=== PATIENT | female | born 1935 | race Caucasian/White ===

== ENCOUNTER → 2016-08-23 | Outpatient (REF) | payer MEDICARE, MEDICAID ==
[~2016-08-23] MED LIST: /AMLO25TA PO; /LEVE75TA PO; /MOM400 PO; /MOXI40TA PO; /PANT40TA PO; ACET50TA PO; ASPI81TA85 PO; BENA25TA4 PO; DILA100C PO; DOCU10ELUD PO; FURO40TA2 PO; GABA100C PO; HEPA50VL SQ; LEVA12INH INH; LIDO1DIS2 TD; LOPR50TA PO; MS C200T PO; MYLASSUD PO; NEUR250S PO; NYAM10003 TOP; PERCOCET PO; PHENYTOIN PO; PREPOIN TOP; PRIM25TA PO; PRIN10TA PO; ZOFR4TAB3 PO
[2016-08-23 14:16] LABS: YEAST LIKE CELL URINE AUTO SMALL
== END ==
PROVIDERS: ATTEND Internal Medicine
DX: N39.0 Urinary tract infection, site not specified (principal)

== ENCOUNTER → 2016-09-25 | Outpatient (REF) | payer MEDICARE, MEDICAID ==
[2016-09-25 12:48] LABS: BASO % 0.4 % (0.0-1.0); EOS # 0.3 K/mm3 (0.0-0.50); EOS % 2.4 % (0.0-3.0); LARGE UNSTAINED CELL # 0.3 K/mm3 (0.0-0.4); LARGE UNSTAINED CELL % 1.9 % (0.0-4.0); LYMPH # 1.8 K/mm3 (1.5-4.5); LYMPH % 13.2 % (24.0-44.0); MEAN CORPUSCULAR HEMOGLOBIN 33.5 pg (27.0-33.0); MEAN CORPUSCULAR HGB CONC 34.3 g/dl (32.0-36.5); MEAN CORPUSCULAR VOLUME 97.5 fl (80.0-96.0); MONO # 0.7 K/mm3 (0.0-0.8); MONO % 5.5 % (0.0-5.0); NEUTROPHILS # 10.2 K/mm3 (1.8-7.7); NEUTROPHILS % 76.6 % (36.0-66.0); PLATELET COUNT, AUTOMATED 541 k/mm3 (150-450); RED CELL DISTRIBUTION WIDTH 12.2 % (11.5-14.5); WHITE BLOOD COUNT 13.3 K/mm3 (4.0-10.0)
[2016-09-25 13:34] LABS: ALBUMIN 2.5 GM/DL (3.2-5.2); ALKALINE PHOSPHATASE 146 U/L (45-117); ALT/SGPT 31 U/L (12-78); ANION GAP 11 MEQ/L (8-16); AST/SGOT 45 U/L (15-37); BILIRUBIN,TOTAL 0.2 MG/DL (0.2-1.0); BLOOD UREA NITROGEN 37 MG/DL (7-18); CALCIUM LEVEL 8.7 MG/DL (8.8-10.2); CARBON DIOXIDE LEVEL 26 MEQ/L (21-32); CHLORIDE LEVEL 93 MEQ/L (98-107); CREATININE FOR GFR 1.19 MG/DL (0.55-1.02); GLOMERULAR FILTRATION RATE 46.3 (>32); GLUCOSE, FASTING 101 MG/DL (83-110); POTASSIUM SERUM 4.1 MEQ/L (3.5-5.1); SODIUM LEVEL 130 MEQ/L (136-145); TOTAL PROTEIN 7.5 GM/DL (6.4-8.2)
== END ==
PROVIDERS: ATTEND Internal Medicine
DX: R53.83 Other fatigue (principal)

== ENCOUNTER → 2016-09-28 | Outpatient (REF) | payer MEDICARE, MEDICAID ==
[2016-09-28 10:10] LABS: MEAN CORPUSCULAR HEMOGLOBIN 33.2 pg (27.0-33.0); MEAN CORPUSCULAR HGB CONC 33.8 g/dl (32.0-36.5); MEAN CORPUSCULAR VOLUME 98.1 fl (80.0-96.0); RED CELL DISTRIBUTION WIDTH 12.4 % (11.5-14.5)
== END ==
PROVIDERS: ATTEND Internal Medicine
DX: D72.829 Elevated white blood cell count, unspecified (principal)

== ENCOUNTER → 2016-10-02 | Outpatient (REF) | payer MEDICARE, MEDICAID | PROVIDERS: ATTEND Internal Medicine | DX: R31.9 Hematuria, unspecified (principal) ==

== ENCOUNTER → 2016-10-03 | Outpatient (REF) | payer MEDICARE, MEDICAID ==
--- NOTE | 2016-10-03 16:01 | REP ---
KUB: Two views: History: Urinary retention. Comparison study: 08/17/2015. Findings: There is diffuse osteopenia. Bowel gas pattern is unremarkable. Vascular calcification is noted. There is a 1.2 cm rim-calcification in the right pelvis. This may be a phlebolith. It is unchanged. Impression: Bowel gas pattern is unremarkable. Probable phlebolith in the right pelvis. Otherwise negative KUB. Signed by Adrian Calvo MD 10/03/2016 05:08 P
[2016-10-03 17:06] LABS: BASO # 0.1 K/mm3 (0.0-0.2); BASO % 0.6 % (0.0-1.0); EOS # 0.4 K/mm3 (0.0-0.50); EOS % 3.9 % (0.0-3.0); LARGE UNSTAINED CELL # 0.3 K/mm3 (0.0-0.4); LARGE UNSTAINED CELL % 2.4 % (0.0-4.0); LYMPH # 1.6 K/mm3 (1.5-4.5); LYMPH % 14.1 % (24.0-44.0); MEAN CORPUSCULAR HEMOGLOBIN 33.5 pg (27.0-33.0); MEAN CORPUSCULAR VOLUME 98.5 fl (80.0-96.0); MONO # 0.6 K/mm3 (0.0-0.8); MONO % 5.2 % (0.0-5.0); NEUTROPHILS # 8.3 K/mm3 (1.8-7.7); NEUTROPHILS % 73.7 % (36.0-66.0); PLATELET COUNT, AUTOMATED 600 k/mm3 (150-450); RED CELL DISTRIBUTION WIDTH 12.3 % (11.5-14.5); WHITE BLOOD COUNT 11.3 K/mm3 (4.0-10.0)
[2016-10-03 17:28] LABS: ALBUMIN 2.8 GM/DL (3.2-5.2); ALBUMIN/GLOBULIN RATIO 0.56 (1.00-1.93); BILIRUBIN,TOTAL 0.1 MG/DL (0.2-1.0); CREATININE FOR GFR 1.24 MG/DL (0.55-1.02); GLOMERULAR FILTRATION RATE 44.2 (>32); TOTAL PROTEIN 7.8 GM/DL (6.4-8.2)
== END ==
PROVIDERS: ATTEND Internal Medicine
DX: R33.8 Other retention of urine (principal)

== ENCOUNTER → 2016-10-06 | Outpatient (CLI) | payer MEDICARE ==
--- NOTE | 2016-10-06 11:44 | REP ---
RENAL AND BLADDER ULTRASOUND: Real-time sonographic evaluation of the kidneys is performed. The kidneys are normal in size and echotexture, right kidney measuring 12.5 x 7.5 x 7.2 cm and the left kidney 12.0 x 6.5 x 6.9 cm. There is moderate right hydronephrosis. There is moderately severe hydronephrosis on the left. Dilated right renal pelvis measures 36 mm and dilated left renal pelvis 39 mm. There is mild bilateral cortical thinning. A calculus in the upper pole of the right kidney measures 4 mm in diameter. The urinary bladder is mild to moderately distended with thickened trabeculated wall. IMPRESSION: Moderate right hydronephrosis, moderately severe left hydronephrosis. 4 mm stone upper pole right kidney. Thickened trabeculated bladder wall. Signed by Bang Hendricks MD 10/06/2016 04:59 P
== END ==
LOC: M RAD 10:39
PROVIDERS: ATTEND Internal Medicine
DX: R31.9 Hematuria, unspecified (principal); R33.9 Retention of urine, unspecified; G40.919 Epilepsy, unspecified, intractable, without status epilepticus

== ENCOUNTER → 2016-10-06 | Outpatient (REF) | payer MEDICARE, MEDICAID ==
[2016-10-06 12:03] LABS: MEAN CORPUSCULAR HEMOGLOBIN 32.9 pg (27.0-33.0); MEAN CORPUSCULAR HGB CONC 32.8 g/dl (32.0-36.5); MEAN CORPUSCULAR VOLUME 100.3 fl (80.0-96.0); RED CELL DISTRIBUTION WIDTH 12.9 % (11.5-14.5); WHITE BLOOD COUNT 11.4 K/mm3 (4.0-10.0)
[2016-10-06 12:16] LABS: CALCIUM LEVEL 8.8 MG/DL (8.8-10.2); CREATININE FOR GFR 0.99 MG/DL (0.55-1.02); GLOMERULAR FILTRATION RATE 57.3 (>32)
[2016-10-06 12:20] LABS: POTASSIUM SERUM 5.2 MEQ/L (3.5-5.1)
== END ==
PROVIDERS: ATTEND Internal Medicine
DX: G40.919 Epilepsy, unspecified, intractable, without status epilepticus (principal)

== ENCOUNTER → 2016-10-09 | Outpatient (REF) | payer MEDICARE ==
[2016-10-09 11:21] LABS: MEAN CORPUSCULAR HEMOGLOBIN 34.2 pg (27.0-33.0); MEAN CORPUSCULAR HGB CONC 33.9 g/dl (32.0-36.5); MEAN CORPUSCULAR VOLUME 100.9 fl (80.0-96.0); RED CELL DISTRIBUTION WIDTH 13.2 % (11.5-14.5); WHITE BLOOD COUNT 9.5 K/mm3 (4.0-10.0)
[2016-10-09 12:03] LABS: ANION GAP 13 MEQ/L (8-16); BLOOD UREA NITROGEN 28 MG/DL (7-18); CALCIUM LEVEL 9.2 MG/DL (8.8-10.2); CARBON DIOXIDE LEVEL 28 MEQ/L (21-32); CHLORIDE LEVEL 93 MEQ/L (98-107); CREATININE FOR GFR 0.76 MG/DL (0.55-1.02); GLOMERULAR FILTRATION RATE > 60.0 (>32); GLUCOSE, FASTING 75 MG/DL (83-110); POTASSIUM SERUM 4.6 MEQ/L (3.5-5.1); SODIUM LEVEL 134 MEQ/L (136-145)
== END ==
PROVIDERS: ATTEND Internal Medicine
DX: N13.30 Unspecified hydronephrosis (principal)

== ENCOUNTER → 2016-10-13 | Outpatient (CLI) | payer MEDICARE ==
--- NOTE | 2016-10-13 10:15 | REP ---
CT study abdomen and pelvis without IV or oral contrast: Renal stone protocol. History: Hydronephrosis. Comparison CT study is from December 27, 2012. This was a CT study of the chest. CT findings: Preliminary digital cam maker radiograph shows an unremarkable bowel gas pattern. The lung bases show some mild discoid atelectasis in the right base. Left hemidiaphragm shows an eventration and is elevated. There is evidence of a small amount of pleural fluid in the left base. The liver and the spleen are normal in size, homogeneous in texture. No adrenal lesion is seen on either side. Pancreas is unremarkable. The gallbladder is not seen. The patient does not give a history of cholecystectomy. It may be tiny and contracted. There is some vascular calcification. A Luis catheter is seen in the urinary bladder. There is formed stool producing mild distension of the rectum. Small and large intestinal bowel loops are unremarkable. No abdominal wall defect is seen. There is no evidence of free air or free fluid. There is right-sided hydronephrosis and hydroureter moderate in degree. There are calcific densities in the intrarenal collecting system of the right kidney posteriorly at mid renal level. The right ureter is dilated and can be traced distally to the level of the mid to distal pelvis. There are some calcifications adjacent to the distal ureter but no definite ureteral stone is seen. No left ureteral calculus is observed. There is mild left-sided hydronephrosis. No intrarenal nephrolithiasis is noted on the left. No bony destructive lesion is seen. There are degenerative spondylosis changes in the lower lumbar spine. Impression: 1. Bilateral hydronephrosis. Intrarenal nephrolithiasis on the right. No ureteral stone is seen. Bilateral ureteral dilation is observed to the distal pelvis. 2. Formed stool distends the rectum, question fecal impaction. 3. Luis catheter. 4. Small left pleural effusion. Gallbladder not visualized, question small and contracted. Signed by Adrian Calvo MD 10/13/2016 01:59 P
== END ==
LOC: M RAD 09:29
PROVIDERS: ATTEND Nurse Practitioner Adult Health
DX: N13.30 Unspecified hydronephrosis (principal)

== ENCOUNTER → 2016-10-25 | Outpatient (CLI) | payer MEDICARE ==
--- NOTE | 2016-10-25 11:07 | REP ---
Clinical: Urinary retention. Technique: Real time soni scale ultrasound examination using curved array transducer. Findings: Bilateral kidneys demonstrate cortical thinning and prominent central sinus fat consistent with chronic medical renal disease and atrophy. Moderate bilateral hydronephrosis and proximal hydroureter noted. Luis catheter in collapsed bladder. Right kidney measures 11.3 x 6.9 x 5.6 cm; renal pelvis measures 23 mm. Left kidney measures 12.1 x 6.2 x 4.6 cm; renal pelvis measures 23 mm. Impression: Chronic medical renal disease with moderate bilateral hydronephrosis. Signed by Bart Cunningham MD 10/25/2016 10:59 A
== END ==
LOC: M RAD 10:23
PROVIDERS: ATTEND Nurse Practitioner Adult Health
DX: R33.9 Retention of urine, unspecified (principal)

== ENCOUNTER → 2016-11-28 | Outpatient (REF) | payer MEDICARE, MEDICAID ==
[2016-11-28 11:14] LABS: MEAN CORPUSCULAR HEMOGLOBIN 35.4 pg (27.0-33.0); MEAN CORPUSCULAR HGB CONC 33.9 g/dl (32.0-36.5); MEAN CORPUSCULAR VOLUME 104.6 fl (80.0-96.0); RED CELL DISTRIBUTION WIDTH 13.1 % (11.5-14.5); WHITE BLOOD COUNT 8.6 K/mm3 (4.0-10.0)
== END ==
PROVIDERS: ATTEND Internal Medicine
DX: D64.9 Anemia, unspecified (principal)

== ENCOUNTER → 2016-12-14 | Outpatient (CLI) | payer MEDICARE ==
--- NOTE | 2016-12-14 13:29 | REP ---
Clinical: Hydronephrosis. Comparison: 10/25/2016. Technique: Real time soni scale and color evaluation using curved array transducer. Findings: The kidneys are normal in reniform shape and size demonstrating increased medullary sinus fat and associated cortical thinning suggesting chronic medical renal disease. Mild bilateral hydronephrosis and proximal hydroureter is appreciated which appears mildly improved compared to 10/25/2016. No obvious nephrolithiasis, cystic or mass lesions identified. Right kidney measures 9.4 x 4.6 x 5.0 cm. Left kidney measures 10.5 x 3.5 x 5.1 cm. Impression: Kidneys demonstrate changes related to chronic medical renal disease as well as mild bilateral hydronephrosis mildly improved compared to prior examination. Signed by Bart Cunningham MD 12/14/2016 01:22 P
== END ==
LOC: M RAD 12:40
PROVIDERS: ATTEND Nurse Practitioner Adult Health
DX: N13.30 Unspecified hydronephrosis (principal)

== ENCOUNTER → 2017-01-03 | Outpatient (REF) | payer MEDICARE ==
[2017-01-03 10:37] LABS: MEAN CORPUSCULAR HEMOGLOBIN 35.6 pg (27.0-33.0); MEAN CORPUSCULAR HGB CONC 34.5 g/dl (32.0-36.5); RED CELL DISTRIBUTION WIDTH 12.2 % (11.5-14.5); WHITE BLOOD COUNT 7.1 K/mm3 (4.0-10.0)
[2017-01-03 10:54] LABS: ALBUMIN 2.8 GM/DL (3.2-5.2); ALBUMIN/GLOBULIN RATIO 0.76 (1.00-1.93); ALKALINE PHOSPHATASE 112 U/L (45-117); ALT/SGPT 21 U/L (12-78); ANION GAP 9 MEQ/L (8-16); AST/SGOT 19 U/L (15-37); BILIRUBIN,TOTAL 0.2 MG/DL (0.2-1.0); BLOOD UREA NITROGEN 20 MG/DL (7-18); CALCIUM LEVEL 8.7 MG/DL (8.8-10.2); CARBON DIOXIDE LEVEL 28 MEQ/L (21-32); CHLORIDE LEVEL 95 MEQ/L (98-107); CREATININE FOR GFR 0.61 MG/DL (0.55-1.02); GLOMERULAR FILTRATION RATE > 60.0 (>32); GLUCOSE, FASTING 112 MG/DL (83-110); POTASSIUM SERUM 4.1 MEQ/L (3.5-5.1); SODIUM LEVEL 132 MEQ/L (136-145); TOTAL PROTEIN 6.5 GM/DL (6.4-8.2)
[2017-01-06 00:07] LABS: PHENOBARBITAL (PRIMIDONE) 6 ug/mL (15-40)
== END ==
PROVIDERS: ATTEND Internal Medicine
DX: G40.909 Epilepsy, unspecified, not intractable, without status epilepticus (principal)

== ENCOUNTER → 2017-01-24 | Outpatient (REF) ==
[2017-01-26 01:12] LABS: PHENOBARBITAL (PRIMIDONE) 8 ug/mL (15-40)
== END ==
PROVIDERS: ATTEND Internal Medicine
DX: G40.909 Epilepsy, unspecified, not intractable, without status epilepticus (principal)

== ENCOUNTER → 2017-02-08 | Outpatient (REF) | payer MEDICARE, MEDICAID ==
[2017-02-09 00:23] LABS: TRIPLE PHOSPHATE CRYSTALS SMALL
== END ==
PROVIDERS: ATTEND Internal Medicine
DX: R30.0 Dysuria (principal)

== ENCOUNTER → 2017-02-12 | Outpatient (REF) | payer MEDICARE, MEDICAID | PROVIDERS: ATTEND Internal Medicine | DX: N39.0 Urinary tract infection, site not specified (principal) ==

== ENCOUNTER → 2017-03-14 | Outpatient (REF) | payer MEDICARE, MEDICAID | PROVIDERS: ATTEND Internal Medicine | DX: R31.9 Hematuria, unspecified (principal) ==

== ENCOUNTER → 2017-03-20 | Outpatient (REF) | payer MEDICARE, MEDICAID | PROVIDERS: ATTEND Internal Medicine | DX: N39.0 Urinary tract infection, site not specified (principal) ==

== ENCOUNTER → 2017-04-06 | Outpatient (REF) | payer MEDICARE, MEDICAID | PROVIDERS: ATTEND Internal Medicine | DX: Z00.00 Encounter for general adult medical examination without abnormal findings (principal) ==

== ENCOUNTER → 2017-05-16 | Outpatient (REF) | payer MEDICARE, MEDICAID ==
[2017-05-16 13:30] LABS: BASO % 0.6 % (0.0-1.0); EOS # 0.5 10^3/uL (0.0-0.50); EOS % 6.9 % (0.0-3.0); IMMATURE GRANULOCYTE % 0.1 % (0-0); LYMPH # 2.4 10^3/uL (1.5-4.5); LYMPH % 33.3 % (24.0-44.0); MEAN CORPUSCULAR HEMOGLOBIN 33.9 pg (27.0-33.0); MEAN CORPUSCULAR HGB CONC 33.5 g/dl (32.0-36.5); MEAN CORPUSCULAR VOLUME 101.1 fl (80.0-96.0); MONO # 0.7 10^3/uL (0.0-0.8); MONO % 9.1 % (0.0-5.0); NEUTROPHILS # 3.6 10^3/uL (1.8-7.7); PLATELET COUNT, AUTOMATED 293 10^3/uL (150-450); RED CELL DISTRIBUTION WIDTH 12.6 % (11.5-14.5); WHITE BLOOD COUNT 7.3 10^3/uL (4.0-10.0)
--- NOTE | 2017-05-16 13:52 | REP ---
Chest one-view HISTORY: Fever Comparison: 06/08/2016 There is poor inspiratory effort. Linear density is present in the right lower lobe consistent with scar. The left lung is clear. The cardiac silhouette is enlarged. The pulmonary vasculature is normal in appearance. Impression: Cardiomegaly. Signed by Raymond Chambers MD 05/16/2017 01:43 P
[2017-05-16 13:55] LABS: ALBUMIN/GLOBULIN RATIO 0.79 (1.00-1.93); ALKALINE PHOSPHATASE 105 U/L (45-117); ALT/SGPT 31 U/L (12-78); ANION GAP 9 MEQ/L (8-16); AST/SGOT 30 U/L (15-37); BILIRUBIN,TOTAL 0.2 MG/DL (0.2-1.0); BLOOD UREA NITROGEN 17 MG/DL (7-18); CALCIUM LEVEL 8.8 MG/DL (8.8-10.2); CARBON DIOXIDE LEVEL 30 MEQ/L (21-32); CHLORIDE LEVEL 95 MEQ/L (98-107); CREATININE FOR GFR 0.65 MG/DL (0.55-1.02); GLOMERULAR FILTRATION RATE > 60.0 (>32); GLUCOSE, FASTING 115 MG/DL (83-110); POTASSIUM SERUM 4.1 MEQ/L (3.5-5.1); SODIUM LEVEL 134 MEQ/L (136-145); TOTAL PROTEIN 6.8 GM/DL (6.4-8.2)
== END ==
PROVIDERS: ATTEND Internal Medicine
DX: R50.9 Fever, unspecified (principal); R06.02 Shortness of breath

== ENCOUNTER → 2017-06-25 | Outpatient (REF) | payer MEDICARE, MEDICAID | PROVIDERS: ATTEND Internal Medicine | DX: R10.9 Unspecified abdominal pain (principal) ==

== ENCOUNTER → 2017-07-04 | Outpatient (REF) | payer MEDICARE, MEDICAID ==
[2017-07-04 10:29] LABS: MEAN CORPUSCULAR HEMOGLOBIN 33.6 pg (27.0-33.0); MEAN CORPUSCULAR HGB CONC 33.4 g/dl (32.0-36.5); MEAN CORPUSCULAR VOLUME 100.5 fl (80.0-96.0); PLATELET COUNT, AUTOMATED 319 10^3/uL (150-450); RED CELL DISTRIBUTION WIDTH 12.3 % (11.5-14.5); WHITE BLOOD COUNT 9.1 10^3/uL (4.0-10.0)
[2017-07-04 10:49] LABS: ALBUMIN/GLOBULIN RATIO 0.73 (1.00-1.93); ALKALINE PHOSPHATASE 99 U/L (45-117); ALT/SGPT 25 U/L (12-78); ANION GAP 11 MEQ/L (8-16); AST/SGOT 17 U/L (7-37); BILIRUBIN,TOTAL 0.3 MG/DL (0.2-1.0); BLOOD UREA NITROGEN 22 MG/DL (7-18); CALCIUM LEVEL 9.1 MG/DL (8.8-10.2); CARBON DIOXIDE LEVEL 28 MEQ/L (21-32); CHLORIDE LEVEL 96 MEQ/L (98-107); CREATININE FOR GFR 0.68 MG/DL (0.55-1.02); GLOMERULAR FILTRATION RATE > 60.0 (>32); GLUCOSE, FASTING 127 MG/DL (83-110); POTASSIUM SERUM 4.7 MEQ/L (3.5-5.1); SODIUM LEVEL 135 MEQ/L (136-145); TOTAL PROTEIN 7.1 GM/DL (6.4-8.2)
== END ==
PROVIDERS: ATTEND Internal Medicine
DX: R56.9 Unspecified convulsions (principal)

== ENCOUNTER → 2017-08-21 | Outpatient (REF) | LOC: M RAD 11:51 | DX: Z00.00 Encounter for general adult medical examination without abnormal findings (principal) ==

== ENCOUNTER → 2017-10-03 | Outpatient (REF) | payer MEDICARE, MEDICAID ==
[2017-10-03 08:28] LABS: ANION GAP 5 MEQ/L (8-16); BLOOD UREA NITROGEN 15 MG/DL (7-18); CALCIUM LEVEL 8.5 MG/DL (8.8-10.2); CARBON DIOXIDE LEVEL 31 MEQ/L (21-32); CHLORIDE LEVEL 97 MEQ/L (98-107); CREATININE FOR GFR 0.51 MG/DL (0.55-1.30); GLOMERULAR FILTRATION RATE > 60.0 (>32); GLUCOSE, FASTING 79 MG/DL (70-100); SODIUM LEVEL 133 MEQ/L (136-145)
== END ==
DX: N13.30 Unspecified hydronephrosis (principal)
CPT/HCPCS: 80048

== ENCOUNTER → 2017-10-08 | Outpatient (CLI) | payer MEDICARE, MEDICAID ==
[~2017-10-08] MED LIST changes: -/AMLO25TA PO; -/LEVE75TA PO; -/MOM400 PO; -/MOXI40TA PO; -/PANT40TA PO; -ACET50TA PO; -ASPI81TA85 PO; -BENA25TA4 PO; -DILA100C PO; -DOCU10ELUD PO; -FURO40TA2 PO; -GABA100C PO; +GASTROGRAFIN SOLUTION 30ML (Q9963) As Ordered; -HEPA50VL SQ; +ISOVUE-370 76% 100ML VIAL (Q9967) As Ordered; -LEVA12INH INH; -LIDO1DIS2 TD; -LOPR50TA PO; -MS C200T PO; -MYLASSUD PO; -NEUR250S PO; -NYAM10003 TOP; -PERCOCET PO; -PHENYTOIN PO; -PREPOIN TOP; -PRIM25TA PO; -PRIN10TA PO; -ZOFR4TAB3 PO
== END ==
LOC: M RAD 12:20
DX: N13.30 Unspecified hydronephrosis (principal)
CPT/HCPCS: Q9963

== ENCOUNTER → 2017-12-17 | Outpatient (REF) | payer MEDICARE, MEDICAID ==
[2017-12-17 14:31] LABS: HEMOGLOBIN 13.5 g/dl (12.0-15.5); MEAN CORPUSCULAR HEMOGLOBIN 34.5 pg (27.0-33.0); MEAN CORPUSCULAR HGB CONC 34.6 g/dl (32.0-36.5); MEAN CORPUSCULAR VOLUME 99.7 fl (80.0-96.0); PLATELET COUNT, AUTOMATED 284 10^3/uL (150-450); RED BLOOD COUNT 3.91 10^6/uL (4.00-5.40); RED CELL DISTRIBUTION WIDTH 12.6 % (11.5-14.5)
[2017-12-17 15:02] LABS: ANION GAP 4 MEQ/L (8-16); BLOOD UREA NITROGEN 19 MG/DL (7-18); CALCIUM LEVEL 9.2 MG/DL (8.8-10.2); CARBON DIOXIDE LEVEL 33 MEQ/L (21-32); CHLORIDE LEVEL 94 MEQ/L (98-107); CREATININE FOR GFR 0.64 MG/DL (0.55-1.30); GLOMERULAR FILTRATION RATE > 60.0 (>32); GLUCOSE, FASTING 100 MG/DL (70-100); POTASSIUM SERUM 4.6 MEQ/L (3.5-5.1); SODIUM LEVEL 131 MEQ/L (136-145)
== END ==
DX: Z01.818 Encounter for other preprocedural examination (principal)
CPT/HCPCS: 80048

== ENCOUNTER → 2018-01-04 | Outpatient (REF) | payer MEDICARE, MEDICAID ==
[2018-01-04 11:01] LABS: HEMATOCRIT 37.7 % (36.0-47.0); HEMOGLOBIN 12.8 g/dl (12.0-15.5); MEAN CORPUSCULAR HEMOGLOBIN 34.2 pg (27.0-33.0); MEAN CORPUSCULAR VOLUME 100.8 fl (80.0-96.0); PLATELET COUNT, AUTOMATED 310 10^3/uL (150-450); RED BLOOD COUNT 3.74 10^6/uL (4.00-5.40); RED CELL DISTRIBUTION WIDTH 12.6 % (11.5-14.5)
[2018-01-04 11:47] LABS: ALBUMIN 2.9 GM/DL (3.2-5.2); ALBUMIN/GLOBULIN RATIO 0.74 (1.00-1.93); ALKALINE PHOSPHATASE 111 U/L (45-117); ALT/SGPT 22 U/L (12-78); ANION GAP 8 MEQ/L (8-16); AST/SGOT 19 U/L (7-37); BILIRUBIN,TOTAL 0.2 MG/DL (0.2-1.0); BLOOD UREA NITROGEN 17 MG/DL (7-18); CALCIUM LEVEL 8.7 MG/DL (8.8-10.2); CARBON DIOXIDE LEVEL 30 MEQ/L (21-32); CHLORIDE LEVEL 96 MEQ/L (98-107); GLOMERULAR FILTRATION RATE > 60.0 (>32); GLUCOSE, FASTING 92 MG/DL (70-100); POTASSIUM SERUM 4.3 MEQ/L (3.5-5.1); SODIUM LEVEL 134 MEQ/L (136-145); TOTAL PROTEIN 6.8 GM/DL (6.4-8.2)
== END ==
DX: G40.909 Epilepsy, unspecified, not intractable, without status epilepticus (principal)
CPT/HCPCS: 80188

== ENCOUNTER → 2018-01-14 | Outpatient (REF) | payer MEDICARE, MEDICAID ==
[2018-01-14 17:02] LABS: HEMATOCRIT 37.6 % (36.0-47.0); HEMOGLOBIN 13.2 g/dl (12.0-15.5); MEAN CORPUSCULAR HGB CONC 35.1 g/dl (32.0-36.5); MEAN CORPUSCULAR VOLUME 99.7 fl (80.0-96.0); PLATELET COUNT, AUTOMATED 303 10^3/uL (150-450); RED BLOOD COUNT 3.77 10^6/uL (4.00-5.40); RED CELL DISTRIBUTION WIDTH 12.3 % (11.5-14.5)
[2018-01-14 17:33] LABS: ANION GAP 9 MEQ/L (8-16); BLOOD UREA NITROGEN 20 MG/DL (7-18); CALCIUM LEVEL 8.8 MG/DL (8.8-10.2); CARBON DIOXIDE LEVEL 30 MEQ/L (21-32); CHLORIDE LEVEL 94 MEQ/L (98-107); CREATININE FOR GFR 0.64 MG/DL (0.55-1.30); GLOMERULAR FILTRATION RATE > 60.0 (>32); GLUCOSE, FASTING 90 MG/DL (70-100); POTASSIUM SERUM 4.9 MEQ/L (3.5-5.1); SODIUM LEVEL 133 MEQ/L (136-145)
== END ==
DX: Z01.818 Encounter for other preprocedural examination (principal)
CPT/HCPCS: 80048

== ENCOUNTER 2018-01-22 06:59 | Day surgery (SDC) | payer MEDICARE, MEDICAID ==
[~2018-01-22 06:59] MED LIST changes: +ACETAMINOPHEN 325 MG TAB PO; -GASTROGRAFIN SOLUTION 30ML (Q9963) As Ordered; -ISOVUE-370 76% 100ML VIAL (Q9967) As Ordered
[2018-01-22] MEDS ORDERED: PHENYLEPHRINE HCL 10 % OPHTH. SOL 5ML OD (07:00)
[2018-01-22] MEDS ORDERED: TROPICAMIDE 1% OPHTH SOLN 2ML As Ordered (07:10)
[2018-01-22] MEDS ORDERED: OFLOXACIN 0.3 % (OCUFLOX) OPTH SOL 5ML As Ordered (07:10)
[2018-01-22] MEDS ORDERED: CYCLOPENTOLATE 2% OPHTH SOLN 2ML BTL As Ordered (07:10)
[2018-01-22] MEDS ORDERED: PHENYLEPHRINE 2.5% OPHTH SOL 2ML As Ordered (07:10)
[2018-01-22] MEDS: TROPICAMIDE 1% OPHTH SOLN 2ML OD (07:32)
[2018-01-22] MEDS: LIDOCAINE 3.5 % 1ML OPHTH TOPICAL GEL OU (07:32)
[2018-01-22] MEDS: CYCLOPENTOLATE 2% OPHTH SOLN 2ML BTL OD (07:32)
[2018-01-22] MEDS: OFLOXACIN 0.3 % (OCUFLOX) OPTH SOL 5ML OD (07:32)
[2018-01-22] MEDS: PHENYLEPHRINE 2.5% OPHTH SOL 2ML OD (07:32)
[2018-01-22] MEDS: POVIDONE-IODINE 5% OPHTH PREP SOL 30ML As Ordered (08:30)
[2018-01-22] MEDS ORDERED: fentaNYL 100 MCG/2 ML INJECTION (J3010) As Ordered (08:31)
[2018-01-22] MEDS: LIDOCAINE 1% SDV 5 ML VIAL As Ordered (08:38)
[2018-01-22] MEDS: TRIAMCINOLONE PRES FR 40 MG/ML 1ML(TRIESENCE)(OR EYE ONLY)(J3300 PER 1MG) As Ordered (08:38)
[2018-01-22] MEDS: HEALON DUET (HEALON 10MG/ML 0.55ML & HEALON ENDOCOAT 30MG/ML 0.85ML) As Ordered (08:38)
[2018-01-22] MEDS: BSS with VANC/TOB/EPI for EYE CASES IR (08:38)
[2018-01-22] MEDS: MOXIFLOXACIN IN BSS 0.25MG/0.25ML INTRACAMERAL INJ (OR EYE ONLY)(J2280) As Ordered (08:38)
[2018-01-22] MEDS ORDERED: AcetaZOLAMIDE 500 MG ER CAP As Ordered (09:32)
[2018-01-22] MEDS: AcetaZOLAMIDE 500 MG ER CAP PO (09:45)
[2018-01-22] MEDS ORDERED: TRIMETHOBENZAMIDE 300 MG CAP PO (09:45)
== END 2018-01-22 10:13 | disposition home or self-care (01) ==
LOC: M SDC 06:59
DX: H25.9 Unspecified age-related cataract (principal); H57.03 Miosis; I10 Essential (primary) hypertension; I50.9 Heart failure, unspecified; K21.9 Gastro-esophageal reflux disease without esophagitis; Z79.899 Other long term (current) drug therapy
CPT/HCPCS: 66982

== ENCOUNTER → 2018-02-08 | Outpatient (REF) | payer MEDICARE, MEDICAID | DX: N39.0 Urinary tract infection, site not specified (principal) | CPT/HCPCS: 87186 ==

== ENCOUNTER → 2018-02-25 | Outpatient (REF) | payer MEDICARE, MEDICAID ==
[2018-02-25 12:55] LABS: HEMOGLOBIN 13.8 g/dl (12.0-15.5); MEAN CORPUSCULAR HEMOGLOBIN 34.6 pg (27.0-33.0); MEAN CORPUSCULAR HGB CONC 34.5 g/dl (32.0-36.5); MEAN CORPUSCULAR VOLUME 100.3 fl (80.0-96.0); PLATELET COUNT, AUTOMATED 318 10^3/uL (150-450); RED BLOOD COUNT 3.99 10^6/uL (4.00-5.40); RED CELL DISTRIBUTION WIDTH 12.1 % (11.5-14.5); WHITE BLOOD COUNT 10.1 10^3/uL (4.0-10.0)
[2018-02-25 13:29] LABS: ALBUMIN 2.9 GM/DL (3.2-5.2); ALBUMIN/GLOBULIN RATIO 0.71 (1.00-1.93); ALKALINE PHOSPHATASE 105 U/L (45-117); ALT/SGPT 30 U/L (12-78); ANION GAP 9 MEQ/L (8-16); AST/SGOT 22 U/L (7-37); BILIRUBIN,TOTAL 0.3 MG/DL (0.2-1.0); BLOOD UREA NITROGEN 22 MG/DL (7-18); CALCIUM LEVEL 8.7 MG/DL (8.8-10.2); CARBON DIOXIDE LEVEL 30 MEQ/L (21-32); CHLORIDE LEVEL 97 MEQ/L (98-107); CREATININE FOR GFR 0.65 MG/DL (0.55-1.30); GLOMERULAR FILTRATION RATE > 60.0 (>32); GLUCOSE, FASTING 83 MG/DL (70-100); SODIUM LEVEL 136 MEQ/L (136-145)
== END ==
DX: R10.9 Unspecified abdominal pain (principal)
CPT/HCPCS: 80053

== ENCOUNTER → 2018-02-26 | Outpatient (REF) | payer MEDICARE, MEDICAID | DX: R19.7 Diarrhea, unspecified (principal) | CPT/HCPCS: 87507 ==

== ENCOUNTER → 2018-03-14 | Outpatient (REF) | payer MEDICARE, MEDICAID ==
[2018-03-14 10:01] LABS: HEMATOCRIT 42.3 % (36.0-47.0); HEMOGLOBIN 14.5 g/dl (12.0-15.5); MEAN CORPUSCULAR HEMOGLOBIN 34.3 pg (27.0-33.0); MEAN CORPUSCULAR HGB CONC 34.3 g/dl (32.0-36.5); PLATELET COUNT, AUTOMATED 272 10^3/uL (150-450); RED BLOOD COUNT 4.23 10^6/uL (4.00-5.40); RED CELL DISTRIBUTION WIDTH 11.8 % (11.5-14.5); WHITE BLOOD COUNT 9.5 10^3/uL (4.0-10.0)
[2018-03-14 10:33] LABS: ALBUMIN/GLOBULIN RATIO 0.65 (1.00-1.93); ALKALINE PHOSPHATASE 109 U/L (45-117); ALT/SGPT 26 U/L (12-78); ANION GAP 7 MEQ/L (8-16); AST/SGOT 22 U/L (7-37); BILIRUBIN,TOTAL 0.3 MG/DL (0.2-1.0); BLOOD UREA NITROGEN 13 MG/DL (7-18); CARBON DIOXIDE LEVEL 33 MEQ/L (21-32); CHLORIDE LEVEL 96 MEQ/L (98-107); CREATININE FOR GFR 0.57 MG/DL (0.55-1.30); GLOMERULAR FILTRATION RATE > 60.0 (>32); GLUCOSE, FASTING 84 MG/DL (70-100); NT-PRO BNP 215 PG/ML (<450); POTASSIUM SERUM 4.4 MEQ/L (3.5-5.1); SODIUM LEVEL 136 MEQ/L (136-145); TOTAL PROTEIN 7.6 GM/DL (6.4-8.2); TROPONIN I < 0.02 NG/ML (< 0.10)
== END ==
DX: R07.9 Chest pain, unspecified (principal); I51.7 Cardiomegaly
CPT/HCPCS: 80053

== ENCOUNTER → 2018-07-02 | Outpatient (REF) | payer MEDICARE, MEDICAID ==
[2018-07-02 10:09] LABS: HEMATOCRIT 41.4 % (36.0-47.0); MEAN CORPUSCULAR HEMOGLOBIN 33.7 pg (27.0-33.0); MEAN CORPUSCULAR HGB CONC 33.8 g/dl (32.0-36.5); MEAN CORPUSCULAR VOLUME 99.8 fl (80.0-96.0); PLATELET COUNT, AUTOMATED 341 10^3/uL (150-450); RED BLOOD COUNT 4.15 10^6/uL (4.00-5.40); RED CELL DISTRIBUTION WIDTH 12.4 % (11.5-14.5); WHITE BLOOD COUNT 11.1 10^3/uL (4.0-10.0)
[2018-07-02 10:40] LABS: ALBUMIN 3.2 GM/DL (3.2-5.2); ALBUMIN/GLOBULIN RATIO 0.78 (1.00-1.93); ALKALINE PHOSPHATASE 114 U/L (45-117); ALT/SGPT 16 U/L (12-78); ANION GAP 11 MEQ/L (8-16); AST/SGOT 13 U/L (7-37); BILIRUBIN,TOTAL 0.3 MG/DL (0.2-1.0); BLOOD UREA NITROGEN 19 MG/DL (7-18); CALCIUM LEVEL 9.2 MG/DL (8.8-10.2); CARBON DIOXIDE LEVEL 29 MEQ/L (21-32); CHLORIDE LEVEL 95 MEQ/L (98-107); CREATININE FOR GFR 0.78 MG/DL (0.55-1.30); GLOMERULAR FILTRATION RATE > 60.0 (>32); GLUCOSE, FASTING 126 MG/DL (70-100); POTASSIUM SERUM 4.1 MEQ/L (3.5-5.1); SODIUM LEVEL 135 MEQ/L (136-145); TOTAL PROTEIN 7.3 GM/DL (6.4-8.2)
== END ==
DX: G40.909 Epilepsy, unspecified, not intractable, without status epilepticus (principal)
CPT/HCPCS: 80188

== ENCOUNTER → 2018-07-24 | Outpatient (REF) | payer MEDICARE, MEDICAID ==
[~2018-07-24] MED LIST changes: +/AMLO25TA PO; +/LEVE75TA PO; +/MOM400 PO; +/MOXI40TA PO; +/PANT40TA PO; +ACET-683 PO; +ACET50TA PO; -ACETAMINOPHEN 325 MG TAB PO; +ALDA25TA2 PO; +ASPI325T25 PO; +ASPI81TA85 PO; +BENA25TA4 PO; +COLA100C5 PO; +DILA100C PO; +DOCU10ELUD PO; +FURO40TA2 PO; +GABA100C PO; +HEPA50VL SQ; +KEPP1TAB PO; +LEVA12INH INH; +LIDO1DIS2 TD; +LOPR50TA PO; +MAGN200T PO; +MAGN64TASA PO; +MIRA33504 PO; +MS C200T PO; +MULT1TAB10 PO; +MYLASSUD PO; +NEUR250S PO; +NYAM10003 TOP; +PAME10CA PO; +PERCOCET PO; +PHENYTOIN PO; +PREPOIN TOP; +PRIM25TA PO; +PRIM50TA6 PO; +PRIN10TA PO; +RANI150T PO; +SENN8.6T7 PO; +ZOFR4TAB3 PO
[2018-07-24 14:21] LABS: APPEARANCE, URINE TURBID (CLEAR); BACTERIA, URINE AUTO 1+ (NEGATIVE); BILIRUBIN, URINE AUTO NEGATIVE (NEGATIVE); BLOOD, URINE BLOOD 1+ (NEGATIVE); COLOR, URINE YELLOW (YELLOW); GLUCOSE, URINE (UA) AUTO NEGATIVE (NEGATIVE); KETONE, URINE AUTO NEGATIVE (NEGATIVE); LEUKOCYTE ESTERASE, URINE AUTO 3+ (NEGATIVE); NITRITE, URINE AUTO NEGATIVE (NEGATIVE); PROTEIN, URINE AUTO 1+ mg/dL (NEGATIVE); RBC, URINE AUTO 33 /HPF (0-3); SPECIFIC GRAVITY URINE AUTO 1.006 (1.002-1.035); SQUAMOUS EPITHELIAL CELL UR AU 0 /HPF (0-6); UROBILINOGEN, URINE AUTO 0.2 mg/dL (0.0-2.0); WBC, URINE AUTO TNTC /HPF (0-3)
== END ==
PROVIDERS: ATTEND Internal Medicine
DX: R10.9 Unspecified abdominal pain (principal)

== ENCOUNTER → 2018-08-30 | Outpatient (REF) | payer MEDICARE, MEDICAID | PROVIDERS: ATTEND Internal Medicine | DX: R19.7 Diarrhea, unspecified (principal) ==

== ENCOUNTER → 2018-09-01 | Outpatient (REF) | payer MEDICARE, MEDICAID | LOC: SKLAB3 14:08 | PROVIDERS: ATTEND Internal Medicine | DX: R19.7 Diarrhea, unspecified (principal) ==

== ENCOUNTER → 2018-09-25 | Outpatient (REF) | payer MEDICARE, MEDICAID ==
[2018-09-25 08:48] LABS: BLOOD UREA NITROGEN 16 MG/DL (7-18); CALCIUM LEVEL 8.7 MG/DL (8.8-10.2); CARBON DIOXIDE LEVEL 33 MEQ/L (21-32); CHLORIDE LEVEL 95 MEQ/L (98-107); CREATININE FOR GFR 0.56 MG/DL (0.55-1.30); GLOMERULAR FILTRATION RATE > 60.0 (>32); GLUCOSE, FASTING 86 MG/DL (70-100); POTASSIUM SERUM 4.1 MEQ/L (3.5-5.1); SODIUM LEVEL 134 MEQ/L (136-145)
== END ==
PROVIDERS: ATTEND Internal Medicine
DX: I50.9 Heart failure, unspecified (principal)

== ENCOUNTER → 2018-10-01 | Outpatient (REF) | payer MEDICARE, MEDICAID ==
[2018-10-01 13:07] LABS: BLOOD UREA NITROGEN 16 MG/DL (7-18); CARBON DIOXIDE LEVEL 19 MEQ/L (21-32); CHLORIDE LEVEL 97 MEQ/L (98-107); CREATININE FOR GFR 0.62 MG/DL (0.55-1.30); GLOMERULAR FILTRATION RATE > 60.0 (>32); GLUCOSE, FASTING 89 MG/DL (70-100); POTASSIUM SERUM 5.8 MEQ/L (3.5-5.1); SODIUM LEVEL 133 MEQ/L (136-145)
[2018-10-02 10:51] LABS: BLOOD UREA NITROGEN 16 MG/DL (7-18); CARBON DIOXIDE LEVEL 29 MEQ/L (21-32); CHLORIDE LEVEL 93 MEQ/L (98-107); CREATININE FOR GFR 0.65 MG/DL (0.55-1.30); GLOMERULAR FILTRATION RATE > 60.0 (>32); GLUCOSE, FASTING 110 MG/DL (70-100); POTASSIUM SERUM 4.5 MEQ/L (3.5-5.1); SODIUM LEVEL 133 MEQ/L (136-145)
== END ==
PROVIDERS: ATTEND Internal Medicine
DX: I50.9 Heart failure, unspecified (principal)

== ENCOUNTER → 2018-10-21 | Outpatient (REF) | payer MEDICARE, MEDICAID ==
[2018-10-21 10:33] LABS: CALCIUM LEVEL 9.4 MG/DL (8.8-10.2); CREATININE FOR GFR 1.01 MG/DL (0.55-1.30); GLOMERULAR FILTRATION RATE 55.7 (>32); POTASSIUM SERUM 3.7 MEQ/L (3.5-5.1)
== END ==
PROVIDERS: ATTEND Internal Medicine
DX: I50.9 Heart failure, unspecified (principal)

== ENCOUNTER → 2018-10-28 | Outpatient (REF) | payer MEDICARE, MEDICAID ==
[~2018-10-28] MED LIST changes: +ACET650S3 PR; +ALUMSUS2 PO; +ARTI99.0 OU; +DULC10SU2 PR; +ESOM0.1C PO; +FLEEENE4 PR; +GABA-1171 PO; +LASI20TA3 PO; +LIDO2JELLY TOP; +METO50TA7 PO; +MILK120011 PO; +OSEL75CA PO; +SLOWTAB2 PO; +TYLE325T5 PO
[2018-10-28 10:47] LABS: CALCIUM LEVEL 9.2 MG/DL (8.8-10.2); CREATININE FOR GFR 1.32 MG/DL (0.55-1.30); GLOMERULAR FILTRATION RATE 40.9 (>32); POTASSIUM SERUM 3.4 MEQ/L (3.5-5.1)
== END ==
PROVIDERS: ATTEND Nurse Practitioner Adult Health
DX: I50.9 Heart failure, unspecified (principal)

== ENCOUNTER → 2018-10-28 | Outpatient (REF) | payer MEDICARE, MEDICAID ==
[2018-10-28 11:30] LABS: HEMATOCRIT 45.3 % (36.0-47.0); HEMOGLOBIN 15.4 g/dl (12.0-15.5); MEAN CORPUSCULAR HEMOGLOBIN 33.6 pg (27.0-33.0); MEAN CORPUSCULAR VOLUME 98.9 fl (80.0-96.0); PLATELET COUNT, AUTOMATED 384 10^3/uL (150-450); RED BLOOD COUNT 4.58 10^6/uL (4.00-5.40); WHITE BLOOD COUNT 10.6 10^3/uL (4.0-10.0)
[2018-10-28 11:55] LABS: CALCIUM LEVEL 9.2 MG/DL (8.8-10.2); CREATININE FOR GFR 1.28 MG/DL (0.55-1.30); GLOMERULAR FILTRATION RATE 42.4 (>32); POTASSIUM SERUM 3.1 MEQ/L (3.5-5.1)
== END ==
PROVIDERS: ATTEND Internal Medicine
DX: R41.82 Altered mental status, unspecified (principal); I50.9 Heart failure, unspecified

== ENCOUNTER 2018-10-29 05:02 | Inpatient (IN) | payer MEDICARE, MEDICAID ==
[~2018-10-29] VITALS: Ht 152.4 cm; Wt 93.9 kg
[~2018-10-29 05:02] MED LIST changes: -/AMLO25TA PO; -/LEVE75TA PO; -/MOM400 PO; -/MOXI40TA PO; -/PANT40TA PO; -ACET50TA PO; -ACET650S3 PR; -ALUMSUS2 PO; -ARTI99.0 OU; +AVEL1TAB2 PO; -DOCU10ELUD PO; +DOCU5LIQ PO; -DULC10SU2 PR; -ESOM0.1C PO; -FLEEENE4 PR; -GABA-1171 PO; +HEPA500020 SQ; -HEPA50VL SQ; +KEPP1TAB2 PO; -LASI20TA3 PO; -LIDO2JELLY TOP; +MAPA500T17 PO; -METO50TA7 PO; +MILK10SU PO; -MILK120011 PO; +NORV2TAB PO; +ONDA-228 PO; -OSEL75CA PO; +OXYC1TAB23 PO; -PERCOCET PO; +PROT1TAB2 PO; -SLOWTAB2 PO; -TYLE325T5 PO; -ZOFR4TAB3 PO
[2018-10-29] MEDS ORDERED: MILK120011 PO (05:56)
[2018-10-29] MEDS ORDERED: ARTI99.0 OU (05:56)
[2018-10-29] MEDS ORDERED: ALUMSUS2 PO (05:56)
[2018-10-29] MEDS ORDERED: LIDO2JELLY TOP ×2 (05:56)
[2018-10-29] MEDS ORDERED: ACET650S3 PR (05:56)
[2018-10-29] MEDS ORDERED: OSEL75CA PO (05:56)
[2018-10-29] MEDS ORDERED: SLOWTAB2 PO (05:56)
[2018-10-29] MEDS ORDERED: TYLE325T5 PO (05:56)
[2018-10-29] MEDS ORDERED: GABA-1171 PO (05:56)
[2018-10-29] MEDS ORDERED: FLEEENE4 PR ×2 (05:56)
[2018-10-29] MEDS ORDERED: LASI20TA3 PO (05:56)
[2018-10-29] MEDS ORDERED: DULC10SU2 PR (05:56)
[2018-10-29] MEDS ORDERED: ESOM0.1C PO (05:56)
[2018-10-29] MEDS ORDERED: METO50TA7 PO (05:56)
[2018-10-29 06:17] LABS: BASO # 0.1 10^3/uL (0.0-0.2); BASO % 0.8 % (0.0-1.0); EOS # 0.4 10^3/uL (0.0-0.50); EOS % 3.2 % (0.0-3.0); HEMATOCRIT 47.6 % (36.0-47.0); HEMOGLOBIN 16.1 g/dl (12.0-15.5); LYMPH # 2.6 10^3/uL (1.5-4.5); LYMPH % 23.8 % (24.0-44.0); MEAN CORPUSCULAR HEMOGLOBIN 33.9 pg (27.0-33.0); MEAN CORPUSCULAR HGB CONC 33.8 g/dl (32.0-36.5); MEAN CORPUSCULAR VOLUME 100.2 fl (80.0-96.0); MONO # 1.3 10^3/uL (0.0-0.8); MONO % 11.7 % (0.0-5.0); NEUTROPHILS # 6.6 10^3/uL (1.8-7.7); PLATELET COUNT, AUTOMATED 403 10^3/uL (150-450); RED BLOOD COUNT 4.75 10^6/uL (4.00-5.40); WHITE BLOOD COUNT 10.9 10^3/uL (4.0-10.0)
[2018-10-29 06:37] LABS: BLOOD UREA NITROGEN 61 MG/DL (7-18); CALCIUM LEVEL 9.8 MG/DL (8.8-10.2); CARBON DIOXIDE LEVEL 36 MEQ/L (21-32); CHLORIDE LEVEL 88 MEQ/L (98-107); CPK CREATINE PHOSPHOKINASE 45 U/L (26-192); CREATININE FOR GFR 1.31 MG/DL (0.55-1.30); GLOMERULAR FILTRATION RATE 41.3 (>32); GLUCOSE, FASTING 119 MG/DL (70-100); MB/CK RELATIVE INDEX 2.22 (< OR =4); POTASSIUM SERUM 3.3 MEQ/L (3.5-5.1); SODIUM LEVEL 134 MEQ/L (136-145); THYROID STIMULATING HORMONE 0.598 uIU/ML (0.358-3.740); TROPONIN I < 0.02 NG/ML (< 0.10)
[2018-10-29] MEDS ORDERED: NS 500 ML IV ONE (07:30)
--- NOTE | 2018-10-29 07:37 | REPVR ---
EXAM: CT Head Without Contrast EXAM DATE/TIME: 10/29/2018 6:12 AM CLINICAL HISTORY: 82 years old, female; Signs and symptoms; Altered mental status/memory loss; Confusion or disorientation; Additional info: TIA TECHNIQUE: Imaging protocol: Axial computed tomography images of the head/brain without contrast. Radiation optimization: All CT scans at this facility use at least one of these dose optimization techniques: automated exposure control; mA and/or kV adjustment per patient size (includes targeted exams where dose is matched to clinical indication); or iterative reconstruction. COMPARISON: CT Head without contrast 12/26/2012 9:20 AM The report from this study was not available for review at the time of this interpretation. FINDINGS: Brain: No acute large vessel territorial infarct, intracranial hemorrhage, mass effect, or herniation is noted. There is a 3.9 cm x 3.3 cm cystic lesion along the anterior aspect of the interhemispheric fissure extending between the frontal horns of both lateral ventricles with peripheral calcifications, which is similar in appearance compared to the prior CT scan on 12/26/2012. There is a 2.6 cm x 2 cm hyperdense lesion containing multiple calcifications along the right posterior margin of this lesion in the posterior inferior aspect of the right frontal lobe, which is also unchanged compared to the prior CT scan on 12/26/2012. There is chronic encephalomalacia involving the right frontal lobe. Brainstem: Unremarkable. Midline shift: There is no midline shift. Ventricles: The ventricles are moderately dilated in proportion to the sulci, which is compatible with moderate generalized cerebral volume loss that is similar in appearance compared to the prior CT scan on 12/26/2012. Bones/joints: Postoperative changes are noted from a right frontal craniotomy. No acute fracture. No bony destructive changes. Sinuses: Visualized sinuses are unremarkable. No acute sinusitis. Mastoid air cells: Visualized mastoid air cells are unremarkable. No mastoid effusion. Soft tissues: Unremarkable. Vasculature: There are atherosclerotic calcifications of the intracranial portion of the vertebral arteries, the basilar artery, and both internal carotid arteries. IMPRESSION: 1. No CT evidence for an acute intracranial process. No significant change compared to the prior CT scan on 12/26/2012. 2. Cystic lesion along the anterior aspect of the interhemispheric fissure extending between the frontal horns of both lateral ventricles with peripheral calcifications, which is similar in appearance compared to the prior CT scan on 12/26/2012. Electronically signed by: Cheikh Moore On 10/29/2018 07:37:04 AM
--- NOTE | 2018-10-29 08:15 | REP ---
Chest x-ray: Single view. History: TIA. Comparison study: March 14, 2018. Findings: Oxygen delivery tubing and EKG electrodes are seen. There is linear density at the right base consistent with plate-like atelectasis today. Pleural angles are sharp. Lung valdivia are otherwise clear. Heart is enlarged as before. The lungs are exposed at a relatively low level of inspiration unchanged. Impression: Right base discoid atelectasis. Mild cardiomegaly. Otherwise no acute disease. Electronically Signed by Adrian Calvo MD 10/29/2018 09:12 A
[2018-10-29] MEDS ORDERED: ASPIRIN ENTERIC 325 MG TAB PO SCH (09:00)
[2018-10-29] MEDS ORDERED: LIDOCAINE 2% JELLY 30 ML TOP PRN (09:45)
[2018-10-29] MEDS ORDERED: ACETAMINOPHEN 650 MG SUPP PR PRN (09:45)
[2018-10-29] MEDS ORDERED: POLYVINYL ALCOHOL OPHTH SOLN 15 ML(LIQUITEARS) OU PRN (09:45)
[2018-10-29] MEDS ORDERED: BISACODYL 10 MG SUPP PR PRN (09:45)
[2018-10-29] MEDS ORDERED: cefTRIAXone SOD 1 GM in D5W MINI-BAG PLUS 50 ML IV ONE (10:00)
[2018-10-29] MEDS: SENOKOT S TAB PO SCH ×2 (10:31→21:09)
[2018-10-29] MEDS: levETIRAcetam 250MG TABLET (KEPPRA) PO SCH ×2 (10:31→21:09)
[2018-10-29] MEDS: DOCUSATE SODIUM 100 MG CAP PO SCH ×2 (10:31→21:09)
[2018-10-29 12:30] VITALS: BP 138/83
[2018-10-29] MEDS ORDERED: POTASSIUM CHLORIDE 10 MEQ SR TABLET PO ONE (13:30)
[2018-10-29] MEDS ORDERED: SLF 3 ML SYR IV PRN (13:45)
[2018-10-29] MEDS: PRIMIDONE 50 MG TAB PO SCH ×2 (13:49→21:10)
[2018-10-29] MEDS ORDERED: HEPARIN DRIP 25,000 UNITS in APPROPRIATE DILUENT 1 EA IV SCH (13:54)
[2018-10-29] MEDS ORDERED: HEPARIN SOD (PORCINE) 5000 UNITS/ML VIAL IV PRN (14:00)
[2018-10-29] MEDS: NS 1,200 ML IV SCH ×2 (14:30→14:31)
[2018-10-29] MEDS: SLF 3 ML SYR IV SCH ×2 (14:31→21:10)
[2018-10-29 15:01] LABS: ALBUMIN 3.4 GM/DL (3.2-5.2); BILIRUBIN,DIRECT 0.2 MG/DL (0.0-0.2); BILIRUBIN,TOTAL 0.4 MG/DL (0.2-1.0); TOTAL PROTEIN 7.6 GM/DL (6.4-8.2)
[2018-10-29 16:00] VITALS: BP 135/79
--- NOTE | 2018-10-29 18:43 | HPEPDOC ---
General Date of Admission Oct 29, 2018 at 09:39 Chief Complaint The patient is a 82-year-old female admitted with a reason for visit of Onesimo napoles. History of Present Illness 82-year-old female with past medical history of seizure disorder, osteoarthritis, peripheral neuropathy, chronic diastolic congestive heart failure, recurrent urinary tract infections, and TIA presented to the ER with a chief complaint of increased lethargy, weakness, and malaise. According to the patient's daughters who were at the bedside, the patient has been increasingly fatigued and less responsive since the weekend. They report that the patient has had several similar incidents in the past when she had a urinary tract infection. There were no reports of fevers, chills, chest pain, palpitations, abdominal pain, numbness/tingling, acute focal weakness, or any nausea/vomiting/diarrhea. In the ER, the patient was noted to be dehydrated and was noted to have an acute kidney injury. The patient has been empirically started on antibiotic therapy for a possible urinary tract infection. In addition, the patient was also noted to be in new onset atrial fibrillation with a rapid ventricular rate. She will be admitted to the hospitalist service for further evaluation and management. Home Medications Scheduled (Esomeprazole Magnesium) 20 Mg Cap, 20 MG PO DAILY, (Reported) Acetaminophen (Acetaminophen Extra Stren) 500 Mg Tab, 500 MG PO TID, (Reported) 0900, 1300, 1900 Aspirin (Aspirin EC) 325 Mg Tabec, 325 MG PO DAILY, (Reported) Docusate Sod/Senna (Senna S 8.6-50 mg) 1 Tab Tab, 2 TAB PO BID, (Reported) Docusate Sodium (Colace) 100 Mg Cap, 100 MG PO BID, (Reported) Furosemide (Lasix) 20 Mg Tab, 100 MG PO DAILY, (Reported) Gabapentin (Gabapentin) 100 Mg Cap, 100 MG PO QHS, (Reported) Levetiracetam (Keppra) 500 Mg Tab, 500 MG PO BID, (Reported) Lidocaine HCl (Lidocaine HCl 2% Jelly) 1 Dose/30 Ml Jel, 1 DOSE TOP BID, (Reported) APPLIES TO LEFT FOOT FOR PAIN Magnesium Chloride (Slow-Mag 71.5-119 mg) 1 Tab Tab, 2 TAB PO DAILY, (Reported) Metoprolol Tartrate (Metoprolol Tartrate) 50 Mg Tab, 50 MG PO DAILY, (Reported) Nortriptyline Hcl (Pamelor) 10 Mg Cap, 20 MG PO BID, (Reported) Oseltamivir Phosphate (Tamiflu) 75 Mg Cap, 75 MG PO QPM, (Reported) TAKES AT 1900 FOR 5 DAYS; STARTED 10/25/18, LAST DOSE 10/29/18 Polyethylene Glycol (Miralax) 1 Pow Pow, 17 GM PO DAILY, (Reported) Primidone (Primidone) 50 Mg Tab, 150 MG PO BID, (Reported) Sodium Phosphate/Biphosphate (Fleet Enema 7-19 gm/118Ml) 1 Lesvia Lesvia, [address] DAILY, (Reported) 1 TIME PER DAY EVERY 14 DAYS AT 1400 Spironolactone (Aldactone) 25 Mg Tab, 25 MG PO DAILY, (Reported) Scheduled PRN (Aluminum/Magnesium/Simeth 200-200-20 mg/5Ml) 1 Ирина Ирина, 30 ML PO Q4H PRN for GI UPSET, (Reported) Acetaminophen (Tylenol) 325 Mg Tab, 650 MG PO Q4H PRN for MILD PAIN (PS 1-4), (Reported) Acetaminophen (Acetaminophen) 650 Mg Sup, [address] Q4H PRN for PAIN / FEVER, (Reported) Artificial Tears (Artificial Tears) 1.4 % Marina, 1 DROP OU Q4H PRN for DRY EYES, (Reported) Bisacodyl (Dulcolax) 10 Mg Sup, [address] DAILY PRN for CONSTIPATION, (Reported) Lidocaine HCl (Lidocaine HCl 2% Jelly) 1 Dose/30 Ml Jel, 1 DOSE TOP Q4H PRN for NEUROPATHIC PAIN, (Reported) USES ON LEFT FOOT/ ANKLE Milk Of Magnesia (Milk of Magnesia) 1,200 Mg/15 Ml Ирина, 30 ML PO DAILY PRN for CONSTIPATION, (Reported) Sodium Phosphate/Biphosphate (Fleet Enema 7-19 gm/118Ml) 1 Lesvia Lesvia, [address] DAILY PRN for CONSTIPATION, (Reported) Allergies Coded Allergies: prednisone (Verified Allergy, Unknown, 10/29/18) Past Medical History Medical History As noted above. Social History * Smoker: Denies Alcohol: Denies Drugs: denies Review of Systems Other systems 10 point review of systems negative unless otherwise specified in the HPI. Physical Examination General Exam: Positive: Cooperative, No Acute Distress, Other (patient oriented to place, birthdate, daughter's name but not year or situation) ENT Exam: Positive: Atraumatic, Mucous membr. moist/pink Chest Exam: Positive: Diminished Heart Exam: Positive: Tachycardic, Normal S1, Normal S2 Telemetry: Positive: Sinus, Tachycardia Abdomen Exam: Positive: Soft; Negative: Tenderness Extremity Exam: Negative: Tenderness, Swelling Neuro Exam: Positive: Strength at 5/5 X4 ext Vital Signs Vital Signs Date Time Temp Pulse Resp B/P (MAP) Pulse Ox O2 Delivery O2 Flow Rate FiO2 10/29/18 16:00 97.7 98 18 135/79 (97) 99 2.0 10/29/18 11:30 Nasal Cannula Laboratory Data Labs 24H Laboratory Tests 2 10/29/18 05:40: Immature Granulocyte % (Auto) 0.5, White Blood Count 10.9H, Red Blood Count 4.75, Hemoglobin 16.1H, Hematocrit 47.6H, Mean Corpuscular Volume 100.2H, Mean Corpuscular Hemoglobin 33.9H, Mean Corpuscular Hemoglobin Concent 33.8, Red Cell Distribution Width 12.6, Platelet Count 403, Neutrophils (%) (Auto) 60.0, Lymphocytes (%) (Auto) 23.8L, Monocytes (%) (Auto) 11.7H, Eosinophils (%) (Auto) 3.2H, Basophils (%) (Auto) 0.8, Neutrophils # (Auto) 6.6, Lymphocytes # (Auto) 2.6, Monocytes # (Auto) 1.3H, Eosinophils # (Auto) 0.4, Basophils # (Auto) 0.1, Nucleated Red Blood Cells % (auto) 0.0, Anion Gap 10, Glomerular Filtration Rate 41.3, Blood Urea Nitrogen 61H, Creatinine 1.31H, Sodium Level 134L, Potassium Level 3.3L, Chloride Level 88L, Carbon Dioxide Level 36H, Calcium Level 9.8, Total Creatine Kinase 45, Creatine Kinase MB 1.0, Creatine Kinase MB Relative Index 2.22, Troponin I < 0.02, Thyroid Stimulating Hormone (TSH) 0.598 10/29/18 14:19: Activated Partial Thromboplast Time 32.4, Aspartate Amino Transf (AST/SGOT) 30, Alanine Aminotransferase (ALT/SGPT) 21, Alkaline Phosphatase 108, Total Bilirubin 0.4, Direct Bilirubin 0.2, Ammonia 11, Total Protein 7.6, Albumin 3.4, Albumin/Globulin Ratio 0.81L CBC/BMP Laboratory Tests 10/29/18 05:40 Red Blood Count 4.75, Mean Corpuscular Volume 100.2 H, Mean Corpuscular Hemoglobin 33.9 H, Mean Corpuscular Hemoglobin Concent 33.8, Red Cell Distribution Width 12.6, Neutrophils (%) (Auto) 60.0, Lymphocytes (%) (Auto) 23.8 L, Monocytes (%) (Auto) 11.7 H, Eosinophils (%) (Auto) 3.2 H, Basophils (%) (Auto) 0.8, Neutrophils # (Auto) 6.6, Lymphocytes # (Auto) 2.6, Monocytes # (Auto) 1.3 H, Eosinophils # (Auto) 0.4, Basophils # (Auto) 0.1, Calcium Level 9.8, Total Creatine Kinase 45 Microbiology Microbiology 10/29/18 Respiratory Virus Panel (PCR) ([facility]) - Final, Complete Plan / VTE VTE Prophylaxis Ordered?: Yes Plan Plan Acute Kidney Injury 2/2 Intravascular Depletion, Dehydration while on Diuretic Therapy Serum Cr noted to be 1.31 (Baseline Cr is 0.6-0.8) We will hold Nephrotoxins Renal U/S ordered Gentle IVF Hydration We will cont to monitor New-Onset Atrial Fibrillation Patient converted back to NSR 2D ECHO ordered CHADs-VASc score of 4--risks, benefits, and alternative options to AC therapy discussed at length with the patient's daughter at the bedside. She has verbalized understanding of the same, and is agreeable to starting anticoagulation therapy. We will start the patient on a Heparin gtt for now Lethargy, Weakness 2/2 Dehydration, possibly UTI UA with reflex to cultures pending Patient empirically started on Rocephin No acute focal neurological deficits observed PT ordered for functional optimization Diastolic congestive heart failure 2D ECHO ordered Hold diuretic therapy 2/2 LYLY Gentle IVF Hydration ordered Hx of Seizure Disorders Last seizure was apparently 10+ years ago according to family Cont Keppra, Primidone Cystic Lesion on CT Head CT Head notable for Cystic lesion along the anterior aspect of the interhemispheric fissure extending between the frontal horns of both lateral ventricles with peripheral calcifications, which is similar in appearance compared to the prior CT scan on 12/26/2012. Follow up as outpatient DVT Prophylaxis Heparin SC Code Status: DNR/DNI MARIANNA MORAN MD Oct 29, 2018 18:43
--- NOTE | 2018-10-29 19:32 | REP ---
Clinical: Acute renal sufficiency. Technique: Real time soni scale ultrasound examination using curved array transducer. Findings: The right kidney is normal in reniform shape, size and echogenicity measuring 10.4 x 4.9 x 5.0 cm and includes multiple nonobstructing calculi measuring between 1.0 cm and 2.5 cm. No associated hydronephrosis, mass or perinephric stranding appreciated. The left kidney is normal in reniform shape, size, and echogenicity measuring 10.3 x 4.3 x 4.9 cm and without nephrolithiasis, hydronephrosis, cystic or mass lesion or perinephric stranding. Bladder is collapsed. Impression: Right-sided nephrolithiasis with calculi measuring possibly up to 2.5 cm. No hydronephrosis. Normal left kidney. Electronically Signed by Bart Cunningham MD 10/29/2018 07:23 P
[2018-10-29 20:00] VITALS: BP 124/88
[2018-10-29] MEDS: NYSTATIN 100,000 UNITS/GM TOPICAL PWD 15 GM TOP SCH (21:08)
[2018-10-29] MEDS: METOPROLOL TART 50 MG TAB PO SCH (21:09)
--- NOTE | 2018-10-29 21:31 | ECHO ---
DATE OF PROCEDURE: 10/29/2018 REFERRING PHYSICIAN: Boo Dowling MD INDICATION: Heart failure, unspecified. HEIGHT: 152 cm WEIGHT: 91.3 kg 2D MEASUREMENTS: Inferior vena cava: 1.1 cm Aortic annulus: 2.2 cm Aortic root: 3.2 cm DOPPLER MEASUREMENTS: Aortic valve velocity: 123 cm/s LVOT velocity: 106 cm/s LVOT VTI: 16.3 cm Mitral E velocity: 57.7 cm/s Mitral A velocity: 84.4 cm/s Pulmonary artery systolic pressure: 49 mmHg by pulmonary artery acceleration time method. DESCRIPTION: Rhythm appeared to be sinus. This is a technically difficult echocardiogram. Only apical and subcostal views were available. No parasternal views. CONCLUSIONS: 1. Normal overall left ventricle systolic function. Left ventricle appeared normal in size. Left ventricle ejection fraction 70% by visual estimate. Grade 1 left ventricle (LV) diastolic dysfunction. 2. Normal right ventricle size and systolic function. 3. Mild aortic valve sclerosis. 4. Suggestive of moderate elevation of pulmonary artery systolic pressure. 5. Small pericardial effusion measuring 0.6 cm over the right ventricle free wall laterally and extending thinly over the right atrial free wall. No diastolic chamber collapse. 6. Technically difficult echocardiogram.
--- NOTE | 2018-10-29 22:06 | ECGEPIP ---
Stationary ECG Study [facility] - ED Test Date: 2018-10-29 Pat Name: YUILET VELASQUEZ Department: Room: - Gender: F Core Sucker: : 1935 Requested By: Mannie Plata Order Number: [id number] Reading MD: Mannie Cheung Measurements Intervals [place] Rate: 145 P: SD: 0 QRS: -8 QRSD: 96 T: 69 QT: 290 QTc: 451 Interpretive Statements ATRIAL FIBRILLATION WITH RAPID VENTRICULAR RESPONSE NONSPECIFIC ST & T-WAVE ABNORMALITY RHYTHM/RATE CHANGE COMPARED TO 12/04/14 Electronically Signed On 10-29-2018 22:05:58 EDT by Mannie Cheung
[2018-10-30] VITALS: BP 128/84
[2018-10-30 04:00] VITALS: BP 109/61
[2018-10-30 04:48] LABS: BASO # 0.1 10^3/uL (0.0-0.2); BASO % 0.8 % (0.0-1.0); EOS # 0.5 10^3/uL (0.0-0.50); EOS % 4.8 % (0.0-3.0); HEMATOCRIT 42.4 % (36.0-47.0); HEMOGLOBIN 14.2 g/dl (12.0-15.5); LYMPH # 1.6 10^3/uL (1.5-4.5); LYMPH % 14.5 % (24.0-44.0); MEAN CORPUSCULAR HGB CONC 33.5 g/dl (32.0-36.5); MEAN CORPUSCULAR VOLUME 101.4 fl (80.0-96.0); MONO # 0.9 10^3/uL (0.0-0.8); MONO % 8.3 % (0.0-5.0); NEUTROPHILS # 7.8 10^3/uL (1.8-7.7); NEUTROPHILS % 71.2 % (36.0-66.0); PLATELET COUNT, AUTOMATED 330 10^3/uL (150-450); RED BLOOD COUNT 4.18 10^6/uL (4.00-5.40); WHITE BLOOD COUNT 10.9 10^3/uL (4.0-10.0)
[2018-10-30 05:12] LABS: ALBUMIN 3.2 GM/DL (3.2-5.2); ALT/SGPT 19 U/L (12-78); BILIRUBIN,TOTAL 0.4 MG/DL (0.2-1.0); BLOOD UREA NITROGEN 49 MG/DL (7-18); CALCIUM LEVEL 8.7 MG/DL (8.8-10.2); CARBON DIOXIDE LEVEL 35 MEQ/L (21-32); CHLORIDE LEVEL 92 MEQ/L (98-107); CREATININE FOR GFR 0.82 MG/DL (0.55-1.30); GLOMERULAR FILTRATION RATE > 60.0 (>32); GLUCOSE, FASTING 98 MG/DL (70-100); MAGNESIUM LEVEL 2.2 MG/DL (1.8-2.4); POTASSIUM SERUM 3.1 MEQ/L (3.5-5.1); SODIUM LEVEL 135 MEQ/L (136-145)
[2018-10-30] MEDS: SLF 3 ML SYR IV SCH ×3 (05:23→21:11)
[2018-10-30] MEDS ORDERED: POTASSIUM CHLORIDE 10 MEQ SR TABLET PO ONE (07:00)
[2018-10-30 08:00] VITALS: BP 118/57
[2018-10-30] MEDS: ASPIRIN 81 MG ENTERIC TAB PO SCH (08:48)
[2018-10-30] MEDS: levETIRAcetam 250MG TABLET (KEPPRA) PO SCH ×2 (08:49→21:11)
[2018-10-30] MEDS: SENOKOT S TAB PO SCH ×2 (08:49→21:11)
[2018-10-30] MEDS: DOCUSATE SODIUM 100 MG CAP PO SCH ×2 (08:50→21:10)
[2018-10-30] MEDS: METOPROLOL TART 50 MG TAB PO SCH (08:50)
[2018-10-30] MEDS: NYSTATIN 100,000 UNITS/GM TOPICAL PWD 15 GM TOP SCH ×2 (08:51→21:12)
[2018-10-30] MEDS ORDERED: METOPROLOL TART 50 MG TAB PO SCH (09:00)
[2018-10-30] MEDS ORDERED: ASPIRIN ENTERIC 325 MG TAB PO SCH (09:00)
[2018-10-30] MEDS: PRIMIDONE 50 MG TAB PO SCH ×2 (10:17→21:10)
[2018-10-30] MEDS: cefTRIAXone SOD 1 GM in D5W MINI-BAG PLUS 50 ML IV SCH (10:18)
[2018-10-30 12:00] VITALS: BP 123/81
--- NOTE | 2018-10-30 15:19 | IPNPDOC ---
Subjective Date Seen The patient was seen on 10/30/18. Subjective Chief Complaint/HPI Patient seen and examined at the bedside. She reports feeling better, and is oriented to person, place, date and is following commands. However, remains intermittently confused. Objective Physical Examination General Exam: Positive: Cooperative, No Acute Distress, Other (patient oriented to place, birthdate, daughter's name but not year or situation) ENT Exam: Positive: Atraumatic, Mucous membr. moist/pink Chest Exam: Positive: Diminished Heart Exam: Positive: Rate Normal, Normal S1, Normal S2 Telemetry: Positive: Sinus Abdomen Exam: Positive: Soft; Negative: Tenderness Extremity Exam: Negative: Tenderness, Swelling Neuro Exam: Positive: Strength at 5/5 X4 ext Assessment /Plan Plan/VTE VTE Prophylaxis Ordered?: Yes Plan Acute Kidney Injury 2/2 Intravascular Depletion, Dehydration while on Diuretic Therapy Serum Cr back to baseline Renal U/S with no Hydronephrosis noted s/p IVF Hydration We will cont to monitor New-Onset Atrial Fibrillation Patient converted back to NSR 2D ECHO notable for preserved LV ejection fraction, Grade 1 diastolic dysfunction CHADs-VASc score of 4--risks, benefits, and alternative options to AC therapy discussed at length with the patient's daughter at the bedside. She has verbalized understanding of the same, and is agreeable to starting anticoagulation therapy. We will transition the patient from Heparin gtt to Eliquis Lethargy, Weakness 2/2 Dehydration, possibly UTI UA with reflex to cultures pending Patient empirically started on Rocephin No acute focal neurological deficits observed PT ordered for functional optimization Diastolic congestive heart failure, compensated 2D ECHO noted Hx of Seizure Disorders Last seizure was apparently 10+ years ago according to family Cont Nikia, Primidone Cystic Lesion on CT Head CT Head notable for Cystic lesion along the anterior aspect of the interhemispheric fissure extending between the frontal horns of both lateral ventricles with peripheral calcifications, which is similar in appearance compared to the prior CT scan on 12/26/2012. MRI of the Brain ordered for follow up Follow up as outpatient DVT Prophylaxis Heparin SC Code Status: DNR/DNI VS, I&O, 24H, Fishbone Vital Signs/I&O Vital Signs Date Time Temp Pulse Resp B/P (MAP) Pulse Ox O2 Delivery O2 Flow Rate FiO2 10/30/18 12:00 2.0 10/30/18 12:00 96.6 89 18 123/81 (95) 99 10/29/18 11:30 Nasal Cannula I&O- Last 24 Hours up to 6 AM 10/30/18 06:00 Intake Total 710 ml Output Total 0 ml Balance 710 ml Laboratory Data 24H LABS Laboratory Tests 2 10/29/18 21:56: Activated Partial Thromboplast Time 73.3H 10/30/18 04:14: Activated Partial Thromboplast Time 153.2*H, Immature Granulocyte % (Auto) 0.4, White Blood Count 10.9H, Red Blood Count 4.18, Hemoglobin 14.2, Hematocrit 42.4, Mean Corpuscular Volume 101.4H, Mean Corpuscular Hemoglobin 34.0H, Mean Corpuscular Hemoglobin Concent 33.5, Red Cell Distribution Width 12.5, Platelet Count 330, Neutrophils (%) (Auto) 71.2H, Lymphocytes (%) (Auto) 14.5L, Monocytes (%) (Auto) 8.3H, Eosinophils (%) (Auto) 4.8H, Basophils (%) (Auto) 0.8, Neutrophils # (Auto) 7.8H, Lymphocytes # (Auto) 1.6, Monocytes # (Auto) 0.9H, Eosinophils # (Auto) 0.5, Basophils # (Auto) 0.1, Nucleated Red Blood Cells % (auto) 0.0, Anion Gap 8, Glomerular Filtration Rate > 60.0, Blood Urea Nitrogen 49H, Creatinine 0.82, Sodium Level 135L, Potassium Level 3.1L, Chloride Level 92L, Carbon Dioxide Level 35H, Calcium Level 8.7L, Aspartate Amino Transf (AST/SGOT) 25, Alanine Aminotransferase (ALT/SGPT) 19, Alkaline Phosphatase 101, Total Bilirubin 0.4, Total Protein 7.0, Albumin 3.2, Magnesium Level 2.2, Albumin/Globulin Ratio 0.84L 10/30/18 06:41: Activated Partial Thromboplast Time 123.6*H CBC/BMP Laboratory Tests 10/30/18 04:14 Red Blood Count 4.18, Mean Corpuscular Volume 101.4 H, Mean Corpuscular Hemoglobin 34.0 H, Mean Corpuscular Hemoglobin Concent 33.5, Red Cell Distribution Width 12.5, Neutrophils (%) (Auto) 71.2 H, Lymphocytes (%) (Auto) 14.5 L, Monocytes (%) (Auto) 8.3 H, Eosinophils (%) (Auto) 4.8 H, Basophils (%) (Auto) 0.8, Neutrophils # (Auto) 7.8 H, Lymphocytes # (Auto) 1.6, Monocytes # (Auto) 0.9 H, Eosinophils # (Auto) 0.5, Basophils # (Auto) 0.1, Calcium Level 8.7 L, Aspartate Amino Transf (AST/SGOT) 25, Alanine Aminotransferase (ALT/SGPT) 19, Alkaline Phosphatase 101, Total Bilirubin 0.4, Total Protein 7.0, Albumin 3. 2 Microbiology Microbiology 10/29/18 Respiratory Virus Panel (PCR) ([facility]) - Final, Complete MARIANNA MORAN MD Oct 30, 2018 15:19
[2018-10-30 16:00] VITALS: BP 130/67
[2018-10-30] MEDS: METOPROLOL 5 MG/5 ML VIAL IV SCH ×3 (17:36→18:28)
[2018-10-30] MEDS ORDERED: NS 250 ML IV ONE (18:45)
[2018-10-30 20:00] VITALS: BP 120/81
[2018-10-30] MEDS ORDERED: METOPROLOL 5 MG/5 ML VIAL IV STA (22:24)
--- NOTE | 2018-10-30 22:59 | REPVR ---
EXAM: MR Head Without Contrast EXAM DATE/TIME: 10/30/2018 9:58 PM CLINICAL HISTORY: 82 years old, female; Signs and symptoms; Speech disturbance; Slurred speech; Prior surgery; Surgery date: 6+ months; Surgery type: HX of frontal craniotomy and tumor removal TECHNIQUE: Imaging protocol: MR of the head without contrast. COMPARISON: MRI-Brain without Contrast 12/21/2012 5:06 PM FINDINGS: Brain: Increase signal on diffusion-weighted imaging most likely artifact related to the adjacent magnetic susceptibility artifact. Cystic focus in the anterior aspect of the interhemispheric fissure extending to the frontal bones of both lateral ventricles is noted on prior CT. Multiple foci of T2 lengthening are demonstrated in the subcortical, periventricular and centrum semiovale white matter consistent with age-related small vessel gliosis. Ventricles: Normal. No ventriculomegaly. Bones/joints: Extensive magnetic susceptibility artifact status post right frontal craniotomy for brain tumor. Soft tissues: Normal. Sinuses: Normal as visualized. No acute sinusitis. Mastoid air cells: Normal as visualized. No mastoid effusion. Orbits: Unremarkable. IMPRESSION: Multiple foci of T2 lengthening are demonstrated in the subcortical, periventricular and centrum semiovale white matter consistent with age-related small vessel gliosis. Stable appearance of the previously demonstrated cystic focus in the anterior hemispheric fissure as described above. Electronically signed by: Bucky Zheng On 10/30/2018 22:58:39 PM
[2018-10-31] VITALS: BP 120/67
[2018-10-31 04:00] VITALS: BP 111/67
[2018-10-31] MEDS: SLF 3 ML SYR IV SCH ×3 (05:42→22:00)
[2018-10-31 05:44] LABS: BASO # 0.1 10^3/uL (0.0-0.2); BASO % 1.1 % (0.0-1.0); EOS # 0.5 10^3/uL (0.0-0.50); EOS % 5.4 % (0.0-3.0); HEMATOCRIT 40.5 % (36.0-47.0); HEMOGLOBIN 13.6 g/dl (12.0-15.5); LYMPH # 1.9 10^3/uL (1.5-4.5); LYMPH % 22.4 % (24.0-44.0); MEAN CORPUSCULAR HEMOGLOBIN 33.3 pg (27.0-33.0); MEAN CORPUSCULAR HGB CONC 33.6 g/dl (32.0-36.5); MEAN CORPUSCULAR VOLUME 99.3 fl (80.0-96.0); MONO # 0.9 10^3/uL (0.0-0.8); MONO % 11.2 % (0.0-5.0); NEUTROPHILS % 59.5 % (36.0-66.0); PLATELET COUNT, AUTOMATED 340 10^3/uL (150-450); RED BLOOD COUNT 4.08 10^6/uL (4.00-5.40); WHITE BLOOD COUNT 8.4 10^3/uL (4.0-10.0)
[2018-10-31 06:09] LABS: ALT/SGPT 18 U/L (12-78); BILIRUBIN,TOTAL 0.4 MG/DL (0.2-1.0); BLOOD UREA NITROGEN 24 MG/DL (7-18); CALCIUM LEVEL 8.9 MG/DL (8.8-10.2); CARBON DIOXIDE LEVEL 33 MEQ/L (21-32); CHLORIDE LEVEL 95 MEQ/L (98-107); CREATININE FOR GFR 0.64 MG/DL (0.55-1.30); GLOMERULAR FILTRATION RATE > 60.0 (>32); GLUCOSE, FASTING 93 MG/DL (70-100); MAGNESIUM LEVEL 1.9 MG/DL (1.8-2.4); POTASSIUM SERUM 3.6 MEQ/L (3.5-5.1); SODIUM LEVEL 132 MEQ/L (136-145); TOTAL PROTEIN 7.3 GM/DL (6.4-8.2)
[2018-10-31 08:00] VITALS: BP 107/74
[2018-10-31] MEDS: PRIMIDONE 50 MG TAB PO SCH ×2 (08:42→20:14)
[2018-10-31] MEDS: levETIRAcetam 250MG TABLET (KEPPRA) PO SCH ×2 (08:42→20:14)
[2018-10-31] MEDS: ASPIRIN 81 MG ENTERIC TAB PO SCH (08:42)
[2018-10-31] MEDS: METOPROLOL TART 50 MG TAB PO SCH (08:43)
[2018-10-31] MEDS: APIXABAN 5 MG TAB (ELIQUIS) PO SCH ×2 (08:43→20:14)
[2018-10-31] MEDS: DOCUSATE SODIUM 100 MG CAP PO SCH ×2 (08:45→20:14)
[2018-10-31] MEDS: SENOKOT S TAB PO SCH ×2 (08:45→20:14)
[2018-10-31] MEDS: NYSTATIN 100,000 UNITS/GM TOPICAL PWD 15 GM TOP SCH ×2 (08:45→20:15)
[2018-10-31] MEDS: cefTRIAXone SOD 1 GM in D5W MINI-BAG PLUS 50 ML IV SCH (11:01)
[2018-10-31 12:00] VITALS: BP 100/61
--- NOTE | 2018-10-31 12:44 | IPNPDOC ---
Subjective Date Seen The patient was seen on 10/31/18. Subjective Chief Complaint/HPI Patient seen and examined at the bedside. Reports that she is feeling better, and denies any acute overnight complaints of chest pain, palpitations, or shortness of breath. Patient noted to have episodes of atrial fibrillation with rapid ventricular rate last night which improved with beta abdirashid therapy. Objective Physical Examination General Exam: Positive: Alert, Cooperative, No Acute Distress, Other (patient oriented to place, birthdate, situation but not year or president) ENT Exam: Positive: Atraumatic, Mucous membr. moist/pink Chest Exam: Positive: Diminished Heart Exam: Positive: Rate Normal, Normal S1, Normal S2 Telemetry: Positive: Sinus Abdomen Exam: Positive: Soft; Negative: Tenderness Extremity Exam: Negative: Tenderness, Swelling Neuro Exam: Positive: Strength at 5/5 X4 ext Assessment /Plan Plan/VTE VTE Prophylaxis Ordered?: Yes Plan Acute Kidney Injury 2/2 Intravascular Depletion, Dehydration while on Diuretic Therapy Serum Cr back to baseline Renal U/S with no Hydronephrosis noted s/p IVF Hydration We will cont to monitor New-Onset Atrial Fibrillation Patient has been fluctuating between NSR and A-Fib with RVR 2D ECHO notable for preserved LV ejection fraction, Grade 1 diastolic dysfunction CHADs-VASc score of 4--risks, benefits, and alternative options to AC therapy discussed at length with the patient's daughter at the bedside. She has v erbalized understanding of the same, and is agreeable to starting anticoagulation therapy. Patient on Eliquis Lethargy, Weakness 2/2 Dehydration, possibly UTI UA with reflex to cultures pending Patient empirically started on Rocephin No acute focal neurological deficits observed PT ordered for functional optimization Diastolic congestive heart failure, compensated 2D ECHO noted Hx of Seizure Disorders Last seizure was apparently 10+ years ago according to family Cont Keppra, Primidone Cystic Lesion on CT Head CT Head notable for Cystic lesion along the anterior aspect of the interhemispheric fissure extending between the frontal horns of both lateral ventricles with peripheral calcifications, which is similar in appearance compared to the prior CT scan on 12/26/2012. MRI of the Brain with no acute findings Follow up as outpatient DVT Prophylaxis Heparin SC Code Status: DNR/DNI VS, I&O, 24H, Fishbone Vital Signs/I&O Vital Signs Date Time Temp Pulse Resp B/P (MAP) Pulse Ox O2 Delivery O2 Flow Rate FiO2 10/31/18 08:43 93 111/67 10/31/18 08:00 98.0 20 97 10/31/18 04:00 2.0 10/29/18 11:30 Nasal Cannula I&O- Last 24 Hours up to 6 AM 10/31/18 06:00 Intake Total 1220 ml Output Total 300 ml Balance 920 ml Laboratory Data 24H LABS Laboratory Tests 2 10/31/18 01:00: Urine Color YELLOW, Urine Appearance CLOUDYH, Urine pH 6.0, Urine Specific Rogerson 1.014, Urine Protein NEGATIVE, Urine Glucose (UA) NEGATIVE, Urine Ketones TRACEH, Urine Blood 2+H, Urine Nitrite NEGATIVE, Urine Bilirubin NEGATIVE, Urine Urobilinogen 0.2, Urine Leukocyte Esterase 3+H, Urine WBC (Auto) 75H, Urine RBC (Auto) 7H, Urine Hyaline Casts (Auto) 0, Urine Bacteria (Auto) 3+H, Urine Squamous Epithelial Cells 1, Urine Sperm (Auto) 10/31/18 04:23: Immature Granulocyte % (Auto) 0.4, White Blood Count 8.4, Red Blood Count 4.08, Hemoglobin 13.6, Hematocrit 40.5, Mean Corpuscular Volume 99.3H, Mean Corpuscu lar Hemoglobin 33.3H, Mean Corpuscular Hemoglobin Concent 33.6, Red Cell Distribution Width 12.4, Platelet Count 340, Neutrophils (%) (Auto) 59.5, Lymphocytes (%) (Auto) 22.4L, Monocytes (%) (Auto) 11.2H, Eosinophils (%) (Auto) 5.4H, Basophils (%) (Auto) 1.1H, Neutrophils # (Auto) 5.0, Lymphocytes # (Auto) 1.9, Monocytes # (Auto) 0.9H, Eosinophils # (Auto) 0.5, Basophils # (Auto) 0.1, Nucleated Red Blood Cells % (auto) 0.0, Anion Gap 4L, Glomerular Filtration Rate > 60.0, Blood Urea Nitrogen 24#H, Creatinine 0.64, Sodium Level 132L, Potassium Level 3.6, Chloride Level 95L, Carbon Dioxide Level 33H, Calcium Level 8.9, Aspartate Amino Transf (AST/SGOT) 34, Alanine Aminotransferase (ALT/SGPT) 18, Alkaline Phosphatase 93, Total Bilirubin 0.4, Total Protein 7.3, Albumin 3.0L, Magnesium Level 1.9, Albumin/Globulin Ratio 0.70L CBC/BMP Laboratory Tests 10/31/18 04:23 Red Blood Count 4.08, Mean Corpuscular Volume 99.3 H, Mean Corpuscular Hemoglobin 33.3 H, Mean Corpuscular Hemoglobin Concent 33.6, Red Cell Distribution Width 12.4, Neutrophils (%) (Auto) 59.5, Lymphocytes (%) (Auto) 22.4 L, Monocytes (%) (Auto) 11.2 H, Eosinophils (%) (Auto) 5.4 H, Basophils (%) (Auto) 1.1 H, Neutrophils # (Auto) 5.0, Lymphocytes # (Auto) 1.9, Monocytes # (Auto) 0.9 H, Eosinophils # (Auto) 0.5, Basophils # (Auto) 0.1, Calcium Level 8.9, Aspartate Amino Transf (AST/SGOT) 34, Alanine Aminotransferase (ALT/SGPT) 18, Alkaline Phosphatase 93, Total Bilirubin 0.4, Total Protein 7.3, Albumin 3.0 L Microbiology Microbiology 10/29/18 Respiratory Virus Panel (PCR) ([facility]) - Final, Complete 10/31/18 Urine Culture, Received Pending MARIANNA MORAN MD Oct 31, 2018 12:44
[2018-10-31 16:00] VITALS: BP 118/69
[2018-10-31 20:00] VITALS: BP 112/76
[2018-11-01] VITALS: BP 120/75
[2018-11-01] MEDS ORDERED: METOPROLOL 5 MG/5 ML VIAL IV STA (00:48)
[2018-11-01 04:00] VITALS: BP 132/72
[2018-11-01 05:32] LABS: BASO # 0.1 10^3/uL (0.0-0.2); EOS # 0.4 10^3/uL (0.0-0.50); EOS % 4.8 % (0.0-3.0); HEMATOCRIT 42.3 % (36.0-47.0); HEMOGLOBIN 14.3 g/dl (12.0-15.5); LYMPH # 1.8 10^3/uL (1.5-4.5); LYMPH % 21.3 % (24.0-44.0); MEAN CORPUSCULAR HEMOGLOBIN 34.4 pg (27.0-33.0); MEAN CORPUSCULAR HGB CONC 33.8 g/dl (32.0-36.5); MEAN CORPUSCULAR VOLUME 101.7 fl (80.0-96.0); MONO # 1.1 10^3/uL (0.0-0.8); MONO % 13.7 % (0.0-5.0); NEUTROPHILS # 4.9 10^3/uL (1.8-7.7); NEUTROPHILS % 58.7 % (36.0-66.0); PLATELET COUNT, AUTOMATED 303 10^3/uL (150-450); RED BLOOD COUNT 4.16 10^6/uL (4.00-5.40); WHITE BLOOD COUNT 8.4 10^3/uL (4.0-10.0)
[2018-11-01] MEDS: SLF 3 ML SYR IV SCH (05:44)
[2018-11-01 06:01] LABS: ALT/SGPT 14 U/L (12-78); BILIRUBIN,TOTAL 0.4 MG/DL (0.2-1.0); BLOOD UREA NITROGEN 16 MG/DL (7-18); CALCIUM LEVEL 9.1 MG/DL (8.8-10.2); CARBON DIOXIDE LEVEL 33 MEQ/L (21-32); CHLORIDE LEVEL 97 MEQ/L (98-107); CREATININE FOR GFR 0.57 MG/DL (0.55-1.30); GLOMERULAR FILTRATION RATE > 60.0 (>32); GLUCOSE, FASTING 103 MG/DL (70-100); MAGNESIUM LEVEL 1.8 MG/DL (1.8-2.4); POTASSIUM SERUM 3.2 MEQ/L (3.5-5.1); SODIUM LEVEL 136 MEQ/L (136-145)
[2018-11-01 08:00] VITALS: BP 121/90
[2018-11-01] MEDS ORDERED: POTASSIUM CHLORIDE 10 MEQ SR TABLET PO ONE (08:00)
[2018-11-01] MEDS: DOCUSATE SODIUM 100 MG CAP PO SCH (08:20)
[2018-11-01] MEDS: levETIRAcetam 250MG TABLET (KEPPRA) PO SCH (08:21)
[2018-11-01] MEDS: APIXABAN 5 MG TAB (ELIQUIS) PO SCH (08:21)
[2018-11-01] MEDS: ASPIRIN 81 MG ENTERIC TAB PO SCH (08:21)
[2018-11-01] MEDS: PRIMIDONE 50 MG TAB PO SCH (08:22)
[2018-11-01] MEDS: SENOKOT S TAB PO SCH (08:22)
[2018-11-01] MEDS: NYSTATIN 100,000 UNITS/GM TOPICAL PWD 15 GM TOP SCH (08:23)
[2018-11-01 08:24] VITALS: BP 121/90
[2018-11-01] MEDS: METOPROLOL TART 50 MG TAB PO SCH (08:24)
[2018-11-01] MEDS: cefTRIAXone SOD 1 GM in D5W MINI-BAG PLUS 50 ML IV SCH (11:00)
[2018-11-01] MEDS ORDERED: ASPI81TAEC PO (11:05)
[2018-11-01] MEDS ORDERED: ELIQ5TAB PO (11:05)
[2018-11-01] MEDS ORDERED: LASI20TA3 PO (11:05)
[2018-11-01] MEDS ORDERED: ALDA25TA2 PO (11:05)
[2018-11-01 12:00] VITALS: BP 122/61
--- NOTE | 2018-11-01 14:19 | DS.PDOC ---
Discharge Summary General Date of Admission Oct 29, 2018 at 09:39 Date of Discharge 11/01/18 Discharge Summary PROCEDURES PERFORMED DURING STAY: None. ADMITTING/DISCHARGE DIAGNOSES: New onset atrial fibrillation Acute kidney injury Urinary tract infection Diastolic congestive heart failure History of seizures COMPLICATIONS/CHIEF COMPLAINT: Dehydration. HISTORY OF PRESENT ILLNESS: . 82-year-old female with past medical history of seizure disorder, osteoarthritis, peripheral neuropathy, chronic diastolic congestive heart failure, recurrent urinary tract infections, and TIA presented to the ER with a chief complaint of increased lethargy, weakness, and malaise. According to the patient's daughters who were at the bedside, the patient has been increasingly fatigued and less responsive since the weekend. They report that the patient has had several similar incidents in the past when she had a urinary tract infection. There were no reports of fevers, chills, chest pain, palpitations, abdominal pain, numbness/tingling, acute focal weakness, or any nausea/vomiting/diarrhea. In the ER, the patient was noted to be dehydrated and was noted to have an acute kidney injury. The patient has been empirically started on antibiotic therapy for a possible urinary tract infection. In addition, the patient was also noted to be in new onset atrial fibrillation with a rapid ventricular rate. She will be admitted to the hospitalist service for further evaluation and management. During hospitalization, the patient was provided with IV fluid hydration and empiric antibiotic therapy for an underlying UTI. In addition, the patient was started on anticoagulation for her atrial fibrillation after the risks, benefits, and altered options were discussed with the patient's family at length. The patient's heart rate has been well controlled on her current regimen and after treatment for her underlying dehydration. The patient's renal function has returned back to its baseline. The patient's diuretic therapy has been decreased due to her overall generally decreased by mouth intake and proclivity to dehydration/overdiuresis. At this time, the patient states that she is feeling well and is eager to return back to [facility]. I have advised that the patient follow-up with a primary care physician within 7 days. Lastly, the patient is to return to the ER for any acute emergencies. DISCHARGE MEDICATIONS: Please see below. ALLERGIES: Please see below. PHYSICAL EXAMINATION ON DISCHARGE: VITAL SIGNS: Please see below. General Exam: Positive: Alert, Cooperative, No Acute Distress, Other (patient oriented to place, birthdate, situation but not year or president) ENT Exam: Positive: Atraumatic, Mucous membr. moist/pink Chest Exam: Positive: Diminished Heart Exam: Positive: Rate Normal, Normal S1, Normal S2 Telemetry: Positive: Sinus Abdomen Exam: Positive: Soft; Negative: Tenderness Extremity Exam: Negative: Tenderness, Swelling Neuro Exam: Positive: Strength at 5/5 X4 ext LABORATORY DATA: Please see below. IMAGING: EXAM: CT Head Without Contrast EXAM DATE/TIME: 10/29/2018 6:12 AM CLINICAL HISTORY: 82 years old, female; Signs and symptoms; Altered mental status/memory loss; Confusion or disorientation; Additional info: TIA TECHNIQUE: Imaging protocol: Axial computed tomography images of the head/brain without contrast. Radiation optimization: All CT scans at this facility use at least one of these dose optimization techniques: automated exposure control; mA and/or kV adjustment per patient size (includes targeted exams where dose is matched to clinical indication); or iterative reconstruction. COMPARISON: CT Head without contrast 12/26/2012 9:20 AM The report from this study was not available for review at the time of this interpretation. FINDINGS: Brain: No acute large vessel territorial infarct, intracranial hemorrhage, mass effect, or herniation is noted. There is a 3.9 cm x 3.3 cm cystic lesion along the anterior aspect of the interhemispheric fissure extending between the frontal horns of both lateral ventricles with peripheral calcifications, which is similar in appearance compared to the prior CT scan on 12/26/2012. There is a 2.6 cm x 2 cm hyperdense lesion containing multiple calcifications along the right posterior margin of this lesion in the posterior inferior aspect of the right frontal lobe, which is also unchanged compared to the prior CT scan on 12/26/2012. There is chronic encephalomalacia involving the right frontal lobe. Brainstem: Unremarkable. Midline shift: There is no midline shift. Ventricles: The ventricles are moderately dilated in proportion to the sulci, which is compatible with moderate generalized cerebral volume loss that is similar in appearance compared to the prior CT scan on 12/26/2012. Bones/joints: Postoperative changes are noted from a right frontal craniotomy. No acute fracture. No bony destructive changes. Sinuses: Visualized sinuses are unremarkable. No acute sinusitis. Mastoid air cells: Visualized mastoid air cells are unremarkable. No mastoid effusion. Soft tissues: Unremarkable. Vasculature: There are atherosclerotic calcifications of the intracranial portion of the vertebral arteries, the basilar artery, and both internal carotid arteries. IMPRESSION: 1. No CT evidence for an acute intracranial process. No significant change compared to the prior CT scan on 12/26/2012. 2. Cystic lesion along the anterior aspect of the interhemispheric fissure extending between the frontal horns of both lateral ventricles with peripheral calcifications, which is similar in appearance compared to the prior CT scan on 12/26/2012. Chest x-ray: Single view. History: TIA. Comparison study: March 14, 2018. Findings: Oxygen delivery tubing and EKG electrodes are seen. There is linear density at the right base consistent with plate-like atelectasis today. Pleural angles are sharp. Lung valdivia are otherwise clear. Heart is enlarged as before. The lungs are exposed at a relatively low level of inspiration unchanged. Impression: Right base discoid atelectasis. Mild cardiomegaly. Otherwise no acute disease. Clinical: Acute renal sufficiency. Technique: Real time soni scale ultrasound examination using curved array transducer. Findings: The right kidney is normal in reniform shape, size and echogenicity measuring 10.4 x 4.9 x 5.0 cm and includes multiple nonobstructing calculi measuring between 1.0 cm and 2.5 cm. No associated hydronephrosis, mass or perinephric stranding appreciated. The left kidney is normal in reniform shape, size, and echogenicity measuring 10.3 x 4.3 x 4.9 cm and without nephrolithiasis, hydronephrosis, cystic or mass lesion or perinephric stranding. Bladder is collapsed. Impression: Right-sided nephrolithiasis with calculi measuring possibly up to 2.5 cm. No hydronephrosis. Normal left kidney. EXAM: MR Head Without Contrast EXAM DATE/TIME: 10/30/2018 9:58 PM CLINICAL HISTORY: 82 years old, female; Signs and symptoms; Speech disturbance; Slurred speech; Prior surgery; Surgery date: 6+ months; Surgery type: HX of frontal craniotomy and tumor removal TECHNIQUE: Imaging protocol: MR of the head without contrast. COMPARISON: MRI-Brain without Contrast 12/21/2012 5:06 PM FINDINGS: Brain: Increase signal on diffusion-weighted imaging most likely artifact related to the adjacent magnetic susceptibility artifact. Cystic focus in the anterior aspect of the interhemispheric fissure extending to the frontal bones of both lateral ventricles is noted on prior CT. Multiple foci of T2 lengthening are demonstrated in the subcortical, periventricular and centrum semiovale white matter consistent with age-related small vessel gliosis. Ventricles: Normal. No ventriculomegaly. Bones/joints: Extensive magnetic susceptibility artifact status post right frontal craniotomy for brain tumor. Soft tissues: Normal. Sinuses: Normal as visualized. No acute sinusitis. Mastoid air cells: Normal as visualized. No mastoid effusion. Orbits: Unremarkable. IMPRESSION: Multiple foci of T2 lengthening are demonstrated in the subcortical, periventricular and centrum semiovale white matter consistent with age-related small vessel gliosis. Stable appearance of the previously demonstrated cystic focus in the anterior hemispheric fissure as described above. PROGNOSIS: Fair ACTIVITY: As tolerated. DIET: 2 g low sodium diet, 1800 mL fluid restricted diet DISCHARGE PLAN: DISPOSITION: O4 [facility]. DISCHARGE INSTRUCTIONS: I have advised that the patient follow-up with a primary care physician within 7 days. DISCHARGE CONDITION: Stable. TIME SPENT ON DISCHARGE: Greater than 30 minutes. Vital Signs/I&Os Vital Signs Date Time Temp Pulse Resp B/P (MAP) Pulse Ox O2 Delivery O2 Flow Rate FiO2 11/01/18 12:00 97.9 77 19 122/61 (81) 100 10/31/18 04:00 2.0 10/29/18 11:30 Nasal Cannula I&O- Last 24 Hours up to 6 AM 11/01/18 06:00 Intake Total 920 ml Output Total 825 ml Balance 95 ml Laboratory Data Labs 24H Laboratory Tests 2 11/01/18 05:09: Immature Granulocyte % (Auto) 0.5, White Blood Count 8.4, Red Blood Count 4.16, Hemoglobin 14.3, Hematocrit 42.3, Mean Corpuscular Volume 101.7H, Mean Corpuscular Hemoglobin 34.4H, Mean Corpuscular Hemoglobin Concent 33.8, Red Cell Distribution Width 12.8, Platelet Count 303, Neutrophils (%) (Auto) 58.7, Lymphocytes (%) (Auto) 21.3L, Monocytes (%) (Auto) 13.7H, Eosinophils (%) (Auto) 4.8H, Basophils (%) (Auto) 1.0, Neutrophils # (Auto) 4.9, Lymphocytes # (Auto) 1.8, Monocytes # (Auto) 1.1H, Eosinophils # (Auto) 0.4, Basophils # (Auto) 0.1, Nucleated Red Blood Cells % (auto) 0.0, Anion Gap 6L, Glomerular Filtration Rate > 60.0, Blood Urea Nitrogen 16, Creatinine 0.57, Sodium Level 136, Potassium Level 3.2L, Chloride Level 97L, Carbon Dioxide Level 33H, Calcium Level 9.1, Aspartate Amino Transf (AST/SGOT) 24, Alanine Aminotransferase (ALT/SGPT) 14, Alkaline Phosphatase 93, Total Bilirubin 0.4, Total Protein 7.0, Albumin 3.0L, Magnesium Level 1.8, Albumin/Globulin Ratio 0.75L CBC/BMP Laboratory Tests 11/01/18 05:09 Red Blood Count 4.16, Mean Corpuscular Volume 101.7 H, Mean Corpuscular Hemoglobin 34.4 H, Mean Corpuscular Hemoglobin Concent 33.8, Red Cell Distribution Width 12.8, Neutrophils (%) (Auto) 58.7, Lymphocytes (%) (Auto) 21.3 L, Monocytes (%) (Auto) 13.7 H, Eosinophils (%) (Auto) 4.8 H, Basophils (%) (Auto) 1.0, Neutrophils # (Auto) 4.9, Lymphocytes # (Auto) 1.8, Monocytes # (Auto) 1.1 H, Eosinophils # (Auto) 0.4, Basophils # (Auto) 0.1, Calcium Level 9.1, Aspartate Amino Transf (AST/SGOT) 24, Alanine Aminotransferase (ALT/SGPT) 14, Alkaline Phosphatase 93, Total Bilirubin 0.4, Total Protein 7.0, Albumin 3.0 L Microbiology Microbiology 10/29/18 Respiratory Virus Panel (PCR) ([facility]) - Final, Complete 10/31/18 Urine Culture - Final, Complete Discharge Medications Scheduled (Esomeprazole Magnesium) 20 Mg Cap, 20 MG PO DAILY, (Reported) Acetaminophen (Acetaminophen Extra Stren) 500 Mg Tab, 500 MG PO TID, (Reported) 0900, 1300, 1900 Apixaban Base (Eliquis) 5 Mg Tab, 5 MG PO BID Aspirin (Aspirin EC) 81 Mg Tabec, 81 MG PO DAILY Docusate Sod/Senna (Senna S 8.6-50 mg) 1 Tab Tab, 2 TAB PO BID, (Reported) Docusate Sodium (Colace) 100 Mg Cap, 100 MG PO BID, (Reported) Furosemide (Lasix) 20 Mg Tab, 40 MG PO DAILY Gabapentin (Gabapentin) 100 Mg Cap, 100 MG PO QHS, (Reported) Levetiracetam (Keppra) 500 Mg Tab, 500 MG PO BID, (Reported) Lidocaine HCl (Lidocaine HCl 2% Jelly) 1 Dose/30 Ml Jel, 1 DOSE TOP BID, ( Reported) APPLIES TO LEFT FOOT FOR PAIN Magnesium Chloride (Slow-Mag 71.5-119 mg) 1 Tab Tab, 2 TAB PO DAILY, (Reported) Metoprolol Tartrate (Metoprolol Tartrate) 50 Mg Tab, 50 MG PO DAILY, (Reported) Nortriptyline Hcl (Pamelor) 10 Mg Cap, 20 MG PO BID, (Reported) Polyethylene Glycol (Miralax) 1 Pow Pow, 17 GM PO DAILY, (Reported) Primidone (Primidone) 50 Mg Tab, 150 MG PO BID, (Reported) Sodium Phosphate/Biphosphate (Fleet Enema 7-19 gm/118Ml) 1 Lesvia Lesvia, 1 EA AR DAILY, (Reported) 1 TIME PER DAY EVERY 14 DAYS AT 1400 Spironolactone (Aldactone) 25 Mg Tab, 12.5 MG PO DAILY Scheduled PRN (Aluminum/Magnesium/Simeth 200-200-20 mg/5Ml) 1 Ирина Ирина, 30 ML PO Q4H PRN for GI UPSET, (Reported) Acetaminophen (Tylenol) 325 Mg Tab, 650 MG PO Q4H PRN for MILD PAIN (PS 1-4), (Reported) Acetaminophen (Acetaminophen) 650 Mg Sup, 650 MG AR Q4H PRN for PAIN / FEVER, (Reported) Artificial Tears (Artificial Tears) 1.4 % Marina, 1 DROP OU Q4H PRN for DRY EYES, (Reported) Bisacodyl (Dulcolax) 10 Mg Sup, 10 MG AR DAILY PRN for CONSTIPATION, (Reported) Lidocaine HCl (Lidocaine HCl 2% Jelly) 1 Dose/30 Ml Jel, 1 DOSE TOP Q4H PRN for NEUROPATHIC PAIN, (Reported) USES ON LEFT FOOT/ ANKLE Milk Of Magnesia (Milk of Magnesia) 1,200 Mg/15 Ml Ирина, 30 ML PO DAILY PRN for CONSTIPATION, (Reported) Sodium Phosphate/Biphosphate (Fleet Enema 7-19 gm/118Ml) 1 Lesvia Lesvia, 1 EA AR DAILY PRN for CONSTIPATION, (Reported) Allergies Coded Allergies: prednisone (Verified Allergy, Unknown, 10/29/18) MARIANNA MORAN MD Nov 01, 2018 14:19
== END 2018-11-01 13:05 | DRG 683 ==
LOC: M ED 05:02 → M ED INP 09:39 → M PCU 12:30
PROVIDERS: ADMIT Internal Medicine; ATTEND Internal Medicine
DX: N17.9 Acute kidney failure, unspecified (principal); N39.0 Urinary tract infection, site not specified; I50.32 Chronic diastolic (congestive) heart failure; E86.0 Dehydration; G40.909 Epilepsy, unspecified, not intractable, without status epilepticus; M19.90 Unspecified osteoarthritis, unspecified site; G62.9 Polyneuropathy, unspecified; Z79.899 Other long term (current) drug therapy; Z79.82 Long term (current) use of aspirin; Z88.8 Allergy status to other drugs, medicaments and biological substances; I48.91 Unspecified atrial fibrillation

== ENCOUNTER 2018-11-04 07:53 | Inpatient (IN) | payer MEDICARE, MEDICAID ==
[~2018-11-04] VITALS: Ht 157.5 cm; Wt 99.3 kg
[~2018-11-04 07:53] MED LIST changes: -TORS20TA2 PO
[2018-11-04] MEDS ORDERED: DIGOXIN INJ 0.5 MG/2 ML AMP (J1160) IV ONE (08:15)
[2018-11-04 08:25] LABS: BASO # 0.1 10^3/uL (0.0-0.2); BASO % 0.9 % (0.0-1.0); EOS # 0.4 10^3/uL (0.0-0.50); EOS % 3.7 % (0.0-3.0); HEMATOCRIT 41.2 % (36.0-47.0); HEMOGLOBIN 13.9 g/dl (12.0-15.5); LYMPH # 2.7 10^3/uL (1.5-4.5); LYMPH % 22.9 % (24.0-44.0); MEAN CORPUSCULAR HEMOGLOBIN 34.3 pg (27.0-33.0); MEAN CORPUSCULAR HGB CONC 33.7 g/dl (32.0-36.5); MEAN CORPUSCULAR VOLUME 101.7 fl (80.0-96.0); MONO # 1.2 10^3/uL (0.0-0.8); MONO % 10.3 % (0.0-5.0); NEUTROPHILS # 7.2 10^3/uL (1.8-7.7); NEUTROPHILS % 61.9 % (36.0-66.0); PLATELET COUNT, AUTOMATED 328 10^3/uL (150-450); RED BLOOD COUNT 4.05 10^6/uL (4.00-5.40); WHITE BLOOD COUNT 11.6 10^3/uL (4.0-10.0)
--- NOTE | 2018-11-04 08:55 | REP ---
Portable chest, 08:35 a.m., single AP sitting view: Comparison is the portable chest dated 10/29/2018. The patient is rotated, as previously. This obscures most of the right hemithorax. Suspect a tiny volume of fluid in the minor fissure. The visualized lung valdivia otherwise clear. Cardiac size appears mildly enlarged although there is magnification from positioning. There is a fracture in the proximal shaft of the left humerus, probably old. Impression: Probable tiny volume of fluid in the minor fissure. Mild cardiomegaly. Electronically Signed by Bang Montano MD 11/04/2018 08:47 A
[2018-11-04] MEDS ORDERED: DOCUSATE SODIUM 100 MG CAP PO SCH (09:00)
[2018-11-04] MEDS ORDERED: TORS20TA2 PO (09:09)
[2018-11-04 09:31] LABS: BLOOD UREA NITROGEN 16 MG/DL (7-18); CALCIUM LEVEL 9.1 MG/DL (8.8-10.2); CARBON DIOXIDE LEVEL 30 MEQ/L (21-32); CHLORIDE LEVEL 103 MEQ/L (98-107); CK-MB VALUE MASS < 1.0 NG/ML (<3.6); CPK CREATINE PHOSPHOKINASE 80 U/L (26-192); CREATININE FOR GFR 0.64 MG/DL (0.55-1.30); GLOMERULAR FILTRATION RATE > 60.0 (>32); GLUCOSE, FASTING 116 MG/DL (70-100); MB/CK RELATIVE INDEX 1.25 (< OR =4); POTASSIUM SERUM 4.2 MEQ/L (3.5-5.1); SODIUM LEVEL 138 MEQ/L (136-145); TROPONIN I < 0.02 NG/ML (< 0.10)
[2018-11-04] MEDS ORDERED: DIGOXIN INJ 0.5 MG/2 ML AMP (J1160) IV STA (09:50)
[2018-11-04] MEDS ORDERED: NS 500 ML IV ONE ×2 (10:15→16:00)
--- NOTE | 2018-11-04 10:49 | HPEPDOC ---
[facility] Medical History & Physical Date of Admission Nov 04, 2018 History and Physical Chief Complaint: irregular heart rate, slurred speech History of Present Illness (obtained from Daughter at the bedside, Vicky [phone]) 82-year-old DO NOT RESUSCITATE, DO NOT INTUBATE V female resident with past medical history of seizure disorder, osteoarthritis, peripheral neuropathy, chronic diastolic congestive heart failure, recurrent urinary tract infections, dehydration, Afib w RVR and TIA presented to the ER due to "fast heart rate". According to the daughter, Vicky, pt has been diagnosed with Afib on anticoagulant in early October when pt was admitted for dehydration. MRI brain: gliosis, no CVA. and since being at the snf despite being compliant with anticoagulation, pt has had worsening slurred speech, and difficulty feeding herself, requiring staff to feed her. She has had occasional "heaviness" in the chest when her heart rate races, but documented in the 80's by SNF nurses per Daughter. Today, pt's daughter was called due to "fast heart rate," and was sent to the ER where pt was found to have Aflutter 135-166 on Telemetry. Due to sbp80'smmHg, pt was given digoxin 0.5 mg and 0.25 mg with subsequent increase of sbp to low 100mmHg at the bedside. According to the daughter, pt has no c/o fever, chills, nausea, vomiting, abd pain, sob, lightheadedness, dizziness, weight changes, cough, but admits to slurred speech, difficulty eating with a "downward " course since being at the snf. denies any dysuria, urgency, frequency. c/o generalized weakness, difficulty ambulating requiring assistance. In the ER, pt was found to have negative card yadav, EKG: Aflutter with RVR 130. 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 Review of Systems Other systems 10 point review of systems negative unless otherwise specified in the HPI. Physical Examination vitals : please see below General Exam: Positive: Cooperative, No Acute Distress, Other (patient oriented to place, birthdate, daughter's name but not year or situation) HEENT Exam: Positive: Atraumatic, Mucous membr. moist/pink left facial droop, slurred speech. Chest Exam: Positive: Diminished but ctab no wheezing or rales Heart Exam: Positive: irregularly irregular Tachycardic, Normal S1, Normal S2 Telemetry: Positive: Afib w rvr 125 Abdomen Exam: Positive: Soft; nontender obese abd well healed surgical scars, no HSM Extremity Exam: Negative: Tenderness, Swelling Neuro: left sided weakness 3/5 UE and LE. right UE/LE 5/5 some dysmetria on finger to nose testing. left facial droop. slurred speech. laboratory data, imaging studies, microbiology: pls see below 2D echo: 10/29/18 1. Normal overall left ventricle systolic function. Left ventricle appeared normal in size. Left ventricle ejection fraction 70% by visual estimate. Grade 1 left ventricle (LV) diastolic dysfunction. 2. Normal right ventricle size and systolic function. 3. Mild aortic valve sclerosis. 4. Suggestive of moderate elevation of pulmonary artery systolic pressure. 5. Small pericardial effusion measuring 0.6 cm over the right ventricle free wall laterally and extending thinly over the right atrial free wall. No diastolic chamber collapse. 6. Technically difficult echocardiogram. DD: Enoch Bangura MD [facility] 10/29/182116 DT: RADHA 10/29/182121 DS: FREDO 10/30/18 1700 Assessment and plan: 82-year-old DO NOT RESUSCITATE, DO NOT INTUBATE [facility] female resident with past medical history of seizure disorder, osteoarthritis, peripheral neuropathy, chronic diastolic congestive heart failure, recurrent urinary tract infections, dehydration, Afib w RVR and TIA presented to the ER due to "fast heart rate". According to the daughter, Vicky, pt has been diagnosed with Afib on anticoagulant in early October when pt was admitted for dehydration. MRI brain: gliosis, no CVA. and since being at the snf despite being compliant with anticoagulation, pt has had worsening slurred speech, and difficulty feeding herself, requiring staff to feed her. She has had occasional "heaviness" in the chest when her heart rate races, but documented in the 80's by SNF nurses per Daughter. Today, pt's daughter was called due to "fast heart rate," and was sent to the ER where pt was found to have Aflutter 135-166 on Telemetry. Due to sbp80'smmHg, pt was given digoxin 0.5 mg and 0.25 mg with subsequent increase of sbp to low 100mmHg at the bedside. According to the daughter, pt has no c/o fever, chills, nausea, vomiting, abd pain, sob, lightheadedness, dizziness, weight changes, cough, but admits to slurred speech, difficulty eating with a "downward " course since being at the snf. denies any dysuria, urgency, frequency. c/o generalized weakness, difficulty ambulating requiring assistance. In the ER, pt was found to have negative card yadav, EKG: Aflutter with RVR 130. Atrial Fibrillation w RVR s/p iv digoxin due to low sbp 80, improved to map>75. trial of cardizem iv gtt 20 mg iv bolus, and 5mg/hr until rate controlled. Then, change to po once rate<100. check dig level in am. 2d echo reviewed CHADs-VASc score of 4--risks, benefits resume anticoagulation neuro checks. ct head/mri brain ordered. echo reviewed. carotid dopplers if (+) new CVA. Slurred Speech with known history of Afib/Aflutter increasing difficulty swallowing with risk of aspiration check Stat CT head, mri brain resume anticoagulation speech swallow eval to rule out aspiration Diastolic congestive heart failure LV EF 70% 2D ECHO reviewed cxr: clear. no pleural effusion or edema. Moderate Pulmonary HTN complicating care Small pericardial effusion, no clinical signs of tamponade. monitor for symptoms. Hx of Seizure Disorders Last seizure was apparently 10+ years ago according to family Cont Nikia, Primidone EEG due to AMS. neurology consult if (+) epileptiform activity. Cystic Lesion on CT Head CT Head notable for Cystic lesion along the anterior aspect of the interhemispheric fissure extending between the frontal horns of both lateral ventricles with peripheral calcifications, which is similar in appearance compared to the prior CT scan on 12/26/2012. Follow up as outpatient DVT Prophylaxis on oral anticoagulant for afib. diet: await swallow eval. Code Status: DNR/DNI Vital Signs Vital Signs Date Time Temp Pulse Resp B/P (MAP) Pulse Ox O2 Delivery O2 Flow Rate FiO2 11/04/18 09:59 135 11/04/18 09:45 120/84 (96) 11/04/18 09:21 18 97 Nasal Cannula 2.0 11/04/18 08:08 97.3 Laboratory Data Labs 24H Laboratory Tests 2 11/04/18 08:10: Immature Granulocyte % (Auto) 0.3, White Blood Count 11.6H, Red Blood Count 4.05, Hemoglobin 13.9, Hematocrit 41.2, Mean Corpuscular Volume 101.7H, Mean Corpuscular Hemoglobin 34.3H, Mean Corpuscular Hemoglobin Concent 33.7, Red Cell Distribution Width 13.2, Platelet Count 328, Neutrophils (%) (Auto) 61.9, Lymphocytes (%) (Auto) 22.9L, Monocytes (%) (Auto) 10.3H, Eosinophils (%) (Auto) 3.7H, Basophils (%) (Auto) 0.9, Neutrophils # (Auto) 7.2, Lymphocytes # (Auto) 2.7, Monocytes # (Auto) 1.2H, Eosinophils # (Auto) 0.4, Basophils # (Auto) 0.1, Nucleated Red Blood Cells % (auto) 0.0 11/04/18 08:42: Anion Gap 5L, Glomerular Filtration Rate > 60.0, Blood Urea Nitrogen 16, Creatinine 0.64, Sodium Level 138, Potassium Level 4.2, Chloride Level 103, Ca rbon Dioxide Level 30, Calcium Level 9.1, Total Creatine Kinase 80, Creatine Kinase MB < 1.0, Creatine Kinase MB Relative Index 1.25, Troponin I < 0.02, Thyroid Stimulating Hormone (TSH) 0.970 CBC/BMP Laboratory Tests 11/04/18 08:10 Red Blood Count 4.05, Mean Corpuscular Volume 101.7 H, Mean Corpuscular Hemoglobin 34.3 H, Mean Corpuscular Hemoglobin Concent 33.7, Red Cell Dist ribution Width 13.2, Neutrophils (%) (Auto) 61.9, Lymphocytes (%) (Auto) 22.9 L, Monocytes (%) (Auto) 10.3 H, Eosinophils (%) (Auto) 3.7 H, Basophils (%) (Auto) 0.9, Neutrophils # (Auto) 7.2, Lymphocytes # (Auto) 2.7, Monocytes # (Auto) 1.2 H, Eosinophils # (Auto) 0.4, Basophils # (Auto) 0.1 11/04/18 08:42 Calcium Level 9.1, Total Creatine Kinase 80 Home Medications Scheduled (Esomeprazole Magnesium) 20 Mg Cap, 20 MG PO DAILY Acetaminophen (Acetaminophen Extra Stren) 500 Mg Tab, 500 MG PO TID 0900, 1300, 1900 Apixaban Base (Eliquis) 5 Mg Tab, 5 MG PO BID Docusate Sod/Senna (Senna S 8.6-50 mg) 1 Tab Tab, 2 TAB PO BID Docusate Sodium (Colace) 100 Mg Cap, 100 MG PO BID Levetiracetam (Keppra) 500 Mg Tab, 500 MG PO BID Magnesium Chloride (Slow-Mag 71.5-119 mg) 1 Tab Tab, 2 TAB PO DAILY Metoprolol Tartrate (Metoprolol Tartrate) 50 Mg Tab, 50 MG PO DAILY Nortriptyline Hcl (Pamelor) 10 Mg Cap, 20 MG PO BID Polyethylene Glycol (Miralax) 1 Pow Pow, 17 GM PO DAILY Primidone (Primidone) 50 Mg Tab, 150 MG PO BID Sodium Phosphate/Biphosphate (Fleet Enema 7-19 gm/118Ml) 1 Lesvia Lesvia, 1 EA MO Q2WK 1 TIME PER DAY EVERY 14 DAYS AT 1400 Spironolactone (Aldactone) 25 Mg Tab, 12.5 MG PO DAILY Torsemide (Torsemide) 20 Mg Tab, 20 MG PO DAILY Scheduled PRN (Aluminum/Magnesium/Simeth 200-200-20 mg/5Ml) 1 Ирина Ирина, 30 ML PO Q4H PRN for GI UPSET Acetaminophen (Tylenol) 325 Mg Tab, 650 MG PO Q4H PRN for MILD PAIN (PS 1-4) Artificial Tears (Artificial Tears) 1.4 % Marina, 1 DROP OU Q4H PRN for DRY EYES Bisacodyl (Dulcolax) 10 Mg Sup, 10 MG MO DAILY PRN for CONSTIPATION Milk Of Magnesia (Milk of Magnesia) 1,200 Mg/15 Ml Ирина, 30 ML PO DAILY PRN for CONSTIPATION Sodium Phosphate/Biphosphate (Fleet Enema 7-19 gm/118Ml) 1 Lesvia Lesvia, 1 EA MO DAILY PRN for CONSTIPATION Allergies Coded Allergies: prednisone (Verified Allergy, Unknown, 10/29/18) SUSSY BAIRES MD Nov 04, 2018 10:14
[2018-11-04] MEDS ORDERED: MOM 30ML SUSPENSION UDC PO PRN (11:00)
[2018-11-04] MEDS ORDERED: BISACODYL 10 MG SUPP PR PRN (11:00)
[2018-11-04] MEDS ORDERED: FLEET ENEMA PR PRN ×2 (11:00)
[2018-11-04] MEDS ORDERED: diltiaZEM 125 MG in NS 100 ML IV SCH (11:00)
[2018-11-04] MEDS ORDERED: POLYVINYL ALCOHOL OPHTH SOLN 15 ML(LIQUITEARS) OU PRN (11:00)
[2018-11-04 11:15] VITALS: BP 169/98
[2018-11-04 11:17] LABS: ABG BASE EXCESS 6.6 (-2.0-2.0); ABG HCO3 31.3 MEQ/L (22.0-26.0); ABG O2 SATURATION 97.4 % (95.0-99.0); ABG PARTIAL PRESSURE CO2 44.6 mmHg (35.0-45.0); ABG PARTIAL PRESSURE O2 88.7 mmHg (75.0-100.0); ABG STANDARD HCO3 30.5 MEQ/L (22.0-26.0); ABG TOTAL CO2 32.7 MEQ/L (23.0-31.0); ABG pH (ARTERIAL) 7.464 UNITS (7.350-7.450)
--- NOTE | 2018-11-04 12:03 | REP ---
CT brain without contrast: History: Slurred speech. Rule out recurrent CVA. Atrial flutter. Comparison brain CT studies are from October 29, 2018 and December 26, 2012. CT findings: Preliminary digital director of scout work radiograph and bone windows suggest an old craniotomy in the right frontal region. Visualized paranasal sinuses are clear. No acute bony abnormality is seen. No intraorbital abnormality is appreciated. There is moderate diffuse cerebral atrophy. There is a cystic area in the right frontal lobe measuring 3.8 cm in anteroposterior dimension. This is unchanged from the 2013 prior study. There is some cyst wall calcification associated is also unchanged. Encephalomalacia is seen in the right frontal lobe unchanged from the 2013 study. There is some calcification in the temporal lobe anteriorly unchanged from the 2013 study. Vascular calcification is noted. There is no evidence of intracranial hemorrhage, mass, or acute infarction. Impression: Chronic changes including vascular calcification, diffuse atrophy, small vessel changes, encephalomalacia in the right frontal lobe, and a right frontal lobe cystic lesion all unchanged from prior CT study in 2013 . No acute intracranial abnormality. Electronically Signed by Adrian Calvo MD 11/04/2018 11:54 A
[2018-11-04 13:20] VITALS: BP 110/62
--- NOTE | 2018-11-04 13:23 | NUR ---
Pt w/ oropharyngeal dysphagia. Recommend continue NPO pending results of MBSS Cookie Swallow. Addendum: 11/04/18 at 1324 by OLEGARIO MCKENZIE [facility] SP Amended: Links added.
--- NOTE | 2018-11-04 15:08 | REP ---
EMERGENCY MRI BRAIN WITHOUT CONTRAST: HISTORY: Slurred speech. Atrial flutter. Rule out CVA. Comparison is made with today's CT study of the brain. Comparison MRI exam is from October 30, 2018. TECHNIQUE: Axial and sagittal imaging planes are utilized for T1- and T2-weighted scans. Sequences include spin-echo, fast spin echo, FLAIR, and diffusion weighted sequences. MRI FINDINGS: There is evidence of right frontal craniotomy. A cystic lesion is again noted in the frontal lobe centered to the right of midline as before. This cystic lesion extends bilaterally, either into the frontal horns of the lateral ventricles bilaterally, or anteriorly adjacent to them. It exhibits restricted diffusion. There is no other evidence of restricted diffusion to suggest acute ischemia. There is diffuse volume loss. There is encephalomalacia in the right frontal lobe as before. There is no evidence of intracranial hemorrhage or cortical infarction. IMPRESSION: There is a complex cystic lesion to the right of midline in the frontal region either anterior to or extending into the frontal horns of the lateral ventricles as on previous brain imaging studies. There is post craniotomy change on the right. Encephalomalacia is seen in the right frontal lobe. Diffuse volume loss and small vessel changes are again noted. There is no evidence of acute hemorrhage, infarct or new mass lesion. The findings are essentially unchanged from the prior MRI study from October 28, 2012. Electronically Signed by Adrian Calvo MD 11/04/2018 05:40 P
--- NOTE | 2018-11-04 15:32 | NUR ---
Recommend pureed solids, nectar thick liquids (straw use ok), medications crushed in puree, staff to feed pt only when upright, awake & alert. Continue oral care 3x/day w/ staff assist. Pt demonstrated laryngeal penetration of nectar thick liquids & thin liquids. Cough response noted w/ thin liquids. Outcomes of exam limited d/t shoulders obstructing view, unable to definitively r/o aspiration. Pt w/ decreased oral motor control, impaired cognition, and requiring assistance w/ positioning. D/t these factors, advanced solids were not tested and pureed solids are recommended. Addendum: 11/04/[address] [facility] SP Amended: Links added.
[2018-11-04 15:35] VITALS: BP 102/70
--- NOTE | 2018-11-04 15:58 | REP ---
Modified barium swallow: History: Rule out aspiration. Procedure: This study was performed in conjunction with the swallowing therapist. Imaging was suboptimal in that we were unable to produce video images below the level of the glottis because of the patient's body habitus and shoulders. Fluoroscopy time: 1.3 minutes. Findings: There was some pooling in the hypopharynx. With nectar and thin consistency material, swallowing videography demonstrated mild laryngeal reflux. One episode of coughing was observed. Aspiration could not be confirmed for technical reasons as above. Impression: Laryngeal penetration was observed with nectar and thin consistency barium material. We were unable to see below the level of the glottis due to body habitus. Electronically Signed by Adrian Calvo MD 11/04/2018 05:40 P
[2018-11-04 17:15] VITALS: BP 105/72
[2018-11-04] MEDS: levETIRAcetam 250MG TABLET (KEPPRA) PO SCH ×2 (17:34→21:43)
[2018-11-04] MEDS: PRIMIDONE 50 MG TAB PO SCH ×2 (17:34→21:43)
[2018-11-04] MEDS: NORTRIPTYLINE 10 MG CAP PO SCH ×2 (17:34→21:43)
[2018-11-04] MEDS: APIXABAN 5 MG TAB (ELIQUIS) PO SCH ×2 (17:34→21:43)
[2018-11-04] MEDS: SENOKOT S TAB PO SCH ×2 (17:35→21:43)
[2018-11-04 17:52] LABS: ABG BASE EXCESS 2.2 (-2.0-2.0); ABG HCO3 27.3 MEQ/L (22.0-26.0); ABG O2 SATURATION 98.5 % (95.0-99.0); ABG PARTIAL PRESSURE CO2 44.2 mmHg (35.0-45.0); ABG PARTIAL PRESSURE O2 110.3 mmHg (75.0-100.0); ABG STANDARD HCO3 26.5 MEQ/L (22.0-26.0); ABG TOTAL CO2 28.7 MEQ/L (23.0-31.0); ABG pH (ARTERIAL) 7.409 UNITS (7.350-7.450)
[2018-11-04 19:00] LABS: CPK CREATINE PHOSPHOKINASE 154 U/L (26-192); MB/CK RELATIVE INDEX 0.91 (< OR =4); TROPONIN I < 0.02 NG/ML (< 0.10)
[2018-11-04 20:00] VITALS: BP 103/55
[2018-11-04] MEDS ORDERED: cefTRIAXone SOD 1 GM in D5W MINI-BAG PLUS 50 ML IV ONE (20:45)
[2018-11-04] MEDS ORDERED: PILL CRUSHER/CUTTER 1 EACH XX PRN (21:30)
--- NOTE | 2018-11-04 21:30 | ECGEPIP ---
Stationary ECG Study [facility] - ED Test Date: 2018-11-04 Pat Name: YULIET VELASQUEZ Department: Room: - Gender: F Soubrette: : 1935 Requested By: Mannie Plata Order Number: [id number] Reading MD: Mannie Cheung Measurements Intervals [place] Rate: 158 P: [place]: 0 QRS: 8 QRSD: 91 T: 32 QT: 264 QTc: 429 Interpretive Statements ATRIAL FIBRILLATION WITH RAPID VENTRICULAR RESPONSE SIMILAR TO 10/29/18 Electronically Signed On 11-04-2018 21:30:28 EDT by Mannie Cheung
[2018-11-04 23:59] VITALS: BP 131/73
[2018-11-05] VITALS (8 sets, daily range): BP systolic 100–132; BP diastolic 62–82
[2018-11-05 00:49] LABS: MB/CK RELATIVE INDEX 1.15 (< OR =4); TROPONIN I 0.02 NG/ML (< 0.10)
[2018-11-05] MEDS ORDERED: NS 1,000 ML IV ONE (04:15)
[2018-11-05 05:38] LABS: HEMATOCRIT 40.4 % (36.0-47.0); HEMOGLOBIN 13.3 g/dl (12.0-15.5); MEAN CORPUSCULAR HEMOGLOBIN 33.8 pg (27.0-33.0); MEAN CORPUSCULAR HGB CONC 32.9 g/dl (32.0-36.5); MEAN CORPUSCULAR VOLUME 102.8 fl (80.0-96.0); PLATELET COUNT, AUTOMATED 292 10^3/uL (150-450); RED BLOOD COUNT 3.93 10^6/uL (4.00-5.40); WHITE BLOOD COUNT 11.1 10^3/uL (4.0-10.0)
[2018-11-05 06:18] LABS: BLOOD UREA NITROGEN 13 MG/DL (7-18); CALCIUM LEVEL 8.5 MG/DL (8.8-10.2); CARBON DIOXIDE LEVEL 28 MEQ/L (21-32); CHLORIDE LEVEL 106 MEQ/L (98-107); CREATININE FOR GFR 0.58 MG/DL (0.55-1.30); DIGOXIN LEVEL 1.2 NG/ML (0.5-2.0); GLOMERULAR FILTRATION RATE > 60.0 (>32); GLUCOSE, FASTING 91 MG/DL (70-100); POTASSIUM SERUM 3.9 MEQ/L (3.5-5.1); SODIUM LEVEL 140 MEQ/L (136-145)
[2018-11-05] MEDS: PRIMIDONE 50 MG TAB PO SCH ×2 (08:23→21:12)
[2018-11-05] MEDS: APIXABAN 5 MG TAB (ELIQUIS) PO SCH ×2 (08:23→21:12)
[2018-11-05] MEDS: SENOKOT S TAB PO SCH ×2 (08:23→21:12)
[2018-11-05] MEDS: NORTRIPTYLINE 10 MG CAP PO SCH ×2 (08:23→21:12)
[2018-11-05] MEDS: levETIRAcetam 250MG TABLET (KEPPRA) PO SCH ×2 (08:23→21:12)
--- NOTE | 2018-11-05 08:28 | IPNPDOC ---
Date Seen The patient was seen on 11/05/18. Progress Note SUBJECTIVE: 82-year-old pertinent past medical history of A. concepcion on anticoagulation and seizures presented to the ER due to "fast heart rate" and slurred speech. She was admitted for management of A. fib with RVR and rule out TIA/CVA. She was seen this morning with nursing. Overnight her heart rate has been relatively rate controlled but once I saw her in the morning her heart rate went up to 130s and 140s on a Cardizem drip. Her blood pressure at that time was 110/70. The patient really does not any complaints she would like to have some food but speech therapy recommendations is pured solids and thickened liquids. Her slurred speech is back to baseline. Recent head imaging was negative for any acute stroke. We're transitioning her to by mouth Cardizem for appropriate rate control and will titrate up. Also reported by nursing that she had minimal urine output overnight and she has a purewick in place. There is no other complaints reported. OBJECTIVE PHYSICAL EXAMINATION: VITAL SIGNS: Please see below. GENERAL: Pleasant 82-year-old female in no acute distress apparently answering questions slight slurred speech (baseline) oriented to place HEENT: Atraumatic moist mucous membranes left facial droop and slurred speech CARDIOVASCULAR: Irregularly irregular tachycardia faint 2/6 systolic murmur at the second right intercostal space RESPIRATORY: Diminished breath sounds due to lack of effort but positive Bibasilar Rales with no expiratory wheezing ABDOMINAL: Obese abdomen soft nontender well-healed surgical scars on the abdomen EXTREMITIES: No lower extremity edema or calf tenderness NEUROLOGICAL: Alert and oriented to place but not year. generalized weakness in the upper and lower extremities (unsure if this is due to lack of effort patient) LABORATORY DATA, IMAGING STUDIES, MICROBIOLOGY: Please see below. Echocardiography: 10/29/18 (Performed prior to this admission) 1. Normal overall left ventricle systolic function. Left ventricle appeared normal in size. Left ventricle ejection fraction 70% by visual estimate. Grade 1 left ventricle (LV) diastolic dysfunction. 2. Normal right ventricle size and systolic function. 3. Mild aortic valve sclerosis. 4. Suggestive of moderate elevation of pulmonary artery systolic pressure. 5. Small pericardial effusion measuring 0.6 cm over the right ventricle free wall laterally and extending thinly over the right atrial free wall. No diastolic chamber collapse. 6. Technically difficult echocardiogram. DVT prophylaxis ordered?: Yes. Eliquis. ASSESSMENT AND PLAN: 82-year-old pertinent past medical history of A. fib on anticoagulation and seizures presented to the ER due to "fast heart rate" and slurred speech. She was admitted for management of A. fib with RVR and rule out TIA/CVA. PROBLEMS: Atrial Fibrillation w RVR -s/p IV Digoxin and Cardizem 20 mg IV bolus, and Dilitiazem 5mg/hr -Start Cardizem 30 mg by mouth every 6 hours for rate control, will titrate up for goal HR <100 -CHADs-VASc: 4 -NOAC for a.Fib - Eliquis Hypotension -sometime Tachycardia can cause hypotension -BUN/Cr stable -c/w with 100 CC per hour with NS -c/w with Cardizem to achieve rate control. -will monitor urine output and clinical improvement TIA -Slurred Speech with known history of Afib/Aflutter -increasing difficulty swallowing with risk of aspiration: pureed solids, nectar thick liquids -CT head and MRI: negative for acute changes -Resume anticoagulation, Eliquis. -ASA limited role in presentation of stroke in patient with a. fib. -speech swallow eval: unable to asses for aspiration because of patient body habitus Diastolic congestive heart failure LV EF 70% -10/29/2018: Echo results above -CXR: Negative for pleural effusion or edema. Moderate Pulmonary HTN -complicating care Small Pericardial Effusion -negative clinical signs of tamponade on admission -monitor for symptoms. 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 -Follow up as outpatient DVT Prophylaxis -C/W Eliquis - NOAC for a.Fib PT/OT -consulted Diet: Per Speech therapy recommendation: pureed solids, nectar thick liquids Code Status DNR/DNI VS, I&O, 24H, Fishbone Vital Signs/I&O Vital Signs Date Time Temp Pulse Resp B/P (MAP) Pulse Ox O2 Delivery O2 Flow Rate FiO2 11/05/18 04:00 2.0 11/05/18 04:00 97.7 94 18 108/63 (78) 98 11/04/18 11:00 Nasal Cannula I&O- Last 24 Hours up to 6 AM 11/05/18 06:00 Intake Total 1470 ml Output Total 60 ml Balance 1410 ml Laboratory Data 24H LABS Laboratory Tests 2 11/04/18 08:10: Immature Granulocyte % (Auto) 0.3, White Blood Count 11.6H, Red Blood Count 4.05, Hemoglobin 13.9, Hematocrit 41.2, Mean Corpuscular Volume 101.7H, Mean Corpuscular Hemoglobin 34.3H, Mean Corpuscular Hemoglobin Concent 33.7, Red Cell Distribution Width 13.2, Platelet Count 328, Neutrophils (%) (Auto) 61.9, Lymphocytes (%) (Auto) 22.9L, Monocytes (%) (Auto) 10.3H, Eosinophils (%) (Auto) 3.7H, Basophils (%) (Auto) 0.9, Neutrophils # (Auto) 7.2, Lymphocytes # (Auto) 2.7, Monocytes # (Auto) 1.2H, Eosinophils # (Auto) 0.4, Basophils # (Auto) 0.1, Nucleated Red Blood Cells % (auto) 0.0 11/04/18 08:42: Anion Gap 5L, Glomerular Filtration Rate > 60.0, Blood Urea Nitrogen 16, Creatinine 0.64, Sodium Level 138, Potassium Level 4.2, Chloride Level 103, Carbon Dioxide Level 30, Calcium Level 9.1, Total Creatine Kinase 80, Creatine K inase MB < 1.0, Creatine Kinase MB Relative Index 1.25, Troponin I < 0.02, Procalcitonin <0.05, Thyroid Stimulating Hormone (TSH) 0.970 11/04/18 11:08: Blood Gas Bicarbonate Standard 30.5H, Arterial Blood pH 7.464H, Arterial Blood Partial Pressure CO2 44.6, Arterial Blood Partial Pressure O2 88.7, Arterial Blood Total CO2 32.7H, Arterial Blood HCO3 31.3H, Arterial Blood Base Excess 6.6H, Arterial Blood Oxygen Saturation 97.4 11/04/18 11:39: Ammonia 21 11/04/18 17:17: Bedside Glucose (Misc Panel) 87 11/04/18 17:41: Blood Gas Bicarbonate Standard 26.5H, Arterial Blood pH 7.409, Arterial Blood Partial Pressure CO2 44.2, Arterial Blood Partial Pressure O2 110.3H, Arterial Blood Total CO2 28.7, Arterial Blood HCO3 27.3H, Arterial Blood Base Excess 2.2H, Arterial Blood Oxygen Saturation 98.5 11/04/18 17:48: Total Creatine Kinase 154#, Creatine Kinase MB 1.0, Creatine Kinase MB Relative Index 0.91, Troponin I < 0.02 11/04/18 18:04: Urine Color JAY, Urine Appearance TURBIDH, Urine pH 6.0, Urine Specific [place] 1.015, Urine Protein 2+H, Urine Glucose (UA) NEGATIVE, Urine Ketones NEGATIVE, Urine Blood 3+H, Urine Nitrite NEGATIVE, Urine Bilirubin NEGATIVE, Urine Urobilinogen 0.2, Urine Leukocyte Esterase 3+H, Urine WBC (Auto) TNTCH, Urine RBC (Auto) TNTCH, Urine Hyaline Casts (Auto) 0, Urine Bacteria (Auto) 1+H, Urine Squamous Epithelial Cells 32, Urine Sperm (Auto) 11/04/18 18:11: Bedside Glucose (Misc Panel) 118H 11/05/18 00:06: Total Creatine Kinase 130, Creatine Kinase MB 2.0, Creatine Kinase MB Relative Index 1.15, Troponin I 0.02 11/05/18 05:03: Nucleated Red Blood Cells % (auto) 0.0, Anion Gap 6L, Glomerular Filtration Rate > 60.0, Blood Urea Nitrogen 13, Creatinine 0.58, Sodium Level 140, Potassium Level 3.9, Chloride Level 106, Carbon Dioxide Level 28, Calcium Level 8.5L, Digoxin Level 1.2 CBC/BMP Laboratory Tests 11/04/18 08:10 Red Blood Count 4.05, Mean Corpuscular Volume 101.7 H, Mean Corpuscular Hemoglobin 34.3 H, Mean Corpuscular Hemoglobin Concent 33.7, Red Cell Distribution Width 13.2, Neutrophils (%) (Auto) 61.9, Lymphocytes (%) (Auto) 22.9 L, Monocytes (%) (Auto) 10.3 H, Eosinophils (%) (Auto) 3.7 H, Basophils (%) (Auto) 0.9, Neutrophils # (Auto) 7.2, Lymphocytes # (Auto) 2.7, Monocytes # (Auto) 1.2 H, Eosinophils # (Auto) 0.4, Basophils # (Auto) 0.1 11/04/18 08:42 Calcium Level 9.1, Total Creatine Kinase 80 11/05/18 05:03 Red Blood Count 3.93 L, Mean Corpuscular Volume 102.8 H, Mean Corpuscular Hemoglobin 33.8 H, Mean Corpuscular Hemoglobin Concent 32.9, Red Cell Distribution Width 13.1, Calcium Level 8.5 L Microbiology Microbiology 11/04/18 Urine Culture, Received Pending GME ATTESTATION GME ATTESTATION My faculty preceptor for this patient encounter was physically present during the encounter and was fully available. All aspects of the patient interview, examination, medical decision making process, and medical care plan development were reviewed and approved by the faculty preceptor. The faculty preceptor is aware and concurs with the plan as stated in the body of this note and will attest to such by his/her cosignature. ATTENDING NOTE I, Dennis Alonso, have both independently examined this patient as well as reviewed the documentation. I have discussed in detail with the resident the findings and plan of treatment as documented in the residents documentation. I will continue to follow the patient and offer further guidance to the patients care as necessary during this hospital stay. LIBBY CAPPS DO Nov 05, 2018 08:28 DENNIS ALONSO MD Nov 05, 2018 18:49
[2018-11-05] MEDS ORDERED: NYSTATIN 100,000 UNITS/GM TOPICAL PWD 15 GM TOP PRN (10:15)
[2018-11-05] MEDS: NS 1,000 ML IV SCH (15:27)
[2018-11-05] MEDS ORDERED: DIGOXIN INJ 0.5 MG/2 ML AMP (J1160) IV ONE (17:00)
[2018-11-05] MEDS: diltiaZEM 125 MG in NS 100 ML IV SCH (17:46)
[2018-11-06] MEDS: NS 1,000 ML IV SCH ×2 (00:28→12:34)
[2018-11-06 04:00] VITALS: BP 123/71
[2018-11-06 05:34] LABS: HEMATOCRIT 38.5 % (36.0-47.0); HEMOGLOBIN 12.5 g/dl (12.0-15.5); MEAN CORPUSCULAR HGB CONC 32.5 g/dl (32.0-36.5); MEAN CORPUSCULAR VOLUME 104.6 fl (80.0-96.0); PLATELET COUNT, AUTOMATED 252 10^3/uL (150-450); RED BLOOD COUNT 3.68 10^6/uL (4.00-5.40); WHITE BLOOD COUNT 10.1 10^3/uL (4.0-10.0)
[2018-11-06 05:56] LABS: BLOOD UREA NITROGEN 7 MG/DL (7-18); CALCIUM LEVEL 7.8 MG/DL (8.8-10.2); CARBON DIOXIDE LEVEL 28 MEQ/L (21-32); CHLORIDE LEVEL 109 MEQ/L (98-107); CREATININE FOR GFR 0.46 MG/DL (0.55-1.30); GLOMERULAR FILTRATION RATE > 60.0 (>32); GLUCOSE, FASTING 94 MG/DL (70-100); MAGNESIUM LEVEL 1.5 MG/DL (1.8-2.4); POTASSIUM SERUM 4.1 MEQ/L (3.5-5.1); SODIUM LEVEL 139 MEQ/L (136-145)
[2018-11-06 08:00] VITALS: BP 126/76
[2018-11-06 08:00] LABS: C REACTIVE PROTEIN QUANTITATIV 1.16 MG/DL (0.00-0.30)
[2018-11-06 08:36] LABS: C REACTIVE PROTEIN QUANTITATIV 1.33 MG/DL (0.00-0.30)
[2018-11-06] MEDS: MAG SULF 1GM/100ML (MAG RUN) 1 GM in APPROPRIATE DILUENT 1 EA IV SCH ×2 (08:59→10:13)
[2018-11-06] MEDS: DIGOXIN 0.125 MG TAB PO SCH (08:59)
[2018-11-06] MEDS: PRIMIDONE 50 MG TAB PO SCH ×2 (08:59→21:38)
[2018-11-06] MEDS: APIXABAN 5 MG TAB (ELIQUIS) PO SCH ×2 (09:00→21:38)
[2018-11-06] MEDS: NORTRIPTYLINE 10 MG CAP PO SCH ×2 (09:00→21:38)
[2018-11-06] MEDS: SENOKOT S TAB PO SCH ×2 (09:00→21:38)
[2018-11-06] MEDS: levETIRAcetam 250MG TABLET (KEPPRA) PO SCH ×2 (09:00→21:38)
--- NOTE | 2018-11-06 11:06 | NUR ---
Recommend please upgrade to thin liquids via straw sips. Pt requires assistance for upright positioning for intake. Please continue pureed solids and medications crushed. Please cue pt to take 1 straw sip at a time to prevent increased shortness of breath. Addendum: 11/06/[address] [facility] Amended: Links added.
[2018-11-06 12:00] VITALS: BP 125/78
--- NOTE | 2018-11-06 13:02 | IPNPDOC ---
Date Seen The patient was seen on 11/06/18. Progress Note SUBJECTIVE: 82-year-old pertinent past medical history of A. concepcion on anticoagulation and seizures presented to the ER due to "fast heart rate" and slurred speech. She was admitted for management of A. fib with RVR and rule out TIA/CVA. She was seen this morning with nursing. Cardizem drip restarted last night for the patient was not rate controlled on the by mouth Cardizem. Since the trip has been started she has been relatively ranging in heart rate from 90s to 110s. Nursing states that patient is back at baseline urine output is slightly adequate blood pressure has improved. She does have a slurred speech at baseline which is unchanged. No other events reported . OBJECTIVE PHYSICAL EXAMINATION: VITAL SIGNS: Please see below. GENERAL: Pleasant 82-year-old female in no acute distress apparently answering questions slight slurred speech (baseline) oriented to place HEENT: Atraumatic moist mucous membranes left facial droop and slurred speech CARDIOVASCULAR: Irregularly irregular tachycardia faint 2/6 systolic murmur at the second right intercostal space RESPIRATORY: Diminished breath sounds due to lack of effort but positive Bibasilar Rales with no expiratory wheezing ABDOMINAL: Obese abdomen soft nontender well-healed surgical scars on the abdomen EXTREMITIES: No lower extremity edema or calf tenderness NEUROLOGICAL: Alert and oriented to place but not year. generalized weakness in the upper and lower extremities (unsure if this is due to lack of effort patient) LABORATORY DATA, IMAGING STUDIES, MICROBIOLOGY: Please see below. Echocardiography: 10/29/18 (Performed prior to this admission) 1. Normal overall left ventricle systolic function. Left ventricle appeared normal in size. Left ventricle ejection fraction 70% by visual estimate. Grade 1 left ventricle (LV) diastolic dysfunction. 2. Normal right ventricle size and systolic function. 3. Mild aortic valve sclerosis. 4. Suggestive of moderate elevation of pulmonary artery systolic pressure. 5. Small pericardial effusion measuring 0.6 cm over the right ventricle free wall laterally and extending thinly over the right atrial free wall. No diastolic chamber collapse. 6. Technically difficult echocardiogram. DVT prophylaxis ordered?: Yes. Eliquis. ASSESSMENT AND PLAN: 82-year-old pertinent past medical history of A. fib on anticoagulation and seizures presented to the ER due to "fast heart rate" and slurred speech. She was admitted for management of A. fib with RVR and rule out TIA/CVA. PROBLEMS: Atrial Fibrillation w RVR -s/p IV Digoxin and Cardizem 20 mg IV bolus, -c/w Cardizem drip 5cc/hr for rate control, to achieve goal HR <100. will continue for 24 hours and if rate controlled in the AM will transition to PO Cardizem 60mg q6h. -c/w digoxin 0.125 -CHADs-VASc: 4 -NOAC for a.Fib - Eliquis Hypotension (Improving) -sometime Tachycardia can cause hypotension -c/w Normal saline at 100 CC per hour with NS -c/w with Cardizem to achieve rate control. -will monitor urine output and clinical improvement Low Urine Output -c/w with 100 CC per hour with NS for she doesnt have the best by mouth intake -Lungs bibasilar Rales but admits currently stable. -BUN/Cr stable -Will monitor for clinical improvement Slurred speech - possibly 2/2 TIA -Slurred Speech with known history of Afib/Aflutter -increasing difficulty swallowing with risk of aspiration: upgrade to thin liquids via straw sips -CT head and MRI: negative for acute changes -Resume anticoagulation, Eliquis. -ASA limited role in presentation of stroke in patient with a. fib. -speech swallow eval: unable to asses for aspiration because of patient body habitus Diastolic congestive heart failure LV EF 70% - no evidence of exacerbation / appears euvolemic -10/29/2018: Echo results above -CXR: Negative for pleural effusion or edema. Moderate Pulmonary HTN -complicating care Small Pericardial Effusion -negative clinical signs of tamponade on admission -monitor for symptoms. 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 -Follow up as outpatient DVT Prophylaxis -C/W Eliquis - NOAC for a.Fib PT/OT -consulted Diet: Per Speech therapy recommendation: upgrade to thin liquids via straw sips Code Status DNR/DNI VS, I&O, 24H, Fishbone Vital Signs/I&O Vital Signs Date Time Temp Pulse Resp B/P (MAP) Pulse Ox O2 Delivery O2 Flow Rate FiO2 11/06/18 12:00 96.3 89 22 125/78 (94) 96 11/06/18 07:30 2.0 11/04/18 11:00 Nasal Cannula I&O- Last 24 Hours up to 6 AM 11/06/18 06:00 Intake Total 2460 ml Output Total 750 ml Balance 1710 ml Laboratory Data 24H LABS Laboratory Tests 2 11/06/18 05:20: Nucleated Red Blood Cells % (auto) 0.0, Anion Gap 2L, Glomerular Filtration Rate > 60.0, Blood Urea Nitrogen 7, Creatinine 0.46L, Sodium Level 139, Potassium Level 4.1, Chloride Level 109H, Carbon Dioxide Level 28, Calcium Level 7.8L, Magnesium Level 1.5L, C-Reactive Protein, Quantitative 1.33H CBC/BMP Laboratory Tests 11/06/18 05:20 Red Blood Count 3.68 L, Mean Corpuscular Volume 104.6 H, Mean Corpuscular Hemoglobin 34.0 H, Mean Corpuscular Hemoglobin Concent 32.5, Red Cell Distr ibution Width 13.3, Calcium Level 7.8 L Microbiology Microbiology 11/04/18 Urine Culture - Final, Complete GME ATTESTATION GME ATTESTATION My faculty preceptor for this patient encounter was physically present during the encounter and was fully available. All aspects of the patient interview, examination, medical decision making process, and medical care plan development were reviewed and approved by the faculty preceptor. The faculty preceptor is aware and concurs with the plan as stated in the body of this note and will attest to such by his/her cosignature. ATTENDING NOTE I, Dennis Alonso, have both independently examined this patient as well as reviewed the documentation. I have discussed in detail with the resident the findings and plan of treatment as documented in the residents documentation. I will continue to follow the patient and offer further guidance to the patients care as necessary during this hospital stay. LIBBY CAPPS DO Nov 06, 2018 13:02 DENNIS ALONSO MD Nov 06, 2018 13:24
[2018-11-06] MEDS: diltiaZEM 125 MG in NS 100 ML IV SCH (14:02)
[2018-11-06 16:00] VITALS: BP 112/62
[2018-11-06 20:00] VITALS: BP 114/82
[2018-11-06 23:59] VITALS: BP 144/90
[2018-11-07] MEDS: NS 1,000 ML IV SCH (03:09)
[2018-11-07 04:00] VITALS: BP 118/71
[2018-11-07 05:47] LABS: HEMATOCRIT 37.6 % (36.0-47.0); HEMOGLOBIN 12.2 g/dl (12.0-15.5); MEAN CORPUSCULAR HEMOGLOBIN 33.7 pg (27.0-33.0); MEAN CORPUSCULAR HGB CONC 32.4 g/dl (32.0-36.5); MEAN CORPUSCULAR VOLUME 103.9 fl (80.0-96.0); PLATELET COUNT, AUTOMATED 272 10^3/uL (150-450); RED BLOOD COUNT 3.62 10^6/uL (4.00-5.40); WHITE BLOOD COUNT 9.5 10^3/uL (4.0-10.0)
[2018-11-07 06:13] LABS: BLOOD UREA NITROGEN 7 MG/DL (7-18); C REACTIVE PROTEIN QUANTITATIV 2.16 MG/DL (0.00-0.30); CALCIUM LEVEL 8.1 MG/DL (8.8-10.2); CARBON DIOXIDE LEVEL 24 MEQ/L (21-32); CHLORIDE LEVEL 109 MEQ/L (98-107); CREATININE FOR GFR 0.45 MG/DL (0.55-1.30); GLOMERULAR FILTRATION RATE > 60.0 (>32); GLUCOSE, FASTING 93 MG/DL (70-100); SODIUM LEVEL 138 MEQ/L (136-145)
[2018-11-07 08:00] VITALS: BP 118/72
[2018-11-07] MEDS ORDERED: SLF 3 ML SYR IV PRN (08:00)
[2018-11-07] MEDS: SENOKOT S TAB PO SCH ×2 (08:07→20:22)
[2018-11-07] MEDS: levETIRAcetam 250MG TABLET (KEPPRA) PO SCH ×2 (08:08→20:22)
[2018-11-07] MEDS: NORTRIPTYLINE 10 MG CAP PO SCH ×2 (08:08→20:22)
[2018-11-07] MEDS: PRIMIDONE 50 MG TAB PO SCH ×2 (08:08→20:23)
[2018-11-07] MEDS: APIXABAN 5 MG TAB (ELIQUIS) PO SCH ×2 (08:09→20:22)
[2018-11-07] MEDS: DIGOXIN 0.125 MG TAB PO SCH (08:09)
--- NOTE | 2018-11-07 09:10 | REP ---
PORTABLE CHEST X-RAY: Single view. HISTORY: Abnormal breath sounds. COMPARISON STUDY: November 04, 2018. FINDINGS: EKG electrodes are seen. The patient is rotated somewhat to the right. Moderate cardiac enlargement is again seen unchanged. The lungs are exposed at a relatively low level of inspiration as before. The aorta is tortuous. There is discoid atelectasis or fibrosis in the left and right base. No definite infiltrate or effusion. There is an old right rib fracture and an old left humeral fracture. IMPRESSION: Moderate cardiomegaly. Hypoinflation. Bibasilar discoid atelectasis versus fibrosis. Electronically Signed by Adrian Calvo MD 11/07/2018 06:31 P
[2018-11-07] MEDS ORDERED: FUROSEMIDE 20 MG/2 ML VIAL (J1940) IV ONE ×2 (09:30→19:30)
--- NOTE | 2018-11-07 09:54 | NUR ---
Recommend please upgrade to level 2 solids, continue supervision & assist prn during meals, assist pt for upright position for PO intake. Addendum: 11/07/18 at 0956 by [facility] Amended: Links added.
--- NOTE | 2018-11-07 10:57 | IPNPDOC ---
Date Seen The patient was seen on 11/07/18. Progress Note SUBJECTIVE: 82-year-old pertinent past medical history of A. concepcion on anticoagulation and seizures presented to the ER due to "fast heart rate" and slurred speech. She was admitted for management of A. fib with RVR and rule out TIA/CVA. She was seen this morning. She has been rate controlled overnight on the Cardizem drip and we will transition her to PO Cardizem 60mg q6h this AM. She appears slightly short of breath today when answering questions. She states that she feels a little short of breath as well. There is only been recorded at 700 mL's of urine output in the last 24 hours. She has purewick in place. She has bilateral lower extremity edema up to mid calf and overnight she did have a slight bump her in her O2 t 3 L for a little while and then lowered back to her baseline 2 L of oxygen. Lasix 20 mg IV 1 was ordered this morning based on clinical exam and her past history of diastolic dysfunction. OBJECTIVE PHYSICAL EXAMINATION: VITAL SIGNS: Please see below. GENERAL: Pleasant 82-year-old female in some acute distress using some accessory muscles and slightly tachypneic to a answer questions HEENT: Atraumatic moist mucous membranes left facial droop and slurred speech. NO JVD can be noted because of body habitus CARDIOVASCULAR: Irregularly irregular tachycardia faint 2/6 systolic murmur at the second right intercostal space RESPIRATORY: Diminished breath sounds due to lack of effort. bilateral rales up to mid lung field, no expiratory wheezing ABDOMINAL: Obese abdomen soft nontender well-healed surgical scars on the abdomen EXTREMITIES: 2+ extremity edema up to mid calf but negative calf tenderness NEUROLOGICAL: Alert and oriented to place but not year. generalized weakness in the upper and lower extremities (unsure if this is due to lack of effort patient) LABORATORY DATA, IMAGING STUDIES, MICROBIOLOGY: Please see below. Echocardiography: 10/29/18 (Performed prior to this admission) 1. Normal overall left ventricle systolic function. Left ventricle appeared normal in size. Left ventricle ejection fraction 70% by visual estimate. Grade 1 left ventricle (LV) diastolic dysfunction. 2. Normal right ventricle size and systolic function. 3. Mild aortic valve sclerosis. 4. Suggestive of moderate elevation of pulmonary artery systolic pressure. 5. Small pericardial effusion measuring 0.6 cm over the right ventricle free wall laterally and extending thinly over the right atrial free wall. No chung tolic chamber collapse. 6. Technically difficult echocardiogram. DVT prophylaxis ordered?: Yes. Eliquis. ASSESSMENT AND PLAN: 82-year-old pertinent past medical history of A. concepcoin on anticoagulation and seizures presented to the ER due to "fast heart rate" and slurred speech. She was admitted for management of A. fib with RVR and rule out TIA/CVA. PROBLEMS: Atrial Fibrillation w RVR -s/p IV Digoxin and Cardizem 20 mg IV bolus, -c/w Cardizem drip 5cc/hr -Start PO Cardizem 60mg q6h. -c/w digoxin 0.125 -CHADs-VASc: 4 -NOAC for a.Fib - Eliquis Diastolic congestive heart failure LV EF 70% with severe PHTN (49mmHg) -complicates care -10/29/2018: Echo results above -Repeat CXR -Appears hypervolemic, crackles bilatearl to mid lung fluids bilateral. 2+ pitting edema LE bilateral, decreased urine output. -possible undiagnosed sleep apnea, should consider for sleep study outpatient when discharged. -Lasix 20mg IVx1 Now. Will monitor for clinical improvement. Slurred speech - possibly 2/2 TIA or UTI (Resolved) -Slurred Speech with known history of Afib/Aflutter -s/p Rocephin x1 in ER. afebrile since addmission. Leukocytosis resolved -CT head and MRI: negative for acute changes -Resume anticoagulation, Eliquis. -ASA limited role in presentation of stroke in patient with a. fib. -speech swallow eval: unable to asses for aspiration because of patient body habitus Small Pericardial Effusion -negative clinical signs of tamponade on admission -monitor for symptoms. 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 -Follow up as outpatient DVT Prophylaxis -C/W Eliquis - NOAC for a.Fib PT/OT -consulted Diet: Per Speech therapy recommendation: upgrade to thin liquids via straw sips Code Status DNR/DNI VS, I&O, 24H, Fishbone Vital Signs/I&O Vital Signs Date Time Temp Pulse Resp B/P (MAP) Pulse Ox O2 Delivery O2 Flow Rate FiO2 11/07/18 08:09 93 118/72 11/07/18 08:00 2.0 11/07/18 08:00 96.8 22 100 11/04/18 11:00 Nasal Cannula I&O- Last 24 Hours up to 6 AM 11/07/18 06:00 Intake Total 2200 ml Output Total 675 ml Balance 1525 ml Laboratory Data 24H LABS Laboratory Tests 2 11/07/18 05:25: Nucleated Red Blood Cells % (auto) 0.0, Anion Gap 5L, Glomerular Filtration Rate > 60.0, Blood Urea Nitrogen 7, Creatinine 0.45L, Sodium Level 138, Potassium Level 4.0, Chloride Level 109H, Carbon Dioxide Level 24, Calcium Level 8.1L, Magnesium Level 2.0, C-Reactive Protein, Quantitative 2.16H CBC/BMP Laboratory Tests 11/07/18 05:25 Red Blood Count 3.62 L, Mean Corpuscular Volume 103.9 H, Mean Corpuscular Hemoglobin 33.7 H, Mean Corpuscular Hemoglobin Concent 32.4, Red Cell Distribution Width 13.3, Calcium Level 8.1 L Microbiology Microbiology 11/04/18 Urine Culture - Final, Complete GME ATTESTATION GME ATTESTATION My faculty preceptor for this patient encounter was physically present during the encounter and was fully available. All aspects of the patient interview, examination, medical decision making process, and medical care plan development were reviewed and approved by the faculty preceptor. The faculty preceptor is aware and concurs with the plan as stated in the body of this note and will attest to such by his/her cosignature. ATTENDING NOTE I, Dennis Alonso, have both independently examined this patient as well as reviewed the documentation. I have discussed in detail with the resident the fi ndings and plan of treatment as documented in the residents documentation. I will continue to follow the patient and offer further guidance to the patients care as necessary during this hospital stay. LIBBY CAPPS DO Nov 07, 2018 10:57 DENNIS ALONSO MD Nov 07, 2018 18:23
[2018-11-07] MEDS: SLF 3 ML SYR IV SCH ×2 (14:00→20:23)
[2018-11-07 16:00] VITALS: BP 125/92
[2018-11-07 20:00] VITALS: BP 135/96
[2018-11-07 23:59] VITALS: BP 103/53
[2018-11-08] VITALS (7 sets, daily range): BP systolic 111–164; BP diastolic 76–96
[2018-11-08] MEDS: SLF 3 ML SYR IV SCH ×3 (05:18→22:00)
[2018-11-08 05:24] LABS: HEMATOCRIT 37.6 % (36.0-47.0); HEMOGLOBIN 12.3 g/dl (12.0-15.5); MEAN CORPUSCULAR HEMOGLOBIN 33.5 pg (27.0-33.0); MEAN CORPUSCULAR HGB CONC 32.7 g/dl (32.0-36.5); MEAN CORPUSCULAR VOLUME 102.5 fl (80.0-96.0); PLATELET COUNT, AUTOMATED 268 10^3/uL (150-450); RED BLOOD COUNT 3.67 10^6/uL (4.00-5.40); WHITE BLOOD COUNT 8.7 10^3/uL (4.0-10.0)
[2018-11-08 05:53] LABS: BLOOD UREA NITROGEN 5 MG/DL (7-18); C REACTIVE PROTEIN QUANTITATIV 3.66 MG/DL (0.00-0.30); CALCIUM LEVEL 8.4 MG/DL (8.8-10.2); CARBON DIOXIDE LEVEL 28 MEQ/L (21-32); CHLORIDE LEVEL 107 MEQ/L (98-107); CREATININE FOR GFR 0.46 MG/DL (0.55-1.30); GLOMERULAR FILTRATION RATE > 60.0 (>32); GLUCOSE, FASTING 90 MG/DL (70-100); MAGNESIUM LEVEL 1.6 MG/DL (1.8-2.4); POTASSIUM SERUM 3.7 MEQ/L (3.5-5.1); SODIUM LEVEL 140 MEQ/L (136-145)
[2018-11-08] MEDS ORDERED: MAG SULF 1GM/100ML (MAG RUN) 1 GM in APPROPRIATE DILUENT 1 EA IV ONE (06:00)
[2018-11-08] MEDS: SENOKOT S TAB PO SCH ×2 (09:00→20:13)
[2018-11-08] MEDS: PRIMIDONE 50 MG TAB PO SCH ×2 (09:11→20:13)
[2018-11-08] MEDS: levETIRAcetam 250MG TABLET (KEPPRA) PO SCH ×2 (09:11→20:12)
[2018-11-08] MEDS: DIGOXIN 0.125 MG TAB PO SCH (09:12)
[2018-11-08] MEDS: APIXABAN 5 MG TAB (ELIQUIS) PO SCH ×2 (09:12→20:13)
[2018-11-08] MEDS: NORTRIPTYLINE 10 MG CAP PO SCH ×2 (09:12→20:13)
--- NOTE | 2018-11-08 12:04 | IPNPDOC ---
Date Seen The patient was seen on 11/08/18. Progress Note SUBJECTIVE: 82-year-old pertinent past medical history of A. concepcion on anticoagulation and seizures presented to the ER due to "fast heart rate" and slurred speech. She was admitted for management of A. fib with RVR. She is clinically better this morning. She states her shortness of breath has improved. She does complain that her abdomen hurts when people keep poking at it. She's had a bowel movement and she tolerated her Lasix 20 mg a one-time dose yesterday. She has no complaints at this time. Her heart rate had some variance overnight with a high as 130. Adjustments have been made on her Cardizem PO dose was increased to 90 mg 6 hours. no other overnight events reported. OBJECTIVE PHYSICAL EXAMINATION: VITAL SIGNS: Please see below. GENERAL: Pleasant 82-year-old female in no acute distress not using any accessory muscles able to answer questions without being short of breath. HEENT: Atraumatic moist mucous membranes left facial droop and slurred speech. NO JVD can be noted because of body habitus CARDIOVASCULAR: Irregularly irregular tachycardia faint 2/6 systolic murmur at the second right intercostal space RESPIRATORY: Diminished breath sounds improved crackles. ABDOMINAL: Obese abdomen soft nontender well-healed surgical scars on the abdomen EXTREMITIES: No lower extremity edema bilaterally negative calf tenderness NEUROLOGICAL: Alert and oriented to place but not year. generalized weakness in the upper and lower extremities (unsure if this is due to lack of effort patient) LABORATORY DATA, IMAGING STUDIES, MICROBIOLOGY: Please see below. Echocardiography: 10/29/18 (Performed prior to this admission) 1. Normal overall left ventricle systolic function. Left ventricle appeared normal in size. Left ventricle ejection fraction 70% by visual estimate. Grade 1 left ventricle (LV) diastolic dysfunction. 2. Normal right ventricle size and systolic function. 3. Mild aortic valve sclerosis. 4. Suggestive of moderate elevation of pulmonary artery systolic pressure. 5. Small pericardial effusion measuring 0.6 cm over the right ventricle free wall laterally and extending thinly over the right atrial free wall. No diastolic chamber collapse. 6. Technically difficult echocardiogram. DVT prophylaxis ordered?: Yes. Eliquis. ASSESSMENT AND PLAN: 82-year-old pertinent past medical history of A. fib on anticoagulation and seizures presented to the ER due to "fast heart rate" and slurred speech. She was admitted for management of A. fib with RVR and rule out TIA/CVA. PROBLEMS: Atrial Fibrillation w RVR -s/p IV Digoxin and Cardizem 20 mg IV bolus, Cardizem drip 5cc/hr -increase PO Cardizem 90mg q6h. -c/w digoxin 0.125 once rate controlled can consider discontinuing. 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 -s/p Lasix 20mg IVx1 -monitor clinical improvement. Slurred speech - possibly 2/2 TIA or UTI (Resolved) -Slurred Speech with known history of Afib/Aflutter -s/p Rocephin x1 in ER. afebrile since addmission. Leukocytosis resolved -CT head and MRI: negative for acute changes. does have encephalomalacia in the right frontal lobe. -Resume anticoagulation, Eliquis. -ASA limited role in presentation of stroke in patient with a. fib. -speech swallow eval: unable to asses for aspiration because of patient body habitus Small Pericardial Effusion -negative clinical signs of tamponade on admission -monitor for symptoms. 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 -Follow up as outpatient DVT Prophylaxis -C/W Eliquis - NOAC for a.Fib PT/OT -consulted Diet: Per Speech therapy recommendations. Code Status DNR/DNI VS, I&O, 24H, Fishbone Vital Signs/I&O Vital Signs Date Time Temp Pulse Resp B/P (MAP) Pulse Ox O2 Delivery O2 Flow Rate FiO2 11/08/18 09:12 94 11/08/18 08:00 2.0 11/08/18 08:00 97.4 20 124/96 (105) 99 11/04/18 11:00 Nasal Cannula I&O- Last 24 Hours up to 6 AM 11/08/18 06:00 Intake Total 650 ml Output Total 1025 ml Balance -375 ml Laboratory Data 24H LABS Laboratory Tests 2 11/08/18 05:00: Nucleated Red Blood Cells % (auto) 0.0, Anion Gap 5L, Glomerular Filtration Rate > 60.0, Blood Urea Nitrogen 5L, Creatinine 0.46L, Sodium Level 140, Potassium Level 3.7, Chloride Level 107, Carbon Dioxide Level 28, Calcium Level 8.4L, Magnesium Level 1.6L, C-Reactive Protein, Quantitative 3.66H 11/08/18 11:26: Bedside Glucose (Misc Panel) 120H CBC/BMP Laboratory Tests 11/08/18 05:00 Red Blood Count 3.67 L, Mean Corpuscular Volume 102.5 H, Mean Corpuscular Hemoglobin 33.5 H, Mean Corpuscular Hemoglobin Concent 32.7, Red Cell Distribution Width 13.3, Calcium Level 8.4 L Microbiology Microbiology 11/04/18 Urine Culture - Final, Complete GME ATTESTATION GME ATTESTATION My faculty preceptor for this patient encounter was physically present during the encounter and was fully available. All aspects of the patient interview, examination, medical decision making process, and medical care plan development were reviewed and approved by the faculty preceptor. The faculty preceptor is aware and concurs with the plan as stated in the body of this note and will attest to such by his/her cosignature. ATTENDING NOTE I, Dennis Alonso, have both independently examined this patient as well as reviewed the documentation. I have discussed in detail with the resident the findings and plan of treatment as documented in the residents documentation. I will continue to follow the patient and offer further guidance to the patients care as necessary during this hospital stay. LIBBY CAPPS DO Nov 08, 2018 12:04 DENNIS ALONSO MD Nov 08, 2018 17:34
[2018-11-08] MEDS: ACETAMINOPHEN TAB 650MG DOSE (2X325MG) PO PRN (13:18)
[2018-11-08] MEDS: diphenhydrAMINE CREAM 30GM TOP PRN (15:33)
[2018-11-09 04:00] VITALS: BP 112/85
[2018-11-09 05:48] LABS: MEAN CORPUSCULAR HEMOGLOBIN 33.9 pg (27.0-33.0); MEAN CORPUSCULAR HGB CONC 33.3 g/dl (32.0-36.5); MEAN CORPUSCULAR VOLUME 101.6 fl (80.0-96.0); PLATELET COUNT, AUTOMATED 290 10^3/uL (150-450); RED BLOOD COUNT 3.84 10^6/uL (4.00-5.40); WHITE BLOOD COUNT 9.1 10^3/uL (4.0-10.0)
[2018-11-09] MEDS: SLF 3 ML SYR IV SCH ×3 (05:53→21:32)
[2018-11-09 06:20] LABS: BLOOD UREA NITROGEN 8 MG/DL (7-18); C REACTIVE PROTEIN QUANTITATIV 4.02 MG/DL (0.00-0.30); CALCIUM LEVEL 8.6 MG/DL (8.8-10.2); CARBON DIOXIDE LEVEL 26 MEQ/L (21-32); CHLORIDE LEVEL 105 MEQ/L (98-107); CREATININE FOR GFR 0.46 MG/DL (0.55-1.30); GLOMERULAR FILTRATION RATE > 60.0 (>32); GLUCOSE, FASTING 86 MG/DL (70-100); MAGNESIUM LEVEL 1.8 MG/DL (1.8-2.4); POTASSIUM SERUM 3.9 MEQ/L (3.5-5.1); SODIUM LEVEL 138 MEQ/L (136-145)
[2018-11-09 08:00] VITALS: BP 109/65
[2018-11-09 08:30] LABS: DIGOXIN LEVEL 0.9 NG/ML (0.5-2.0)
[2018-11-09] MEDS ORDERED: FUROSEMIDE 20 MG/2 ML VIAL (J1940) IV ONE (09:00)
[2018-11-09] MEDS: SENOKOT S TAB PO SCH ×2 (09:47→20:08)
[2018-11-09] MEDS: NORTRIPTYLINE 10 MG CAP PO SCH ×2 (09:47→20:08)
[2018-11-09] MEDS: levETIRAcetam 250MG TABLET (KEPPRA) PO SCH ×2 (09:48→20:04)
[2018-11-09] MEDS: PRIMIDONE 50 MG TAB PO SCH ×2 (09:48→20:04)
[2018-11-09] MEDS: METOPROLOL TART 25 MG TABLET PO SCH ×2 (09:48→20:08)
[2018-11-09] MEDS: APIXABAN 5 MG TAB (ELIQUIS) PO SCH ×2 (09:48→20:04)
[2018-11-09] MEDS: DIGOXIN 0.125 MG TAB PO SCH (09:49)
--- NOTE | 2018-11-09 09:54 | REP ---
CT chest without contrast: History: Shortness of breath. Comparison chest CT study December 27, 2012. Findings: Digital preliminary labor crew supervisor radiograph demonstrates that the patient is rotated to the right and shows low level of inspiration. This is seen on axial CT images as well. There are is a small amount of pleural fluid in both pleural spaces. Right a little larger than left. No pericardial effusion is seen. Cardiac enlargement is observed. No adrenal lesion is seen. The visualized upper abdominal structures are unremarkable. There is mild discoid atelectasis in the bases bilaterally, most prominently affecting the right lower lobe. No acute infiltrate is seen. Study is otherwise unremarkable. Advanced degenerative changes are seen in the shoulders and old post-traumatic deformity is present in the proximal humerus on the left. No bony destructive lesion is seen. Thoracic kyphosis is somewhat exaggerated. Vascular calcifications noted. No hilar or mediastinal mass or adenopathy is appreciated. Impression: Cardiomegaly. Small bilateral pleural effusions. Atelectasis in the right lower lobe. No definite infiltrate. Electronically Signed by Adrian Calvo MD 11/09/2018 02:24 P
[2018-11-09 12:00] VITALS: BP 123/84
--- NOTE | 2018-11-09 13:00 | IPNPDOC ---
Date Seen The patient was seen on 11/09/18. Progress Note SUBJECTIVE: 82-year-old pertinent past medical history of A. fib on anticoagulation and seizures presented to the ER due to "fast heart rate" and slurred speech. She was admitted for management of A. fib with RVR. She is clinically better this morning. Overnight it was reported that 2 hours prior to her Cardizem dose her heart rate will elevate up above 102 Max 150. She responds appropriately to the Cardizem 90 mg when given. Digoxin level to be checked this morning. She does have lower extremity peripheral edema but she denies having shortness of breath she is currently off of oxygen this morning and satting appropriately. She continues to work with PT and she still not safe for discha rge to does recommend her to go with home with services and possible outpatient PT. No other events reported. She denies nausea, vomiting, diarrhea, chest pain or shortness of breath. OBJECTIVE PHYSICAL EXAMINATION: VITAL SIGNS: Please see below. GENERAL: Pleasant 82-year-old female in no acute distress not using any accessory muscles able to answer questions without being short of breath. HEENT: Atraumatic moist mucous membranes left facial droop and slurred speech. NO JVD can be noted because of body habitus CARDIOVASCULAR: Irregularly irregular tachycardia faint 2/6 systolic murmur at the second right intercostal space RESPIRATORY: Diminished breath sounds bibasiliar crackles. ABDOMINAL: Obese abdomen soft nontender well-healed surgical scars on the abdomen EXTREMITIES: +1 edema bilaterally up to calf, negative calf tenderness NEUROLOGICAL: Alert and oriented to place but not year. generalized weakness in the upper and lower extremities (unsure if this is due to lack of effort pa tient) LABORATORY DATA, IMAGING STUDIES, MICROBIOLOGY: Please see below. Echocardiography: 10/29/18 (Performed prior to this admission) 1. Normal overall left ventricle systolic function. Left ventricle appeared normal in size. Left ventricle ejection fraction 70% by visual estimate. Grade 1 left ventricle (LV) diastolic dysfunction. 2. Normal right ventricle size and systolic function. 3. Mild aortic valve sclerosis. 4. Suggestive of moderate elevation of pulmonary artery systolic pressure. 5. Small pericardial effusion measuring 0.6 cm over the right ventricle free wall laterally and extending thinly over the right atrial free wall. No diastolic chamber collapse. 6. Technically difficult echocardiogram. DVT prophylaxis ordered?: Yes. Eliquis. ASSESSMENT AND PLAN: 82-year-old pertinent past medical history of A. concepcion on anticoagulation and seizures presented to the ER due to "fast heart rate" and slurred speech. She was admitted for management of A. fib with RVR and rule out TIA/CVA. 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 - Lasix 20mg IVx1 now -CT-Chest - PENDING -monitor clinical improvement. Slurred speech - possibly 2/2 TIA or UTI (Resolved) -Slurred Speech with known history of Afib/Aflutter -s/p Rocephin x1 in ER. afebrile since admission. Leukocytosis resolved -CT head and MRI: negative for acute changes. does have encephalomalacia in the right frontal lobe. -Resume anticoagulation, Eliquis. -ASA limited role in presentation of stroke in patient with a. fib. -speech swallow eval: unable to asses for aspiration because of patient body habitus Small Pericardial Effusion -negative clinical signs of tamponade on admission -monitor for symptoms. 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 -Follow up as outpatient DVT Prophylaxis -C/W Eliquis - NOAC for a.Fib PT/OT -consulted Diet: Per Speech therapy recommendations. Code Status DNR/DNI VS, I&O, 24H, Fishbone Vital Signs/I&O Vital Signs Date Time Temp Pulse Resp B/P (MAP) Pulse Ox O2 Delivery O2 Flow Rate FiO2 11/09/18 09:49 92 11/09/18 09:48 109/65 11/09/18 08:00 97.9 20 94 11/08/18 16:01 2.0 11/04/18 11:00 Nasal Cannula I&O- Last 24 Hours up to 6 AM 11/09/18 06:00 Intake Total 820 ml Balance 820 ml Laboratory Data 24H LABS Laboratory Tests 2 11/09/18 05:19: Nucleated Red Blood Cells % (auto) 0.0, Anion Gap 7L, Glomerular Filtration Rate > 60.0, Blood Urea Nitrogen 8#, Creatinine 0.46L, Sodium Level 138, Potassium Level 3.9, Chloride Level 105, Carbon Dioxide Level 26, Calcium Level 8.6L, Magnesium Level 1.8, C-Reactive Protein, Quantitative 4.02H, Digoxin Level 0.9 CBC/BMP Laboratory Tests 11/09/18 05:19 Red Blood Count 3.84 L, Mean Corpuscular Volume 101.6 H, Mean Corpuscular Hemoglobin 33.9 H, Mean Corpuscular Hemoglobin Concent 33.3, Red Cell Distribution Width 13.6, Calcium Level 8.6 L Microbiology Microbiology 11/04/18 Urine Culture - Final, Complete GME ATTESTATION GME ATTESTATION My faculty preceptor for this patient encounter was physically present during the encounter and was fully available. All aspects of the patient interview, examination, medical decision making process, and medical care plan development were reviewed and approved by the faculty preceptor. The faculty preceptor is aware and concurs with the plan as stated in the body of this note and will attest to such by his/her cosignature. ATTENDING NOTE I, Dennis Alonso, have both independently examined this patient as well as reviewed the documentation. I have discussed in detail with the resident the findings and plan of treatment as documented in the residents documentation. I will continue to follow the patient and offer further guidance to the patients care as necessary during this hospital stay. LIBBY CAPPS DO Nov 09, 2018 13:00 DENNIS ALONSO MD Nov 09, 2018 17:22
[2018-11-09] MEDS: diphenhydrAMINE CREAM 30GM TOP PRN (14:00)
[2018-11-09] MEDS: ACETAMINOPHEN TAB 650MG DOSE (2X325MG) PO PRN (14:00)
[2018-11-09 16:00] VITALS: BP 118/68
[2018-11-09 20:00] VITALS: BP 122/84
[2018-11-10] VITALS (7 sets, daily range): BP systolic 100–133; BP diastolic 65–84
[2018-11-10 05:37] LABS: HEMATOCRIT 39.1 % (36.0-47.0); HEMOGLOBIN 12.9 g/dl (12.0-15.5); MEAN CORPUSCULAR HEMOGLOBIN 33.8 pg (27.0-33.0); MEAN CORPUSCULAR VOLUME 102.4 fl (80.0-96.0); PLATELET COUNT, AUTOMATED 295 10^3/uL (150-450); RED BLOOD COUNT 3.82 10^6/uL (4.00-5.40); WHITE BLOOD COUNT 8.9 10^3/uL (4.0-10.0)
[2018-11-10 05:44] LABS: BLOOD UREA NITROGEN 8 MG/DL (7-18); CALCIUM LEVEL 8.6 MG/DL (8.8-10.2); CARBON DIOXIDE LEVEL 27 MEQ/L (21-32); CHLORIDE LEVEL 103 MEQ/L (98-107); CREATININE FOR GFR 0.51 MG/DL (0.55-1.30); GLOMERULAR FILTRATION RATE > 60.0 (>32); GLUCOSE, FASTING 85 MG/DL (70-100); MAGNESIUM LEVEL 1.6 MG/DL (1.8-2.4); POTASSIUM SERUM 3.8 MEQ/L (3.5-5.1); SODIUM LEVEL 137 MEQ/L (136-145)
[2018-11-10] MEDS: SLF 3 ML SYR IV SCH ×3 (06:00→21:46)
[2018-11-10] MEDS ORDERED: MAG SULF 1GM/100ML (MAG RUN) 1 GM in APPROPRIATE DILUENT 1 EA IV ONE (08:00)
[2018-11-10] MEDS: levETIRAcetam 250MG TABLET (KEPPRA) PO SCH ×2 (08:03→20:46)
[2018-11-10] MEDS: PRIMIDONE 50 MG TAB PO SCH ×2 (08:03→20:46)
[2018-11-10] MEDS: NORTRIPTYLINE 10 MG CAP PO SCH ×2 (08:03→20:46)
[2018-11-10] MEDS: DIGOXIN 0.125 MG TAB PO SCH (08:04)
[2018-11-10] MEDS: SENOKOT S TAB PO SCH ×2 (08:04→20:46)
[2018-11-10] MEDS: APIXABAN 5 MG TAB (ELIQUIS) PO SCH ×2 (08:04→20:46)
[2018-11-10] MEDS: METOPROLOL TART 25 MG TABLET PO SCH ×2 (08:04→20:47)
--- NOTE | 2018-11-10 13:45 | IPNPDOC ---
Text Note Date of Service The patient was seen on 11/10/18. NOTE Subjective: Patient is an 82-year-old female with a pertinent past medical history of A. fib on anticoagulation and seizures presented to the ER due to "fast heart rate" and slurred speech. She was admitted for management of A. fib with RVR. Patient was seen and examined at the bedside. Patient has no new complaints this morning. Her heart rate appears to be better controlled nausea, vomiting, abdominal pain, constipation, diarrhea or discomfort with urination. No complaints of Chest pain, SOB or palpitations. 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 Small bilateral pleural effusions. Atelectasis in the right lower lobe. No definite infiltrate. - Possible undiagnosed sleep apnea, should consider for sleep study outpatient when discharged. - s/p Lasix s/p Slurred speech - possibly 2/2 TIA, possibly 2/2 UTI (Likely Resolved) - s/p Slurred Speech with known history of Afib/Aflutter - s/p Rocephin x1 in ER. afebrile since admission. Leukocytosis resolved - CT head and MRI: negative for acute changes. does have encephalomalacia in the right frontal lobe. - c/w anticoagulation with Eliquis. - ASA limited role in presentation of stroke in patient with a. fib. - speech swallow eval: unable to asses for aspiration because of patient body habitus Small Pericardial Effusion - negative clinical signs of tamponade on admission - monitor for symptoms. 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 - f/u outpatient DVT Prophylaxis - c/w full anticoagulation with Eliquis Code Status: - DNR/DNI Disposition: - Anticipate transition back to longterm within 24 hours VS,Michaelbone, I+O VS, Fishbone, I+O Laboratory Tests 11/10/18 05:02 Red Blood Count 3.82 L, Mean Corpuscular Volume 102.4 H, Mean Corpuscular Hemoglobin 33.8 H, Mean Corpuscular Hemoglobin Concent 33.0, Red Cell Distribution Width 13.4, Calcium Level 8.6 L Vital Signs Date Time Temp Pulse Resp B/P (MAP) Pulse Ox O2 Delivery O2 Flow Rate FiO2 11/10/18 12:43 107 119/76 11/10/18 12:00 97.6 18 99 11/08/18 16:01 2.0 11/04/18 11:00 Nasal Cannula I&O- Last 24 Hours up to 6 AM 11/10/18 06:00 Intake Total 1090 ml Output Total 1000 ml Balance 90 ml ASHU ALONSO MD Nov 10, 2018 13:45
[2018-11-10] MEDS: diltiaZEM **CD** 180 MG CAP PO SCH (17:02)
[2018-11-11 04:00] VITALS: BP 104/65
[2018-11-11 05:10] LABS: HEMATOCRIT 36.8 % (36.0-47.0); HEMOGLOBIN 12.3 g/dl (12.0-15.5); MEAN CORPUSCULAR HEMOGLOBIN 33.9 pg (27.0-33.0); MEAN CORPUSCULAR HGB CONC 33.4 g/dl (32.0-36.5); MEAN CORPUSCULAR VOLUME 101.4 fl (80.0-96.0); PLATELET COUNT, AUTOMATED 295 10^3/uL (150-450); RED BLOOD COUNT 3.63 10^6/uL (4.00-5.40); WHITE BLOOD COUNT 9.1 10^3/uL (4.0-10.0)
[2018-11-11 05:33] LABS: BLOOD UREA NITROGEN 8 MG/DL (7-18); CALCIUM LEVEL 8.5 MG/DL (8.8-10.2); CARBON DIOXIDE LEVEL 27 MEQ/L (21-32); CHLORIDE LEVEL 104 MEQ/L (98-107); GLOMERULAR FILTRATION RATE > 60.0 (>32); GLUCOSE, FASTING 93 MG/DL (70-100); MAGNESIUM LEVEL 1.8 MG/DL (1.8-2.4); POTASSIUM SERUM 4.1 MEQ/L (3.5-5.1); SODIUM LEVEL 138 MEQ/L (136-145)
[2018-11-11] MEDS: diltiaZEM **CD** 180 MG CAP PO SCH (05:52)
[2018-11-11] MEDS: SLF 3 ML SYR IV SCH (05:52)
[2018-11-11 08:00] VITALS: BP 128/74
[2018-11-11 09:25] VITALS: BP 128/74
[2018-11-11] MEDS: METOPROLOL TART 25 MG TABLET PO SCH (09:25)
[2018-11-11] MEDS: APIXABAN 5 MG TAB (ELIQUIS) PO SCH (09:25)
[2018-11-11] MEDS: SENOKOT S TAB PO SCH (09:26)
[2018-11-11] MEDS: NORTRIPTYLINE 10 MG CAP PO SCH (09:26)
[2018-11-11] MEDS: DIGOXIN 0.125 MG TAB PO SCH (09:26)
[2018-11-11] MEDS: levETIRAcetam 250MG TABLET (KEPPRA) PO SCH (09:26)
[2018-11-11] MEDS: PRIMIDONE 50 MG TAB PO SCH (09:26)
[2018-11-11] MEDS ORDERED: METO1TAB87 PO (10:00)
[2018-11-11] MEDS ORDERED: CARD180C4 PO (10:00)
[2018-11-11] MEDS ORDERED: DIGO0.12 PO (10:00)
[2018-11-11] MEDS ORDERED: TORS10TA3 PO (10:30)
--- NOTE | 2018-11-11 11:48 | DS.PDOC ---
Discharge Summary General Date of Admission Nov 04, 2018 at 10:04 Date of Discharge 11/11/2018 Primary Care Physician: MANUEL CALDWELL DO Discharge Summary PROCEDURES PERFORMED DURING STAY: None. ADMITTING DIAGNOSES: Atrial Fibrillation w RVR Slurred Speech with known history of Afib/Aflutter Diastolic congestive heart failure LV EF 70% Moderate Pulmonary HTN Small pericardial effusion, Hx of Seizure Disorders Cystic Lesion on CT Head DISCHARGE DIAGNOSES: Atrial Fibrillation w RVR Diastolic congestive heart failure LV EF 70% with severe PHTN (49mmHg) s/p Slurred speech - possibly 2/2 TIA, possibly 2/2 UTI (Likely Resolved) Small Pericardial Effusion Hx of Seizure Disorders Hx of Cystic Lesion on CT Head COMPLICATIONS/CHIEF COMPLAINT: Atrial Flutter With Rvr. HISTORY OF PRESENT ILLNESS: 82-year-old DO NOT RESUSCITATE, DO NOT INTUBATE [facility] female resident with past medical history of seizure disorder, osteoarthritis, peripheral neuropathy, chronic diastolic congestive heart failure, recurrent urinary tract infections, dehydration, Afib w RVR and TIA presented to the ER due to "fast heart rate". According to the daughter, Vicky, pt has been diagnosed with Afib on anti coagulant in early October when pt was admitted for dehydration. MRI brain: gliosis, no CVA. and since being at the detention despite being compliant with anticoagulation, pt has had worsening slurred speech, and difficulty feeding herself, requiring staff to feed her. She has had occasional "heaviness" in the chest when her heart rate races, but documented in the 80's by SNF nurses per Daughter. Today, pt's daughter was called due to "fast heart rate," and was sent to the ER where pt was found to have Aflutter 135-166 on Telemetry. Due to sbp80'smmHg, pt was given digoxin 0.5 mg and 0.25 mg with subsequent increase of sbp to low 100mmHg at the bedside. According to the daughter, pt has no c/o fever, chills, nausea, vomiting, abd pain, sob, lightheadedness, dizziness, weight changes, cough, but admits to slurred speech, difficulty eating with a "downward " course since being at the detention. denies any dysuria, urgency, frequency. c/o generalized weakness, difficulty ambulating requiring assistance. In the ER, pt was found to have negative card yadav, EKG: Aflutter with RVR 130 . HOSPITAL COURSE: While the patient was admitted her fibrillation rate was controlled with a Cardizem drip and she transitioned to oral Cardizem plus digoxin and metoprolol tartrate. Her diastolic heart failure was compensated but her echocardiogram prior to admission was reviewed. She does have pulmonary hypertension at 49 mmHg. She did need oxygen at night she possibly has an undiagnosed sleep apnea and we recommend that she should be considered for sleep study outpatient when discharged. We reduced her torsemide to 10 mg every 2 days. For her slurred speech imaging was done but was negative for an acute CVA. She is back to baseline. She had a dirty urinalysis in the ED and was given 1 dose of Rocephin. During her admission she was afebrile and leukocytosis resolved. She is to follow-up with her primary care provider in 7-10 days she is stable for discharge back to [facility]. DISCHARGE MEDICATIONS: Please see below. ALLERGIES: Please see below. PHYSICAL EXAMINATION ON DISCHARGE: VITAL SIGNS: Please see below. GENERAL: Pleasant 82-year-old female in no acute distress not using any accessory muscles able to answer questions without being short of breath. HEENT: Atraumatic moist mucous membranes left facial droop and slurred speech. NO JVD can be noted because of body habitus CARDIOVASCULAR: Irregularly irregular tachycardia faint 2/6 systolic murmur at the second right intercostal space RESPIRATORY: Diminished breath sounds bibasiliar crackles. ABDOMINAL: Obese abdomen soft nontender well-healed surgical scars on the abdomen EXTREMITIES: No lower extremity edema, negative calf tenderness NEUROLOGICAL: Alert and oriented to place but not year. generalized weakness in the upper and lower extremities LABORATORY DATA: Please see below. IMAGIN11/04/2018 Chest x-ray Impression: Probable tiny volume of fluid in the minor fissure. Mild cardiomegaly. Head CT Impression: Chronic changes including vascular calcification, diffuse atrophy, small vessel changes, encephalomalacia in the right frontal lobe, and a right frontal lobe cystic lesion all unchanged from prior CT study in 2013 . No acute intracranial abnormality. Brain MRI IMPRESSION: There is a complex cystic lesion to the right of midline in the frontal region either anterior to or extending into the frontal horns of the lateral ventricles as on previous brain imaging studies. There is post craniotomy change on the right. Encephalomalacia is seen in the right frontal lobe. Diffuse volume loss and small vessel changes are again noted. There is no evidence of acute hemorrhage, infarct or new mass lesion. The findings are essentially unchanged from the prior MRI study from October 28, 2012. Esophagus x-ray Impression: Laryngeal penetration was observed with nectar and thin consistency barium material. We were unable to see below the level of the glottis due to body habitus. 11/07/2018 Chest x-ray IMPRESSION: Moderate cardiomegaly. Hypoinflation. Bibasilar discoid atelectasis versus fibrosis. 11/09/2018 CT chest Impression: Cardiomegaly. Small bilateral pleural effusions. Atelectasis in the right lower lobe. No definite infiltrate. ACTIVITY: As tolerated. DIET: Mechanical soft DISPOSITION: [facility] DISCHARGE INSTRUCTIONS: 1. Follow-up with PCP in 7-10 days consider sleep study for undiagnosed sleep apnea 2. Follow-up with cardiology in 2-3 week 3. Stop home with Toprol 50 mg daily, Aldactone 12.5 mg daily and torsemide 20 mg daily 4. Start digoxin 0.125 mg daily, diltiazem 180 milligrams twice a day at 6:00 AM and p.m., and metoprolol 25 mg twice a day, torsemide 10 mg every 2 days. 5. If symptoms return or worsen please call your PCP and/or return to the ER DISCHARGE CONDITION: Stable. TIME SPENT ON DISCHARGE: Greater than 35 minutes. Vital Signs/I&Os Vital Signs Date Time Temp Pulse Resp B/P (MAP) Pulse Ox O2 Delivery O2 Flow Rate FiO2 11/11/18 09:26 92 11/11/18 09:25 128/74 11/11/18 08:00 97.5 20 98 2.0 I&O- Last 24 Hours up to 6 AM 11/11/18 06:00 Intake Total 1090 ml Output Total 850 ml Balance 240 ml Laboratory Data Labs 24H Laboratory Tests 2 11/11/18 04:59: Nucleated Red Blood Cells % (auto) 0.2H, Anion Gap 7L, Glomerular Filtration Rate > 60.0, Blood Urea Nitrogen 8, Creatinine 0.50L, Sodium Level 138, Potassium Level 4.1, Chloride Level 104, Carbon Dioxide Level 27, Calcium Level 8.5L, Magnesium Level 1.8 CBC/BMP Laboratory Tests 11/11/18 04:59 Red Blood Count 3.63 L, Mean Corpuscular Volume 101.4 H, Mean Corpuscular Hemoglobin 33.9 H, Mean Corpuscular Hemoglobin Concent 33.4, Red Cell Distribution Width 13.4, Calcium Level 8.5 L Microbiology Microbiology 11/04/18 Urine Culture - Final, Complete Discharge Medications Scheduled Acetaminophen (Acetaminophen) 500 Mg Tab, 500 MG PO TID, (Reported) 0900, 1300, 1900 Apixaban (Eliquis) 5 Mg Tab, 5 MG PO BID Digoxin (Digoxin) 125 Mcg Tablet, 0.125 MG PO DAILY Diltiazem Hcl (Cardizem Cd) 180 Mg Cap.er.24h, 180 MG PO BID@0600,1800 Docusate Sodium (Colace) 100 Mg Cap, 100 MG PO BID, (Reported) Esomeprazole Magnesium (Esomeprazole Magnesium) 20 Mg Cap, 20 MG PO DAILY, (Reported) Levetiracetam (Keppra) 500 Mg Tab, 500 MG PO BID, (Reported) Magnesium Chloride (Slow-Mag) 1 Tab Tab, 2 TAB PO DAILY, (Reported) Metoprolol Tartrate (Metoprolol Tartrate) 25 Mg Tablet, 25 MG PO BID Nortriptyline Hcl (Pamelor) 10 Mg Cap, 20 MG PO BID, (Reported) Polyethylene Glycol (Miralax) 1 Pow Pow, 17 GM PO DAILY, (Reported) Primidone (Primidone) 50 Mg Tab, 150 MG PO BID, (Reported) Sennosides/Docusate Sodium (Senna-S Tablet) 1 Tab Tab, 2 TAB PO BID, (Reported) Sodium Phosphate/Biphosphate (Fleet Enema 7-19 gm/118Ml) 1 Lesvia Lesvia, 1 EA NJ Q2WK, (Reported) 1 TIME PER DAY EVERY 14 DAYS AT 1400 Torsemide (Torsemide) 10 Mg Tablet, 1 TAB PO Q2D Scheduled PRN Acetaminophen (Tylenol) 325 Mg Tab, 650 MG PO Q4H PRN for MILD PAIN (PS 1-4), (Reported) Bisacodyl (Dulcolax) 10 Mg Sup, 10 MG NJ DAILY PRN for CONSTIPATION, (Reported) Mag Hydrox/Aluminum Hyd/Simeth (Magnesium-Aluminum Suspension) 1 Ирина Ирина, 30 ML PO Q4H PRN for GI UPSET, (Reported) Milk Of Magnesia (Milk of Magnesia) 1,200 Mg/15 Ml Ирина, 30 ML PO DAILY PRN for CONSTIPATION, (Reported) Polyvinyl Alcohol (Artificial Tears) 1.4 % Marina, 1 DROP OU Q4H PRN for DRY EYES, (Reported) Sodium Phosphate/Biphosphate (Fleet Enema 7-19 gm/118Ml) 1 Lesvai Lesvia, 1 EA NJ DAILY PRN for CONSTIPATION, (Reported) Allergies Coded Allergies: prednisone (Verified Allergy, Unknown, 10/29/18) GME ATTESTATION GME ATTESTATION My faculty preceptor for this patient encounter was physically present during the encounter and was fully available. All aspects of the patient interview, examination, medical decision making process, and medical care plan development were reviewed and approved by the faculty preceptor. The faculty preceptor is aware and concurs with the plan as stated in the body of this note and will attest to such by his/her cosignature. ATTENDING NOTE I, Dennis Coleman, have both independently examined this patient as well as reviewed the documentation. I have discussed in detail with the resident the findings and plan of treatment as documented in the residents documentation. I will continue to follow the patient and offer further guidance to the patients care as necessary during this hospital stay. LIBBY CAPPS DO Nov 11, 2018 11:48 DENNIS COLEMAN MD Nov 11, 2018 15:06
== END 2018-11-11 11:36 | DRG 309 ==
LOC: EDBD 07:53 → M ED 07:53 → M ED INP 10:04 → M PCU 11:15
PROVIDERS: ADMIT General Practice; ATTEND Internal Medicine
DX: I48.91 Unspecified atrial fibrillation (principal); I50.32 Chronic diastolic (congestive) heart failure; N39.0 Urinary tract infection, site not specified; G45.9 Transient cerebral ischemic attack, unspecified; I31.3 Pericardial effusion (noninflammatory); G40.909 Epilepsy, unspecified, not intractable, without status epilepticus; I27.20 Pulmonary hypertension, unspecified; R47.81 Slurred speech; Z66 Do not resuscitate; M19.90 Unspecified osteoarthritis, unspecified site; G62.9 Polyneuropathy, unspecified; Z79.01 Long term (current) use of anticoagulants; I48.92 Unspecified atrial flutter; G47.30 Sleep apnea, unspecified; Z79.899 Other long term (current) drug therapy; Z88.8 Allergy status to other drugs, medicaments and biological substances; E86.0 Dehydration; I95.9 Hypotension, unspecified

== ENCOUNTER → 2018-11-04 | Outpatient (REF) | payer MEDICARE, MEDICAID ==
[~2018-11-04] MED LIST changes: +ACET650S3 PR; +ALUMSUS2 PO; +ARTI99.0 OU; +ASPI-255 PO; -ASPI325T25 PO; +ASPI81TAEC PO; +DULC10SU2 PR; +ELIQ5TAB PO; +ESOM0.1C PO; +FLEEENE4 PR; +GABA-1171 PO; +LASI20TA3 PO; +LIDO2JELLY TOP; +METO50TA7 PO; +MILK120011 PO; +OSEL75CA PO; +SENN1TAB41 PO; -SENN8.6T7 PO; +SLOWTAB2 PO; +TORS20TA2 PO; +TYLE325T5 PO
== END ==
PROVIDERS: ATTEND Nurse Practitioner Adult Health
DX: I50.9 Heart failure, unspecified (principal)

== ENCOUNTER → 2018-11-11 | Outpatient (REF) | payer MEDICARE, MEDICAID ==
[~2018-11-11] MED LIST changes: +CARD180C4 PO; +DIGO0.12 PO; +METO1TAB87 PO; +TORS10TA3 PO; +TORS20TA2 PO
--- NOTE | 2018-11-11 16:25 | REP ---
Portable chest, 04:16 p.m., single AP semi upright view: Comparison is 11/07/2018. Almost the entire right lung is obscured by the heart and mediastinum. The visualized portion of the right lung is clear. The visualized portion of the left lung is clear. Cardiac size again appears enlarged, unchanged. Old left humeral fracture is again identified. Impression: No acute cardiopulmonary findings are identified. Because of difficulties in positioning this patient, depending on clinical findings, CT might be considered for followup. Electronically Signed by Bang Montano MD 11/11/2018 04:17 P
== END ==
PROVIDERS: ATTEND Internal Medicine
DX: I50.9 Heart failure, unspecified (principal)

== ENCOUNTER → 2018-11-13 | Outpatient (REF) | payer MEDICARE, MEDICAID ==
[2018-11-13 09:30] LABS: HEMATOCRIT 41.5 % (36.0-47.0); HEMOGLOBIN 13.8 g/dl (12.0-15.5); MEAN CORPUSCULAR HEMOGLOBIN 34.3 pg (27.0-33.0); MEAN CORPUSCULAR HGB CONC 33.3 g/dl (32.0-36.5); MEAN CORPUSCULAR VOLUME 103.2 fl (80.0-96.0); PLATELET COUNT, AUTOMATED 298 10^3/uL (150-450); RED BLOOD COUNT 4.02 10^6/uL (4.00-5.40); WHITE BLOOD COUNT 9.3 10^3/uL (4.0-10.0)
[2018-11-13 10:18] LABS: BLOOD UREA NITROGEN 13 MG/DL (7-18); CARBON DIOXIDE LEVEL 27 MEQ/L (21-32); CHLORIDE LEVEL 102 MEQ/L (98-107); CREATININE FOR GFR 0.66 MG/DL (0.55-1.30); GLOMERULAR FILTRATION RATE > 60.0 (>32); GLUCOSE, FASTING 88 MG/DL (70-100); POTASSIUM SERUM 3.9 MEQ/L (3.5-5.1); SODIUM LEVEL 138 MEQ/L (136-145)
== END ==
PROVIDERS: ATTEND Nurse Practitioner Adult Health
DX: I50.9 Heart failure, unspecified (principal)

== ENCOUNTER → 2018-11-20 | Outpatient (REF) | payer MEDICARE, MEDICAID ==
[2018-11-20 10:39] LABS: HEMATOCRIT 41.8 % (36.0-47.0); HEMOGLOBIN 14.1 g/dl (12.0-15.5); MEAN CORPUSCULAR HGB CONC 33.7 g/dl (32.0-36.5); MEAN CORPUSCULAR VOLUME 100.7 fl (80.0-96.0); PLATELET COUNT, AUTOMATED 297 10^3/uL (150-450); RED BLOOD COUNT 4.15 10^6/uL (4.00-5.40); WHITE BLOOD COUNT 8.5 10^3/uL (4.0-10.0)
[2018-11-20 11:10] LABS: BLOOD UREA NITROGEN 14 MG/DL (7-18); CALCIUM LEVEL 8.6 MG/DL (8.8-10.2); CARBON DIOXIDE LEVEL 32 MEQ/L (21-32); CHLORIDE LEVEL 92 MEQ/L (98-107); CREATININE FOR GFR 0.67 MG/DL (0.55-1.30); DIGOXIN LEVEL 0.9 NG/ML (0.5-2.0); GLOMERULAR FILTRATION RATE > 60.0 (>32); GLUCOSE, FASTING 78 MG/DL (70-100); POTASSIUM SERUM 3.7 MEQ/L (3.5-5.1); SODIUM LEVEL 134 MEQ/L (136-145)
== END ==
PROVIDERS: ATTEND Nurse Practitioner Adult Health
DX: I48.91 Unspecified atrial fibrillation (principal); Z51.81 Encounter for therapeutic drug level monitoring

== ENCOUNTER → 2018-11-27 | Outpatient (REF) | payer MEDICARE, MEDICAID ==
[2018-11-27 09:30] LABS: BLOOD UREA NITROGEN 17 MG/DL (7-18); CALCIUM LEVEL 8.8 MG/DL (8.8-10.2); CARBON DIOXIDE LEVEL 34 MEQ/L (21-32); CHLORIDE LEVEL 92 MEQ/L (98-107); CREATININE FOR GFR 0.77 MG/DL (0.55-1.30); DIGOXIN LEVEL 1.2 NG/ML (0.5-2.0); GLOMERULAR FILTRATION RATE > 60.0 (>32); GLUCOSE, FASTING 98 MG/DL (70-100); POTASSIUM SERUM 3.2 MEQ/L (3.5-5.1); SODIUM LEVEL 135 MEQ/L (136-145)
[2018-11-27 10:18] LABS: NT-PRO BNP 1235 PG/ML (<450)
[2018-11-27 12:57] LABS: HEMATOCRIT 42.8 % (36.0-47.0); HEMOGLOBIN 14.3 g/dl (12.0-15.5); MEAN CORPUSCULAR HEMOGLOBIN 33.4 pg (27.0-33.0); MEAN CORPUSCULAR HGB CONC 33.4 g/dl (32.0-36.5); PLATELET COUNT, AUTOMATED 343 10^3/uL (150-450); RED BLOOD COUNT 4.28 10^6/uL (4.00-5.40); WHITE BLOOD COUNT 8.7 10^3/uL (4.0-10.0)
== END ==
PROVIDERS: ATTEND Internal Medicine
DX: I48.91 Unspecified atrial fibrillation (principal); I50.9 Heart failure, unspecified